=== PATIENT | female | born 1995 | race Caucasian/White ===

== ENCOUNTER 2023-10-07 21:11 | Inpatient (IN) ==
[2023-10-07] MEDS: SODIUM CHLORIDE 0.9% 1,000 ML IV SCH (21:44)
[2023-10-07 22:21] LABS: Appearance Urine Clear (Clear); Bilirubin Urine Negative (Negative); Blood Urine Negative (Negative); Color Urine Yellow; Glucose Urine UA Negative (Negative); Ketones Urine Trace (Negative); Leukocyte Esterase Urine Negative (Negative); Nitrite Urine Negative (Negative); Protein Urine Negative (Negative); Specific Gravity Urine 1.033 (1.000-1.030); Urobilinogen Urine Negative (Negative); pH Urine 6.5 (4.5-7.5)
[2023-10-07] MEDS: SODIUM CHLORIDE 0.9% 1,000 ML IV ONE (22:22)
[2023-10-07] MEDS: MAGNESIUM SULFATE / D5W 1 GM/100 ML BAG IV SCH (22:23)
[2023-10-07 22:27] LABS: Basophils # (auto) 0.03 K/uL (0.00-0.20); Basophils % (auto) 0.4 %; Eosinophils # (auto) 0.13 K/uL (0.00-0.50); Eosinophils % (auto) 1.7 %; Hematocrit (blood only) 41.4 % (37.0-47.0); Hemoglobin 13.7 g/dl (12.0-16.0); Immature Granulocytes # (auto) 0.04 K/uL (0.01-0.20); Immature Granulocytes % (auto) 0.5 %; Lymphocytes # (auto) 1.39 K/uL (1.20-3.40); Lymphocytes % (auto) 17.7 %; Mean Corpuscular Hemoglobin 29.6 pg (25.0-34.0); Mean Corpuscular Hgb Conc 33.1 g/dL (32.0-36.0); Mean Corpuscular Volume 89.4 fL (80.0-100.0); Monocytes # (auto) 0.53 K/uL (0.11-0.59); Monocytes % (auto) 6.7 %; Neutrophils # (auto) 5.74 K/uL (1.40-6.50); Platelet Count 267 K/uL (130-400); RDW Coefficient of Variation 13.1 % (11.5-14.5); RDW Standard Deviation 42.9 fL (36.4-46.3); Red Blood Count 4.63 M/uL (4.20-5.40); White Blood Count 7.86 K/ul (4.8-10.8)
--- NOTE | 2023-10-07 22:41 | CT Scan Report ---
Exam(s): CT HEAD Without Contrast EXAM: CT Head Without Intravenous Contrast CLINICAL HISTORY: Reason for exam: ams. TECHNIQUE: Axial computed tomography images of the head/brain without intravenous contrast. CTDI is 79 mGy and DLP is 3073 mGy-cm. Automated exposure control was utilized for the study. A dose lowering technique was utilized adhering to the principles of ALARA. COMPARISON: No relevant prior studies available. FINDINGS: Limitations: Motion artifact. Brain: Unremarkable. No hemorrhage. No significant white matter disease. No edema. Cifuentes-white matter differentiation maintained. Ventricles: Unremarkable. No hydrocephalus. Bones/joints: Unremarkable. No acute fracture. Soft tissues: Unremarkable. Sinuses: Unremarkable as visualized. No acute sinusitis. Mastoid air cells: Unremarkable as visualized. No mastoid effusion. IMPRESSION: Degraded by motion. No acute intracranial process as visualized. Electronically signed by: Jeanne Davidson M.D. 10/07/23 22:40 PM
[2023-10-07 22:46] LABS: Amphetamines+Metham, Urine Neg (Neg); Barbiturates, Urine Neg (Neg); Benzodiazepine, Urine Neg (Neg); Cocaine, Urine Neg (Neg); MDMA (Ecstacy), Urine Neg (Neg); Marijuana, Urine Pos (Neg); Methadone, Urine Neg (Neg); Opiate, Urine Neg (Neg); Phencyclidine, Urine Neg (Neg)
[2023-10-07 22:54] LABS: Alanine Aminotransferase 83 U/L (7-52); Albumin Globulin Ratio 1.1 (0.9-2); Albumin Level 3.9 gm/dl (3.4-5.0); Alkaline Phosphatase 130 U/L (34-104); BUN Creatinine Ratio 24.3 (10-20); Bilirubin,Total 0.3 mg/dl (0.2-1.0); Blood Urea Nitrogen 17 mg/dl (6-23); Calcium 8.7 mg/dl (8.6-10.3); Carbon Dioxide 23 mmol/L (21-32); Chloride 105 mmol/L (98-107); Creatinine Clr Calc Pharmacy 167.6 ml/min; Est GFR (African American) 138.6 ml/min; Est GFR (Non-African American) 119.6 ml/min; Globulin 3.6 gm/dl (2.5-4.0); Glucose 116 mg/dl (70-99(Fasting)); Total Protein 7.5 gm/dl (6.0-8.3)
[2023-10-07 23:00] LABS: Thyroid Stimulating Hormone 7.977 uIu/ml (0.300-4.500)
--- NOTE | 2023-10-07 23:04 | Emergency Department Note ---
History of Present Illness General Chief complaint: Overdose (Intentional) Stated complaint: OVERDOSE Time Seen by Provider: 10/07/23 21:24 Source: EMS History of Present Illness Provider complaint: Overdose 28-year-old female from [facility] presents to the emergency department via EMS for overdose. Per nursing and EMS the patient took 10 tablets of 50 mg hydroxyzine at an unknown time. Home Medications Medication Instructions Recorded Confirmed Type albuterol sulfate 90 mcg/actuation 2 puff inhalation QID 11/23/22 01/29/23 History aerosol inhaler aripiprazole 5 mg tablet 5 mg PO DAILY 11/23/22 01/29/23 History melatonin 3 mg tablet 6 mg PO HS PRN Sleep 11/23/22 01/29/23 History cariprazine 3 mg capsule (Vraylar) 3 mg PO DAILY 11/26/22 01/29/23 History doxepin 50 mg capsule 50 mg PO DAILY 11/26/22 01/29/23 History prazosin 2 mg capsule 4 mg PO QPM 11/26/22 01/29/23 History sennosides 8.6 mg-docusate sodium 1 tab-cap PO BID 11/26/22 01/29/23 History 50 mg tablet (Senna with Docusate Sodium) levothyroxine 25 mcg tablet 25 mcg PO DAILY #30 tabs 12/11/22 01/29/23 Rx drospirenone 3 mg-ethinyl 1 tab PO DAILY #84 tabs 12/23/22 01/29/23 Rx estradiol 0.02 mg tablet (ALFA (28)) famotidine 20 mg tablet 20 mg PO HS #90 tabs 12/23/22 01/29/23 Rx cetirizine 10 mg tablet 10 mg PO DAILY #30 tabs 01/21/23 01/29/23 Rx fluticasone propionate 50 2 spray intranasal DAILY #16 grams 01/21/23 01/29/23 Rx mcg/actuation nasal spray,suspension (Allergy Relief (fluticasone)) amoxicillin 500 mg capsule 500 mg PO TID 01/29/23 01/29/23 History doxycycline monohydrate 100 mg 100 mg PO BID #20 tabs 01/29/23 01/29/23 Rx tablet fexofenadine 180 mg tablet 180 mg PO DAILY #30 tabs 06/09/23 06/09/23 Rx (Guerda Allergy) fluticasone propionate 50 See Rx Instructions .Route 01/29/23 01/29/23 Rx mcg/actuation nasal .COMPLEX #9.9 grams spray,suspension (Allergy Relief (fluticasone)) prednisone 20 mg tablet 40 mg (2 x 20 mg) PO DAILY 5 days 01/29/23 01/29/23 Rx #10 tabs Allergies Allergy/AdvReac Type Severity Reaction Status Date / Time aspirin Allergy Intermediate hives Verified 01/29/23 13:58 Past Med/Surg History Medical History Hemorrhoids Chronic constipation Asthma Mood disorder Bipolar 1 disorder Learning disability PTSD (post-traumatic stress disorder) Bipolar disorder Anxiety Depression Surgical History No significant past surgical history Family History Father Myocardial infarction Other No significant family history Social History Smoking Status: Unknown if ever smoked Tobacco Type: Cigarettes and E-cigarettes / Vaping Do You Dip or Chew Tobacco: No; Hx Alcohol Use: No Hx Substance Use: No Preferred Language: Maltese marital status: Single Current Living Situation: Significant Other current occupational status: disabled How many Children do You have: 0 Feels Safe at Home: Declines to Answer Gender Identity: Female Physical Exam Vital Signs Vital Signs - 24 hr 10/07/23 21:04 10/07/23 21:19 10/07/23 21:19 Temperature Temperature Source Pulse Rate 149 H 146 H Pulse Rate from SpO2 Sensor 148 H Respiratory Rate 27 H Blood Pressure Blood Pressure Mean Pulse Oximetry 91 Oxygen Delivery Method Oxymask Oxygen Flow Rate 5 Sepsis Recent Fever Within 48 Hours Sepsis New/Unexplained Change in Mental Status Sepsis Action Taken by Nursing 10/07/23 21:20 10/07/23 21:20 10/07/23 21:25 Temperature 36.9 C Temperature Source Axillary Pulse Rate 136 H 136 H 121 H Pulse Rate from SpO2 Sensor 138 H Respiratory Rate 19 19 26 H Blood Pressure 143/114 H 102/75 Blood Pressure Mean 122 84 Pulse Oximetry 95 95 96 Oxygen Delivery Method Oxymask Oxymask Oxygen Flow Rate 5 5 Sepsis Recent Fever Within 48 Hours No Sepsis New/Unexplained Change in Mental Status No Sepsis Action Taken by Nursing No Action Required 10/07/23 21:30 10/07/23 21:40 10/07/23 21:43 Temperature Temperature Source Pulse Rate 140 H 126 H 125 H Pulse Rate from SpO2 Sensor 140 H 125 H 128 H Respiratory Rate 18 23 21 Blood Pressure Blood Pressure Mean Pulse Oximetry 94 97 95 Oxygen Delivery Method Oxygen Flow Rate Sepsis Recent Fever Within 48 Hours Sepsis New/Unexplained Change in Mental Status Sepsis Action Taken by Nursing 10/07/23 21:43 10/07/23 21:45 10/07/23 21:45 Temperature Temperature Source Pulse Rate 126 H Pulse Rate from SpO2 Sensor 127 H Respiratory Rate 24 Blood Pressure 104/88 107/82 Blood Pressure Mean 99 101 Pulse Oximetry 96 Oxygen Delivery Method Oxygen Flow Rate Sepsis Recent Fever Within 48 Hours Sepsis New/Unexplained Change in Mental Status Sepsis Action Taken by Nursing 10/07/23 21:50 10/07/23 22:00 10/07/23 22:00 Temperature Temperature Source Pulse Rate 122 H 119 H 119 H Pulse Rate from SpO2 Sensor 122 H 120 H Respiratory Rate 25 H 27 H 27 H Blood Pressure 102/75 Blood Pressure Mean 86 Pulse Oximetry 96 96 96 Oxygen Delivery Method Oxygen Flow Rate Sepsis Recent Fever Within 48 Hours Sepsis New/Unexplained Change in Mental Status Sepsis Action Taken by Nursing 10/07/23 22:02 10/07/23 22:02 Temperature Temperature Source Pulse Rate 118 H 118 H Pulse Rate from SpO2 Sensor 118 H Respiratory Rate 22 22 Blood Pressure 100/82 Blood Pressure Mean 93 Pulse Oximetry 96 96 Oxygen Delivery Method Oxygen Flow Rate Sepsis Recent Fever Within 48 Hours Sepsis New/Unexplained Change in Mental Status Sepsis Action Taken by Nursing Physical Exam GENERAL: Somnolent and ill-appearing. HENT: Exam performed. - Head: Normocephalic and atraumatic. EYES: Pupils 3 mm and reactive. CV: Tachycardic rate, regular rhythm, normal heart sounds and intact distal pulses. There is no peripheral edema. Palpable radial pulses bue. PULM/CHEST: Rhonchi bilaterally. ABD: The abdomen is soft. Obese. There is no tenderness. NEURO: GCS: 9 (E:2, V:2, M:5) Procedures Intubation sedative: Etomidate Mg Given: 20 paralytic: Succinylcholine Mg Given: 200 Laryngoscope: Yang (4) ET Tube Size: 7 ET Tube Uncuffed: Yes Tube Placement Confirmation: visualized tube passing through cords, no breath sounds over epigastrium and confirmation by capnometry Patient Tolerated Procedure: well Additional Comments: Right mainstem bronchus was intubated and then ET tube was repositioned after x- ray was reviewed. After repositioning chest x-ray then showed a satisfactory position. Course Course 2123: The patient was evaluated in room A7. A complete history and physical exam was performed Cardiac monitoring: An order was placed for continuous cardiac monitoring. The monitor shows a rate of 120 with sinus tachycardia rhythm interpreted by me 2149: EKGs show prolonged QTc. Discussed the case with poison control. They state that this is most likely anticholinergic toxicity from the hydroxyzine. They state that this is most likely reason for patient's tachycardia somnolence agitation. They stated could lead to seizures. They recommend giving 2 g of magnesium sulfate given the prolonged QTc. They stated that an EKG she repeated 3 hours after the magnesium infused. They recommend IV fluids for the patient. Poison control recommends keeping magnesium above 2 and potassium above 4. 2337: Patient becoming increasingly somnolent. GCS 7 (E: 2, V:1, M: 4). Patient was brought to resuscitation bay and intubated. See procedure note. Labs are hemolyzed. [facility] the patient. 0004: Salicylate and Tylenol negative. Potassium 3.8. 20 mill equivalents will be administered IV after the magnesium is done infusing to make the potassium greater than 4 as recommended by poison control. Administered Medications Discontinued Medications Sodium Chloride (Nss) 1,000 mls @ 999 mls/hr IV .Q1H1M ANGELICA Stop: 10/07/23 22:30 Last Infusion: 10/07/23 23:54 Dose: Infused Documented By: Admin: 10/07/23 21:44 Dose: 999 mls/hr Documented By: PETER Sodium Chloride (Nss) 1,000 mls @ 999 mls/hr IV .Q1H1M ONE Stop: 10/07/23 22:42 Last Admin: 10/07/23 22:22 Dose: Not Given Documented By: PETER Magnesium Sulfate/Dextrose (Magnesium Sulfate / D5w) 1 gm in 100 mls @ 100 mls/hr IV Q1H ANGELICA Stop: 10/07/23 23:44 Last Infusion: 02/15/24 23:54 Dose: Infused Documented By: Admin: 10/07/23 22:23 Dose: 100 mls/hr Documented By: PETER Critical Care Time Critical Care Time: Yes Total Critical Care Time: 62 I have personally spent greater than 62 minutes of critical care time in the direct management of this patient. This includes bedside care, interpretation of diagnostic studies, and testing, discussion with consultants, patient, and family members, and other required patient management activities. This 62 minutes is in excess of all separately billable procedures. Medical Decision Making Laboratory Data Attestation: I reviewed the patient's lab results. 10/07/23 21:41 10/07/23 23:04 Lab Results 10/07/23 10/07/23 10/07/23 Range/Units 21:41 22:00 22:34 WBC 7.86 (4.8-10.8) K/ul RBC 4.63 (4.20-5.40) M/uL Hgb 13.7 (12.0-16.0) g/dl POC Hgb (12.0-16.0) g/dl Hct 41.4 (37.0-47.0) % POC Hct (37-47) % MCV 89.4 (80.0-100.0) fL MCH 29.6 (25.0-34.0) pg MCHC 33.1 (32.0-36.0) g/dL RDW Std Deviation 42.9 (36.4-46.3) fL RDW Coeff of Tita 13.1 (11.5-14.5) % Plt Count 267 (130-400) K/uL MPV 10.0 (9.4-12.4) fL Immature Gran % (Auto) 0.5 % Neut % (Auto) 73.0 % Lymph % (Auto) 17.7 % [place] % (Auto) 6.7 % Eos % (Auto) 1.7 % Baso % (Auto) 0.4 % Neut # (Auto) 5.74 (1.40-6.50) K/uL Lymph # (Auto) 1.39 (1.20-3.40) K/uL [place] # (Auto) 0.53 (0.11-0.59) K/uL Eos # (Auto) 0.13 (0.00-0.50) K/uL Baso # (Auto) 0.03 (0.00-0.20) K/uL Immature Gran # (Auto) 0.04 (0.01-0.20) K/uL POC Sodium (135-144) mmol/L Sodium TNP POC Potassium (3.3-5.0) mmol/L Potassium TNP POC Chloride (101-112) mmol/L Chloride 105 (98-107) mmol/L Carbon Dioxide 23 (21-32) mmol/L POC Total CO2 (24-31) mmol/L Anion Gap TNP POC Anion Gap (16-25) mmol/L POC BUN (7-18) mg/dl BUN 17 (6-23) mg/dl Creatinine 0.70 (0.6-1.2) mg/dl POC Creatinine (0.6-1.3) mg/dl Est Cr Clr Drug Dosing 167.6 ml/min Est GFR ( Amer) 138.6 ml/min Est GFR (Non-Af Amer) 119.6 ml/min BUN/Creatinine Ratio 24.3 H (10-20) Glucose 116 H (70-99(Fasting)) mg/dl POC Glucose 105 H (70-99) mg/dl POC Glucose (other) (70-99) mg/dl Calcium 8.7 (8.6-10.3) mg/dl POC Ioniz Calcium Jyothi (1.12-1.32) mmol/l Magnesium TNP Total Bilirubin 0.3 (0.2-1.0) mg/dl AST TNP ALT 83 H (7-52) U/L Alkaline Phosphatase 130 H (34-104) U/L Total Protein 7.5 (6.0-8.3) gm/dl Albumin 3.9 (3.4-5.0) gm/dl Globulin 3.6 (2.5-4.0) gm/dl Albumin/Globulin Ratio 1.1 (0.9-2) TSH 7.977 H (0.300-4.500) uIu/ml Free T4 0.87 (0.61-1.60) ng/dl HCG, Quant < 1 mIU/ml Urine Color Yellow Urine Appearance Clear (Clear) Urine pH 6.5 (4.5-7.5) Ur Specific [place] 1.033 H (1.000-1.030) Urine Protein Negative (Negative) Urine Glucose (UA) Negative (Negative) Urine Ketones Trace H (Negative) Urine Blood Negative (Negative) Urine Nitrite Negative (Negative) Urine Bilirubin Negative (Negative) Urine Urobilinogen Negative (Negative) Ur Leukocyte Esterase Negative (Negative) POC Ur Test (NEG) Salicylates < 3.0 L (3.0-30) mg/dl Urine Opiates Screen Neg (Neg) Ur Methadone, Qual Neg (Neg) Acetaminophen 3 L (10-30) ug/ml Urine Barbiturates Neg (Neg) Ur Phencyclidine (PCP) Neg (Neg) U Amphetamin/Meth Scrn Neg (Neg) MDMA (Ecstasy) Screen Neg (Neg) U Benzodiazepines Scrn Neg (Neg) Ur Cocaine Metabolite Neg (Neg) U Marijuana (THC) Screen Pos H (Neg) Ethyl Alcohol mg/dL < 10.0 (<10.0) mg/dl SARS-CoV-2, RNA, NAAT NEGATIVE (NEGATIVE) 10/07/23 10/07/23 10/07/23 Range/Units 23:04 23:09 Unknown WBC (4.8-10.8) K/ul RBC (4.20-5.40) M/uL Hgb (12.0-16.0) g/dl POC Hgb 13.9 (12.0-16.0) g/dl Hct (37.0-47.0) % POC Hct 41 (37-47) % MCV (80.0-100.0) fL MCH (25.0-34.0) pg MCHC (32.0-36.0) g/dL RDW Std Deviation (36.4-46.3) fL RDW Coeff of Tita (11.5-14.5) % Plt Count (130-400) K/uL MPV (9.4-12.4) fL Immature Gran % (Auto) % Neut % (Auto) % Lymph % (Auto) % [place] % (Auto) % Eos % (Auto) % Baso % (Auto) % Neut # (Auto) (1.40-6.50) K/uL Lymph # (Auto) (1.20-3.40) K/uL [place] # (Auto) (0.11-0.59) K/uL Eos # (Auto) (0.00-0.50) K/uL Baso # (Auto) (0.00-0.20) K/uL Immature Gran # (Auto) (0.01-0.20) K/uL POC Sodium 139 (135-144) mmol/L Sodium 137 POC Potassium 3.8 (3.3-5.0) mmol/L Potassium 3.8 POC Chloride 104 (101-112) mmol/L Chloride (98-107) mmol/L Carbon Dioxide (21-32) mmol/L POC Total CO2 26 (24-31) mmol/L Anion Gap POC Anion Gap 15.0 L (16-25) mmol/L POC BUN 16 (7-18) mg/dl BUN (6-23) mg/dl Creatinine (0.6-1.2) mg/dl POC Creatinine 0.7 (0.6-1.3) mg/dl Est Cr Clr Drug Dosing ml/min Est GFR ( Amer) ml/min Est GFR (Non-Af Amer) ml/min BUN/Creatinine Ratio (10-20) Glucose (70-99(Fasting)) mg/dl POC Glucose (70-99) mg/dl POC Glucose (other) 132 H (70-99) mg/dl Calcium (8.6-10.3) mg/dl POC Ioniz Calcium Jyothi 1.16 (1.12-1.32) mmol/l Magnesium 2.1 Total Bilirubin (0.2-1.0) mg/dl AST 48 H ALT (7-52) U/L Alkaline Phosphatase (34-104) U/L Total Protein (6.0-8.3) gm/dl Albumin (3.4-5.0) gm/dl Globulin (2.5-4.0) gm/dl Albumin/Globulin Ratio (0.9-2) TSH (0.300-4.500) uIu/ml Free T4 (0.61-1.60) ng/dl HCG, Quant mIU/ml Urine Color Urine Appearance (Clear) Urine pH (4.5-7.5) Ur Specific [place] (1.000-1.030) Urine Protein (Negative) Urine Glucose (UA) (Negative) Urine Ketones (Negative) Urine Blood (Negative) Urine Nitrite (Negative) Urine Bilirubin (Negative) Urine Urobilinogen (Negative) Ur Leukocyte Esterase (Negative) POC Ur Test NEG (NEG) Salicylates (3.0-30) mg/dl Urine Opiates Screen (Neg) Ur Methadone, Qual (Neg) Acetaminophen (10-30) ug/ml Urine Barbiturates (Neg) Ur Phencyclidine (PCP) (Neg) U Amphetamin/Meth Scrn (Neg) MDMA (Ecstasy) Screen (Neg) U Benzodiazepines Scrn (Neg) Ur Cocaine Metabolite (Neg) U Marijuana (THC) Screen (Neg) Ethyl Alcohol mg/dL (<10.0) mg/dl SARS-CoV-2, RNA, NAAT (NEGATIVE) Imaging Data Attestation: I personally reviewed and interpreted this imaging study as follows: My Impression: Chest x-ray #1 at 2327: ETT in the right mainstem bronchus. Chest x-ray #2 at 2330 status post ETT repositioning: ETT in place. No free air under the diaphragm. No pneumothorax. No skeletal fractures. OG tube appears in place. Radiologist's Impression: Head CT 10/07/23 21:33 Exam(s): CT HEAD Without Contrast EXAM: CT Head Without Intravenous Contrast CLINICAL HISTORY: Reason for exam: ams. TECHNIQUE: Axial computed tomography images of the head/brain without intravenous contrast. CTDI is 79 mGy and DLP is 3073 mGy-cm. Automated exposure control was utilized for the study. A dose lowering technique was utilized adhering to the principles of ALARA. COMPARISON: No relevant prior studies available. FINDINGS: Limitations: Motion artifact. Brain: Unremarkable. No hemorrhage. No significant white matter disease. No edema. Cifuentes-white matter differentiation maintained. Ventricles: Unremarkable. No hydrocephalus. Bones/joints: Unremarkable. No acute fracture. Soft tissues: Unremarkable. Sinuses: Unremarkable as visualized. No acute sinusitis. Mastoid air cells: Unremarkable as visualized. No mastoid effusion. IMPRESSION: Degraded by motion. No acute intracranial process as visualized. Electronically signed by: Jeanne Davidson M.D. 10/07/23 22:40 PM ECG Data Attestation: I personally reviewed and interpreted this ECG as follows: Additional Comments: EKG #1 at 2120: Sinus tachycardia with a rate of 144. OR 104 QRS [address] elevation or ST depression. EKG #2 at 2135: Sinus tachycardia with a rate of 129. OR 180 QRS [address] elevation or ST depression [facility] Narrative 2124: The patient was evaluated in room A7. A complete history and physical exam was performed Cardiac monitoring: An order was placed for continuous cardiac monitoring. The monitor shows a rate of 120 with sinus tachycardia rhythm interpreted by me 2149: EKGs show prolonged QTc. Discussed the case with poison control. They state that this is most likely anticholinergic toxicity from the hydroxyzine. They state that this is most likely reason for patient's tachycardia somnolence agitation. They stated could lead to seizures. They recommend giving 2 g of magnesium sulfate given the prolonged QTc. They stated that an EKG she repeated 3 hours after the magnesium infused. They recommend IV fluids for the patient. Poison control recommends keeping magnesium above 2 and potassium above 4. 2337: Patient becoming increasingly somnolent. GCS 7 (E: 2, V:1, M: 4). Patient was brought to resuscitation bay and intubated. See procedure note. Labs are hemolyzed. [facility] to [facility] the patient. 0004: Salicylate and Tylenol negative. Potassium 3.8. 20 mill equivalents will be administered IV after the magnesium is done infusing to make the potassium greater than 4 as recommended by poison control. Impression & Plan Intentional overdose of hydralazine Discharge Plan Visit Data Chief Complaint: Overdose (Intentional) Stated Complaint: OVERDOSE ED Provider: Amadou Phillips Discharge Problem: Intentional overdose of hydralazine Patient Disposition: Admitted As Inpatient Forms Stand Alone Forms: [facility], Suicide Prevention Resources Prescriptions Prescriptions: No Action levothyroxine 25 mcg tablet 25 mcg PO DAILY Qty: 30 2RF famotidine 20 mg tablet 20 mg PO HS Qty: 90 3RF drospirenone-ethinyl estradiol [ALFA (28)] 3-0.02 mg tablet 1 tab PO DAILY Qty: 84 1RF cetirizine 10 mg tablet 10 mg PO DAILY Qty: 30 0RF fluticasone propionate [Allergy Relief (fluticasone)] 50 mcg/actuation spray,suspension 2 spray intranasal DAILY Qty: 16 0RF Rx Instructions: administer into each nostril amoxicillin 500 mg capsule 500 mg PO TID fluticasone propionate [Allergy Relief (fluticasone)] 50 mcg/actuation spray,suspension See Rx Instructions .Route .COMPLEX Qty: 9.9 2RF Rx Instructions: administer into each nostril 2 sprays BID x 3 days then 2 sprays each nostril at Bedtime thereafter prednisone 20 mg tablet 40 mg PO DAILY 5 Days Qty: 10 0RF doxycycline monohydrate 100 mg tablet 100 mg PO BID Qty: 20 0RF fexofenadine [Guerda Allergy] 180 mg tablet 180 mg PO DAILY Qty: 30 0RF aripiprazole 5 mg tablet 5 mg PO DAILY melatonin 3 mg tablet 6 mg PO HS PRN (Reason: Sleep) albuterol sulfate 90 mcg/actuation HFA aerosol inhaler 2 puff inhalation QID doxepin 50 mg capsule 50 mg PO DAILY sennosides-docusate sodium [Senna with Docusate Sodium] 8.6-50 mg tablet 1 tab-cap PO BID prazosin 2 mg capsule 4 mg PO QPM Vraylar 3 mg capsule 3 mg PO DAILY Referrals Referrals: PCP,NO [Primary Care Provider] -
[2023-10-07 23:15] LABS: Acetaminophen 3 ug/ml (10-30); Salicylate < 3.0 mg/dl (3.0-30)
[2023-10-07 23:21] LABS: iSTAT Creatinine 0.7 mg/dl (0.6-1.3); iSTAT Hemoglobin 13.9 g/dl (12.0-16.0); iSTAT Ionized Calcium 1.16 mmol/l (1.12-1.32); iSTAT Potassium 3.8 mmol/L (3.3-5.0)
[2023-10-07] MEDS: propofoL 1,000 MG/100 ML VIAL IV SCH (23:29)
[2023-10-07 23:37] LABS: T4 Free Thyroxine 0.87 ng/dl (0.61-1.60)
--- NOTE | 2023-10-07 23:44 | History & Physical Report ---
Date of Service October 07, 2023 Assessment & Plan (1) Intentional overdose: Plan: 28yo female presenting after intentional overdose - presumably took 10-15 tablets of hydroxyzine at 20:30. Patient intubated for airway protection in the ER as she had progressive decline of her mental status -Admit to MICU -Continue sedation with Propofol gtt, Fentanyl PRN pain -Seizure precautions -Monitor EKG now and q 4 hours -Administer Mg for prolonged QTc and HCO3 for prolonged QRS -Avoid further QT prolonging agents -IVF with LR at 115mL/hr -Suicide precautions and Psychiatric consultation after patient is extubated -Currently on 302 (2) Bipolar 1 disorder: Plan: Chronic -Hold home medications for now. Need to clarify what patient is taking when able (3) Asthma: Plan: Chronic. No wheezing appreciated on exam -Albuterol PRN History of Present Illness Chief Complaint: intentional overdose Primary Care Provider: NO PCP Alicia Jones is a 28yo female with history of Asthma, PTSD, Anxiety/Depression and Bipolar I presenting from [facility] after an intentional overdose of presumably Hydroxyzine. Patient intubated at time of encounter - history obtained through discussion with ER staff and chart review. At 20:30 patient notified staff member that she took 10-15 tablets of hydroxyzine because "it was too much". Upon arrival to the ER patient with GSC of 9. She was being managed conservatively but her mental state declined and she became less arousable. She was ultimately intubated for airway protection. Poison Control contacted by ER staff - recommend Magnesium for the QTc prolongation with repeat EKG testing and Ativan as needed for seizure activity. ER Course: NSS x 2L Mg x 2gm Propofol KCL 10mEq Allergies Allergy/AdvReac Type Severity Reaction Status Date / Time aspirin Allergy Intermediate hives Verified 01/29/23 13:58 Home Medications Medication Instructions Recorded Confirmed Type albuterol sulfate 90 mcg/actuation 2 puff inhalation QID 11/23/22 01/29/23 History aerosol inhaler aripiprazole 5 mg tablet 5 mg PO DAILY 11/23/22 01/29/23 History melatonin 3 mg tablet 6 mg PO HS PRN Sleep 11/23/22 01/29/23 History cariprazine 3 mg capsule (Vraylar) 3 mg PO DAILY 11/26/22 01/29/23 History doxepin 50 mg capsule 50 mg PO DAILY 11/26/22 01/29/23 History prazosin 2 mg capsule 4 mg PO QPM 11/26/22 01/29/23 History sennosides 8.6 mg-docusate sodium 1 tab-cap PO BID 11/26/22 01/29/23 History 50 mg tablet (Senna with Docusate Sodium) levothyroxine 25 mcg tablet 25 mcg PO DAILY #30 tabs 12/11/22 01/29/23 Rx drospirenone 3 mg-ethinyl 1 tab PO DAILY #84 tabs 12/23/22 01/29/23 Rx estradiol 0.02 mg tablet (ALFA (28)) famotidine 20 mg tablet 20 mg PO HS #90 tabs 12/23/22 01/29/23 Rx cetirizine 10 mg tablet 10 mg PO DAILY #30 tabs 01/21/23 01/29/23 Rx fluticasone propionate 50 2 spray intranasal DAILY #16 grams 01/21/23 01/29/23 Rx mcg/actuation nasal spray,suspension (Allergy Relief (fluticasone)) amoxicillin 500 mg capsule 500 mg PO TID 01/29/23 01/29/23 History doxycycline monohydrate 100 mg 100 mg PO BID #20 tabs 01/29/23 01/29/23 Rx tablet fexofenadine 180 mg tablet 180 mg PO DAILY #30 tabs 01/29/23 01/29/23 Rx (Guerda Allergy) fluticasone propionate 50 See Rx Instructions .Route 01/29/23 01/29/23 Rx mcg/actuation nasal .COMPLEX #9.9 grams spray,suspension (Allergy Relief (fluticasone)) prednisone 20 mg tablet 40 mg (2 x 20 mg) PO DAILY 5 days 01/29/23 01/29/23 Rx #10 tabs Past Med/Surg History Medical History Suicidal ideation Hemorrhoids Chronic constipation Asthma Mood disorder Bipolar 1 disorder Learning disability PTSD (post-traumatic stress disorder) Bipolar disorder Anxiety Depression Surgical History No significant past surgical history Family History Father Myocardial infarction Other No significant family history Social History Smoking Status: Unknown if ever smoked Tobacco Type: Cigarettes and E-cigarettes / Vaping Do You Dip or Chew Tobacco: No; Hx Alcohol Use: No Hx Substance Use: No Preferred Language: Cambodian marital status: Single Current Living Situation: Significant Other current occupational status: disabled How many Children do You have: 0 Feels Safe at Home: Declines to Answer Gender Identity: Female Review of Systems Review of Systems: Unobtainable due to endotracheal tube Physical Exam Physical Exam: General: patient intubated and sedated Skin: warm, dry, intact, no rashes or lesions HEENT: NC/AT, PERRL, anicteric sclera, conjunctiva without injection, external ear normal to inspection and nontender, nares patent, moist mucus membranes, ETT in place, neck supple, trachea midline, no LAD, no thyromegaly, no JVD Heart: +S1/S2, regular, no m/r/g Lungs: equal air entry bilaterally, coarse breath sounds left lung Abd: +BS, soft, ND, no masses/organomegaly/ascites Ext: warm, 2+ pulses in UE/LE bilaterally, no clubbing/cyanosis or edema Neuro: moving all extremities prior to intubation. withdraws from noxious stimuli Results & Data Results & Data Vital Signs (Past 12 Hours) Vital Signs Temp Pulse Resp BP Pulse Ox O2 Del Method O2 Flow Rate 10/07/23 22:02 118 H 22 96 10/07/23 22:02 118 H 22 100/82 96 10/07/23 22:00 119 H 27 H 102/75 96 10/07/23 22:00 119 H 27 H 96 10/07/23 21:50 122 H 25 H 96 10/07/23 21:45 107/82 10/07/23 21:45 126 H 24 96 10/07/23 21:43 104/88 10/07/23 21:43 125 H 21 95 10/07/23 21:40 126 H 23 97 10/07/23 21:30 140 H 18 94 10/07/23 21:25 36.9 C 121 H 26 H 102/75 96 Oxymask 5 10/07/23 21:20 136 H 19 143/114 H 95 Oxymask 5 10/07/23 21:20 136 H 19 95 10/07/23 21:19 146 H 27 H 91 10/07/23 21:19 149 H 10/07/23 21:04 Oxymask 5 Laboratory Results Laboratory Results WBC 7.86 K/ul (4.8-10.8) 10/07/23 21:41 RBC 4.63 M/uL (4.20-5.40) 10/07/23 21:41 Hgb 13.7 g/dl (12.0-16.0) 10/07/23 21:41 POC Hgb 13.6 g/dl (12.0-16.0) 10/08/23 01:35 Hct 41.4 % (37.0-47.0) 10/07/23 21:41 POC Hct 40 % (37-47) 10/08/23 01:35 MCV 89.4 fL (80.0-100.0) 10/07/23 21:41 MCH 29.6 pg (25.0-34.0) 10/07/23 21:41 MCHC 33.1 g/dL (32.0-36.0) 10/07/23 21:41 RDW Std Deviation 42.9 fL (36.4-46.3) 10/07/23 21:41 RDW Coeff of Tita 13.1 % (11.5-14.5) 10/07/23 21:41 Plt Count 267 K/uL (130-400) 10/07/23 21:41 MPV 10.0 fL (9.4-12.4) 10/07/23 21:41 Immature Gran % (Auto) 0.5 % 10/07/23 21:41 Neut % (Auto) 73.0 % 10/07/23 21:41 Lymph % (Auto) 17.7 % 10/07/23 21:41 Person % (Auto) 6.7 % 10/07/23 21:41 Eos % (Auto) 1.7 % 10/07/23 21:41 Baso % (Auto) 0.4 % 10/07/23 21:41 Neut # (Auto) 5.74 K/uL (1.40-6.50) 10/07/23 21:41 Lymph # (Auto) 1.39 K/uL (1.20-3.40) 10/07/23 21:41 Person # (Auto) 0.53 K/uL (0.11-0.59) 10/07/23 21:41 Eos # (Auto) 0.13 K/uL (0.00-0.50) 10/07/23 21:41 Baso # (Auto) 0.03 K/uL (0.00-0.20) 10/07/23 21:41 Immature Gran # (Auto) 0.04 K/uL (0.01-0.20) 10/07/23 21:41 Sample Site R Radial 10/08/23 01:35 POC pH 7.33 (7.35-7.45) L 10/08/23 01:35 POC pCO2 45 mmHg (35-46) 10/08/23 01:35 POC pO2 127 mmHg (80-95) H 10/08/23 01:35 POC HCO3 24 manuela/L (19-24) 10/08/23 01:35 POC Total CO2 25 mmol/L (24-31) 10/08/23 01:35 POC Base Excess -3.0 manuela/L (-9-1.8) 10/08/23 01:35 ABG pH (Temp Correct) 7.335 (7.35-7.45) L 10/08/23 01:35 ABG pCO2 (Temp Corrct 44 mmHg (35-46) 10/08/23 01:35 POC ABG pO2 at Pt Temp 122 10/08/23 01:35 POC ABG O2 Sat 99.0 % (90-95) H 10/08/23 01:35 Richie Test Pass 10/08/23 01:35 O2 Delivery Device Ventilator 10/08/23 01:35 POC O2 Rate 20 10/08/23 01:35 POC FiO2 50 % 10/08/23 01:35 Tidal Volume 420 10/08/23 01:35 PEEP 8 10/08/23 01:35 POC Sodium 138 mmol/L (135-144) 10/08/23 01:35 Sodium 137 mmol/L (136-145) 10/07/23 23:04 POC Potassium 4.1 mmol/L (3.3-5.0) 10/08/23 01:35 Potassium 3.8 mmol/L (3.5-5.1) 10/07/23 23:04 POC Chloride 104 mmol/L (101-112) 10/07/23 23:09 Chloride 105 mmol/L (98-107) 10/07/23 21:41 Carbon Dioxide 23 mmol/L (21-32) 10/07/23 21:41 POC Total CO2 26 mmol/L (24-31) 10/07/23 23:09 Anion Gap TNP 10/07/23 21:41 POC Anion Gap 15.0 mmol/L (16-25) L 10/07/23 23:09 POC BUN 16 mg/dl (7-18) 10/07/23 23:09 BUN 17 mg/dl (6-23) 10/07/23 21:41 Creatinine 0.70 mg/dl (0.6-1.2) 10/07/23 21:41 POC Creatinine 0.7 mg/dl (0.6-1.3) 10/07/23 23:09 Est Cr Clr Drug Dosing 167.6 ml/min 10/07/23 21:41 Est GFR ( Amer) 138.6 ml/min 10/07/23 21:41 Est GFR (Non-Af Amer) 119.6 ml/min 10/07/23 21:41 BUN/Creatinine Ratio 24.3 (10-20) H 10/07/23 21:41 Glucose 116 mg/dl (70-99(Fasting)) H 10/07/23 21:41 POC Glucose 110 mg/dl (70-99) H 10/08/23 01:54 POC Glucose (other) 132 mg/dl (70-99) H 10/07/23 23:09 Lactate 1.0 mmol/L (0.4-2.0) 10/08/23 01:24 Calcium 8.7 mg/dl (8.6-10.3) 10/07/23 21:41 POC Ioniz Calcium Jyothi 1.16 mmol/l (1.12-1.32) 10/07/23 23:09 Magnesium 2.1 mg/dl (1.7-2.4) 10/07/23 23:04 Total Bilirubin 0.3 mg/dl (0.2-1.0) 10/07/23 21:41 AST 48 U/L (13-39) H 10/07/23 23:04 ALT 83 U/L (7-52) H 10/07/23 21:41 Alkaline Phosphatase 130 U/L (34-104) H 10/07/23 21:41 Total Protein 7.5 gm/dl (6.0-8.3) 10/07/23 21:41 Albumin 3.9 gm/dl (3.4-5.0) 10/07/23 21:41 Globulin 3.6 gm/dl (2.5-4.0) 10/07/23 21:41 Albumin/Globulin Ratio 1.1 (0.9-2) 10/07/23 21:41 TSH 7.977 uIu/ml (0.300-4.500) H 10/07/23 21:41 Free T4 0.87 ng/dl (0.61-1.60) 10/07/23 21:41 HCG, Quant < 1 mIU/ml 10/07/23 21:41 Urine Color Yellow 10/07/23 22:00 Urine Appearance Clear (Clear) 10/07/23 22:00 Urine pH 6.5 (4.5-7.5) 10/07/23 22:00 Ur Specific Mcdonald 1.033 (1.000-1.030) H 10/07/23 22:00 Urine Protein Negative (Negative) 10/07/23 22:00 Urine Glucose (UA) Negative (Negative) 10/07/23 22:00 Urine Ketones Trace (Negative) H 10/07/23 22:00 Urine Blood Negative (Negative) 10/07/23 22:00 Urine Nitrite Negative (Negative) 10/07/23 22:00 Urine Bilirubin Negative (Negative) 10/07/23 22:00 Urine Urobilinogen Negative (Negative) 10/07/23 22:00 Ur Leukocyte Esterase Negative (Negative) 10/07/23 22:00 POC Ur Test NEG (NEG) 10/07/23 Unknown Nasal Screen MRSA (PCR) Negative (Negative) 10/08/23 01:15 Salicylates < 3.0 mg/dl (3.0-30) L 10/07/23 21:41 Urine Opiates Screen Neg (Neg) 10/07/23 22:00 Ur Methadone, Qual Neg (Neg) 10/07/23 22:00 Acetaminophen 3 ug/ml (10-30) L 02/15/24 21:41 Urine Barbiturates Neg (Neg) 10/07/23 22:00 Ur Phencyclidine (PCP) Neg (Neg) 10/07/23 22:00 U Amphetamin/Meth Scrn Neg (Neg) 10/07/23 22:00 MDMA (Ecstasy) Screen Neg (Neg) 10/07/23 22:00 U Benzodiazepines Scrn Neg (Neg) 10/07/23 22:00 Ur Cocaine Metabolite Neg (Neg) 10/07/23 22:00 U Marijuana (THC) Screen Pos (Neg) H 10/07/23 22:00 Ethyl Alcohol mg/dL < 10.0 mg/dl (<10.0) 10/07/23 21:41 SARS-CoV-2, RNA, NAAT NEGATIVE (NEGATIVE) 10/07/23 21:[address] 10/07/23 21:33 Exam(s): CT HEAD Without Contrast EXAM: CT Head Without Intravenous Contrast CLINICAL HISTORY: Reason for exam: ams. TECHNIQUE: Axial computed tomography images of the head/brain without intravenous contrast. CTDI is 79 mGy and DLP is 3073 mGy-cm. Automated exposure control was utilized for the study. A dose lowering technique was utilized adhering to the principles of ALARA. COMPARISON: No relevant prior studies available. FINDINGS: Limitations: Motion artifact. Brain: Unremarkable. No hemorrhage. No significant white matter disease. No edema. Cifuentes-white matter differentiation maintained. Ventricles: Unremarkable. No hydrocephalus. Bones/joints: Unremarkable. No acute fracture. Soft tissues: Unremarkable. Sinuses: Unremarkable as visualized. No acute sinusitis. Mastoid air cells: Unremarkable as visualized. No mastoid effusion. IMPRESSION: Degraded by motion. No acute intracranial process as visualized. Electronically signed by: Jeanne Davidson M.D. 10/07/23 22:40 PM ECG Additional Comments: EKG with NSR at 97bpm, XN=406, QRS=82, QTc prolonged at 497 PG Care Time/CCT Total # of Minutes Spent Total Time Spent with Patient: Total time spent is greater than 50% in coordination of care (as documented) at patient's floor/unit and/or counseling patient: Coding Level of Care Code 83733 INT INP/OBS CARE 3/75MIN Diagnoses Intentional overdose T50.902A Bipolar 1 disorder F31.9 Asthma J45.909
[2023-10-07 23:59] LABS: Magnesium 2.1 mg/dl (1.7-2.4); Potassium 3.8 mmol/L (3.5-5.1)
[2023-10-08] MEDS: SODIUM CHLORIDE 0.9% 1,000 ML IV ONE (00:13)
[2023-10-08] MEDS ORDERED: PROPOFOL BOLUS FROM BAG IV PRN ×2 (00:14→01:18)
[2023-10-08] MEDS: POTASSIUM CHLORIDE / WTR 10 MEQ/100 ML PLCT IV SCH ×2 (00:29→08:37)
--- NOTE | 2023-10-08 00:31 | Critical Care Consultation ---
Date of Consultation October 08, 2023 Assessment & Plan (1) Intentional overdose: (2) Bipolar 1 disorder: (3) Mood disorder: (4) Learning disability: (5) PTSD (post-traumatic stress disorder): (6) Suicidal ideation: Plan Reason Critically Ill: 28 YOF with reported ingestion of Hydroxyzine- unable to confirm actual ingestion agent, amount, or time. Intubated in the EMD for increasing sedation and obtundation. Neuro - Intentional ingestion, Sedation for mechanical ventilation, hx of suicidal ideations, bipolar I, PTSD hx CAM ICU: MADELINE - Continue with Propofol for sedation while intubated - Goal SCARLET -1 - Awake in am and trial of SBT if appropriate- should be able to extubate - Continue with seizure precautions as well as frequent neurological evaluations - LR at 115 ml per hour to dilute effects - OGT to suction - no pill fragments noted - Follow up with poison control as needed - Pych consultation appropriate after extubation - further recs regarding suicidal ideations/attempt - restart home psych medications once extubated - Currently on 302 Cardiac - Tachycardia, Prolonged QT - Likely secondary to ingestion - Continue with magnesium replacement - EKG q4 hours follow Qtc - No evidnece of shock noted- will check lactate on arrival Respiratory - Mechanically ventilated and intubated - Secondary to toxic encephalopathy resulting in obtundation - as above wean sedation in morning - if appropriate SBT and extubation likely - Possibly aspirated follow WBC and fever curve GI - HX GERD, Elevated LFTS - Continue PPI - OGT to LIWS - LFTS appear chronically elevated since 2012 - both however are downtrending since 09/14/23- follow in morning - unsure of chronic etiology at this time with limited notes for review - NPO- if unable to extubate initiate enteral feedings RENAL/LYTES - No acute needs - Obtain ABG following intubation - eval acid base status - Goal Mg ~2.0 and K ~4.o - No acute needs - Continue Bishop catheter while intubated and sedated- remove once extubated ENDO - Hyperglycemia without diagnosis of DM, Hypothyroidism - Continue Synthroid - ICU hyperglycemia protocol HEME - No acute needs ID - No concerns at this time for infective process- however follow pulmonary exam, fever curve and WBC for possible aspiration event prior to hospitalization/intubation - CXR with congestion of left and right lungs- Left improved following withdrawal of ETT LINES/IV ACCESS - PIV, Bishop, ETT, OGT Continue use of these lines DVT PROPHYLAXIS - SCDS, Lovenox 40 DISPO: ICU while intubated, mechanically ventilated, and sedated- on 302 can not leave AMA I have personally spent 45 minutes of critical care time in the direct management of this patient. This is a life/limb threatening event. This includes time spent evaluating patient, direct bedside care, chart review, placing orders, interpretation of diagnostic studies, discussion with consultants, patient, and family members, as well as other required patient management activities. This time is exclusive of all separately billable procedures, and teaching time and separate from and in addition to any other critical care service time. Thank you for allowing us to participate in the care of this patient. Please refer to my attending physician's documentation for any further recommendations. History of Present Illness Reason for Consultation: intubated and mechanically ventilated secondary to intentional overdose Requesting Physician: Rachel Leigh D.O Attending Physician: Rachel Leigh D.O. History of Present Illness All information in this note is limited to medical record review and discussion with admitting provider as patient is intubated and sedated without family pre sent. 28 YOF with significant psychiatric history of: Bipolar I, PTSD, Mood disorder, and medical history of: Obesity, GERD, Allergic Rhinitis, and reported learning disability. [facility] where she self reported overdose of hydroxyzine at unknown time. EMS was summoned and patient was transferred to the [facility]. She had progressive sedating effects and was intubated for reported GCS of 3. Poison control was contacted by [facility]. Current information is Hydroxyzine as the agent used, toxicology screen reveals marijuana positive- Tylenol and Salicylates negative and ETOH <10. Patient will be brought to the ICU to maintain sedation, and mechanical ventilation with likely ability to extubate in morning. Will continue with monitoring for other ingestions and monitor for seizure activity. Other current medications are Prazosin, Abilify, Doxepin, Lexapro, Hydroxyzine She has had multiple trips to another hospital [facility] through August with multiple complaints as well as depression with ingestion of possibly prazosin vs. Lexapro a that time. She had a inpatient psychiatric admission at [facility] 08/10/23 on a 201 secondary to suicidal ideations. Also through review appears that patient has also attempted cutting in the past as well. CODE: FULL Allergies Allergy/AdvReac Type Severity Reaction Status Date / Time aspirin Allergy Intermediate hives Verified 01/29/23 13:58 Home Medications Medication Instructions Recorded Confirmed Type albuterol sulfate 90 mcg/actuation 2 puff inhalation QID 11/23/22 01/29/23 History aerosol inhaler aripiprazole 5 mg tablet 5 mg PO DAILY 11/23/22 01/29/23 History melatonin 3 mg tablet 6 mg PO HS PRN Sleep 11/23/22 01/29/23 History cariprazine 3 mg capsule (Vraylar) 3 mg PO DAILY 11/26/22 01/29/23 History doxepin 50 mg capsule 50 mg PO DAILY 11/26/22 01/29/23 History prazosin 2 mg capsule 4 mg PO QPM 11/26/22 01/29/23 History sennosides 8.6 mg-docusate sodium 1 tab-cap PO BID 11/26/22 01/29/23 History 50 mg tablet (Senna with Docusate Sodium) levothyroxine 25 mcg tablet 25 mcg PO DAILY #30 tabs 12/11/22 01/29/23 Rx drospirenone 3 mg-ethinyl 1 tab PO DAILY #84 tabs 12/23/22 01/29/23 Rx estradiol 0.02 mg tablet (ALFA (28)) famotidine 20 mg tablet 20 mg PO HS #90 tabs 12/23/22 01/29/23 Rx cetirizine 10 mg tablet 10 mg PO DAILY #30 tabs 01/21/23 01/29/23 Rx fluticasone propionate 50 2 spray intranasal DAILY #16 grams 01/21/23 01/29/23 Rx mcg/actuation nasal spray,suspension (Allergy Relief (fluticasone)) amoxicillin 500 mg capsule 500 mg PO TID 01/29/23 01/29/23 History doxycycline monohydrate 100 mg 100 mg PO BID #20 tabs 01/29/23 01/29/23 Rx tablet fexofenadine 180 mg tablet 180 mg PO DAILY #30 tabs 01/29/23 01/29/23 Rx (Guerda Allergy) fluticasone propionate 50 See Rx Instructions .Route 01/29/23 01/29/23 Rx mcg/actuation nasal .COMPLEX #9.9 grams spray,suspension (Allergy Relief (fluticasone)) prednisone 20 mg tablet 40 mg (2 x 20 mg) PO DAILY 5 days 01/29/23 01/29/23 Rx #10 tabs Patient History Medical History Suicidal ideation Hemorrhoids Chronic constipation Asthma Mood disorder Bipolar 1 disorder Learning disability PTSD (post-traumatic stress disorder) Bipolar disorder Anxiety Depression Surgical History No significant past surgical history Family History Father Myocardial infarction Other No significant family history Social History Smoking Status: Unknown if ever smoked Tobacco Type: Cigarettes and E-cigarettes / Vaping Do You Dip or Chew Tobacco: No; Hx Alcohol Use: No Hx Substance Use: No Preferred Language: Chinese marital status: Single Current Living Situation: Significant Other current occupational status: disabled How many Children do You have: 0 Feels Safe at Home: Declines to Answer Gender Identity: Female Review of Systems Review of Systems: unable to obtain secondary to sedation and intubation with mechanical ventilation Physical Exam Physical Exam: PHYSICAL EXAM: General: sedated Head: Normocephalic, atraumatic ENT: PERRLA- 2 sluggish, mucous membranes moist Neuro: GCS 6T- withdraws to pain, coughs against ETT, overbreathing ventilatory Chest: equal rise and fall of the chest, no accessory muscle use, scattered rhonchi throughout LT>RT Cardiac: Regular rate and rhythm, telemetry reviewed- sinus tachycardia, skin warm dry, cap refill <3 seconds, peripheral pusles +2 no JVD, no murmur, no edema GI: NABS x 4 quadrants, soft, nontender to palpation, : bishop draining light yellow urine Skin: no rash or erythema Results & Data Results & Data Vital Signs (Past 12 Hours) Vital Signs Temp Pulse Resp BP Pulse Ox O2 Del Method O2 Flow Rate 10/07/23 23:50 109 H 20 129/95 97 Mechanical Vent 10/07/23 23:47 113 H 20 124/94 97 Mechanical Vent 10/07/23 23:40 115 H 20 125/75 96 Mechanical Vent 10/07/23 23:35 121 H 20 120/71 98 Mechanical Vent 10/07/23 23:31 130 H 20 146/113 H 96 Mechanical Vent 10/07/23 23:28 85 21 171/118 H 91 Mechanical Vent 10/07/23 23:16 116 H 18 95 Oxymask 6 10/07/23 22:02 118 H 22 96 10/07/23 22:02 118 H 22 100/82 96 10/07/23 22:00 119 H 27 H 102/75 96 10/07/23 22:00 119 H 27 H 96 10/07/23 21:50 122 H 25 H 96 10/07/23 21:45 107/82 10/07/23 21:45 126 H 24 96 10/07/23 21:43 104/88 10/07/23 21:43 125 H 21 95 10/07/23 21:40 126 H 23 97 10/07/23 21:30 140 H 18 94 10/07/23 21:25 36.9 C 121 H 26 H 102/75 96 Oxymask 5 10/07/23 21:20 136 H 19 143/114 H 95 Oxymask 5 10/07/23 21:20 136 H 19 95 10/07/23 21:19 146 H 27 H 91 10/07/23 21:19 149 H 10/07/23 21:04 Oxymask 5 FiO2 10/07/23 23:50 80 10/07/23 23:47 80 10/07/23 23:40 80 10/07/23 23:35 80 10/07/23 23:31 80 10/07/23 23:28 80 10/07/23 23:16 10/07/23 22:02 10/07/23 22:02 10/07/23 22:00 10/07/23 22:00 10/07/23 21:50 10/07/23 21:45 10/07/23 21:45 10/07/23 21:43 10/07/23 21:43 10/07/23 21:40 10/07/23 21:30 10/07/23 21:25 10/07/23 21:20 10/07/23 21:20 10/07/23 21:19 10/07/23 21:19 10/07/23 21:04 Laboratory Results Abnormal Labs 10/07/23 10/07/23 10/07/23 21:41 22:00 22:34 POC Anion Gap BUN/Creatinine Ratio 24.3 H Glucose 116 H POC Glucose 105 H POC Glucose (other) AST ALT 83 H Alkaline Phosphatase 130 H TSH 7.977 H Ur Specific [place] 1.033 H Urine Ketones Trace H Salicylates < 3.0 L Acetaminophen 3 L U Marijuana (THC) Screen Pos H 10/07/23 10/07/23 23:04 23:09 POC Anion Gap 15.0 L BUN/Creatinine Ratio Glucose POC Glucose POC Glucose (other) 132 H AST 48 H ALT Alkaline Phosphatase TSH Ur Specific [place] Urine Ketones Salicylates Acetaminophen U Marijuana (THC) Screen Diagnostic Findings Head CT 10/07/23 21:33 Exam(s): CT HEAD Without Contrast EXAM: CT Head Without Intravenous Contrast CLINICAL HISTORY: Reason for exam: ams. TECHNIQUE: Axial computed tomography images of the head/brain without intravenous contrast. CTDI is 79 mGy and DLP is 3073 mGy-cm. Automated exposure control was utilized for the study. A dose lowering technique was utilized adhering to the principles of ALARA. COMPARISON: No relevant prior studies available. FINDINGS: Limitations: Motion artifact. Brain: Unremarkable. No hemorrhage. No significant white matter disease. No edema. Cifuentes-white matter differentiation maintained. Ventricles: Unremarkable. No hydrocephalus. Bones/joints: Unremarkable. No acute fracture. Soft tissues: Unremarkable. Sinuses: Unremarkable as visualized. No acute sinusitis. Mastoid air cells: Unremarkable as visualized. No mastoid effusion. IMPRESSION: Degraded by motion. No acute intracranial process as visualized. Electronically signed by: Jeanne Davidson M.D. 10/07/23 22:40 PM Medications Administered Potassium Chloride (K Jamison / Wtr) 10 meq in 100 mls @ 100 mls/hr IV Q1H ANGELICA Stop: 10/08/23 02:14 Last Admin: 10/08/23 00:29 Dose: 100 mls/hr Documented By: Discontinued Medications Sodium Chloride (Nss) 1,000 mls @ 999 mls/hr IV .Q1H1M ANGELICA Stop: 10/07/23 22:30 Last Infusion: 10/07/23 23:54 Dose: Infused Documented By: Admin: 10/07/23 21:44 Dose: 999 mls/hr Documented By: PETER Sodium Chloride (Nss) 1,000 mls @ 999 mls/hr IV .Q1H1M ONE Stop: 10/07/23 22:32 Last Admin: 10/08/23 00:13 Dose: 999 mls/hr Documented By: Sodium Chloride (Nss) 1,000 mls @ 999 mls/hr IV .Q1H1M ONE Stop: 10/07/23 22:42 Last Admin: 10/07/23 22:22 Dose: Not Given Documented By: PETER Magnesium Sulfate/Dextrose (Magnesium Sulfate / D5w) 1 gm in 100 mls @ 100 mls/hr IV Q1H ANGELICA Stop: 10/07/23 23:44 Last Admin: 10/08/23 00:26 Dose: 100 mls/hr Documented By: Infusion: 10/07/23 23:54 Dose: Infused Documented By: Admin: 10/07/23 22:23 Dose: 100 mls/hr Documented By: PETER ECG Additional Comments: 07-OCT-2023 21:36:27- Accelerated Junctional rhythm Abnormal ECG When compared with ECG of 07-OCT-2023 21:21, (unconfirmed) Junctional rhythm has replaced Sinus rhythm- QT/QTc 410/600 ms 07-OCT-2023 21:21:01 [facility]-EDSTAT ROUTINE RETRIEVAL Sinus tachycardia with short CT Nonspecific ST and T wave abnormality Abnormal ECG No previous ECGs available- QT/QTc 356/551 m Coding Level of Care Code 44659 CRITICAL CARE 1ST 30-74M Diagnoses Intentional overdose T50.902A Bipolar 1 disorder F31.9 Mood disorder F39 Learning disability F81.9 PTSD (post-traumatic stress disorder) F43.10 Suicidal ideation R45.851
[2023-10-08] MEDS: PROPOFOL IV EMULSION 10 MG/ML 100 ML VIAL IV ONE (00:38)
[2023-10-08] MEDS ORDERED: STAT IV Infusion **Titration per Protocol STA (01:18)
[2023-10-08] MEDS ORDERED: LORazepam 2 MG in SYRINGE 1 ML IV PRN (01:18)
[2023-10-08] MEDS ORDERED: propofoL 1,000 MG/100 ML VIAL IV SCH (01:18)
[2023-10-08] MEDS: STAT IV Infusion **Titration per Protocol STA (01:25)
[2023-10-08 01:46] LABS: iSTAT Allen Test Pass; iSTAT Art Bld Gas pCO2 Correct 44 mmHg (35-46); iSTAT Art Bld Gas pH Corrected 7.335 (7.35-7.45); iSTAT Arterial Blood Gas HCO3 24 meg/L (19-24); iSTAT Arterial Blood Gas pCO2 45 mmHg (35-46); iSTAT Arterial Blood Gas pH 7.33 (7.35-7.45); iSTAT Arterial Blood Gas pO2 127 mmHg (80-95); iSTAT Arterial Blood Gas pO2 C 122; iSTAT Carbon Dioxide 25 mmol/L (24-31); iSTAT FiO2 50 %; iSTAT Hematocrit 40 % (37-47); iSTAT Hemoglobin 13.6 g/dl (12.0-16.0); iSTAT Potassium 4.1 mmol/L (3.3-5.0); iSTAT Site R Radial; iSTAT Sodium 138 mmol/L (135-144)
[2023-10-08] MEDS: LACTATED RINGER'S 1,000 ML IV SCH (01:48)
[2023-10-08] MEDS ORDERED: ALBUTEROL 0.5% NEB SOLN 2.5 MG/0.5 ML VIAL NEB PRN (03:44)
[2023-10-08 04:48] LABS: Basophils # (auto) 0.05 K/uL (0.00-0.20); Basophils % (auto) 0.5 %; Eosinophils # (auto) 0.11 K/uL (0.00-0.50); Eosinophils % (auto) 1.1 %; Hematocrit (blood only) 43.1 % (37.0-47.0); Hemoglobin 13.8 g/dl (12.0-16.0); Immature Granulocytes # (auto) 0.08 K/uL (0.01-0.20); Immature Granulocytes % (auto) 0.8 %; Lymphocytes # (auto) 1.18 K/uL (1.20-3.40); Lymphocytes % (auto) 12.2 %; Mean Corpuscular Hemoglobin 29.4 pg (25.0-34.0); Mean Corpuscular Volume 91.7 fL (80.0-100.0); Monocytes % (auto) 7.3 %; Neutrophils # (auto) 7.53 K/uL (1.40-6.50); Neutrophils % (auto) 78.1 %; Platelet Count 246 K/uL (130-400); RDW Coefficient of Variation 13.2 % (11.5-14.5); RDW Standard Deviation 44.7 fL (36.4-46.3); White Blood Count 9.65 K/ul (4.8-10.8)
[2023-10-08 05:02] LABS: Albumin Level 3.7 gm/dl (3.4-5.0); BUN Creatinine Ratio 15.9 (10-20); Bilirubin Direct 0.1 mg/dl (0-0.2); Bilirubin,Total 0.4 mg/dl (0.2-1.0); Calcium 8.2 mg/dl (8.6-10.3); Est GFR (African American) 114.5 ml/min; Est GFR (Non-African American) 98.8 ml/min; Magnesium 2.2 mg/dl (1.7-2.4); Phosphorus 2.5 mg/dl (2.5-4.9); Potassium 3.8 mmol/L (3.5-5.1)
[2023-10-08 05:10] LABS: Prothrombin Time 10.7 Seconds (9.0-12.0)
[2023-10-08] MEDS: LEVOTHYROXINE SODIUM 25 MCG TABLET NG SCH (06:13)
[2023-10-08] MEDS: PIPERACILLIN/TAZOBACTAM 4.5 GM in DEXTROSE 5% MINI-B 100 ML IV STA (06:13)
[2023-10-08] MEDS: ENOXAPARIN INJ 30 MG/0.3 ML SYR SQ SCH (06:13)
[2023-10-08] MEDS ORDERED: LEVOTHYROXINE SODIUM 25 MCG TABLET PO SCH (06:30)
--- NOTE | 2023-10-08 07:03 | XRay Report ---
SUPINE PORTABLE AP CHEST RADIOGRAPH CLINICAL HISTORY: ett placement COMPARISON STUDY: Chest radiograph October 07, 2023 at 11:25 PM FINDINGS: The endotracheal tube has been partially withdrawn. The tip is 1.5 cm above the jose. Tip of nasogastric tube is at least within the distal body of the stomach. Left lung aeration has signif icantly improved. There are persistent bilateral airspace opacities, greater within the left lung. En largement of the cardiac silhouette and mediastinal widening are probably technical. No pneumothorax or pleural effusion is identified on supine exam. IMPRESSION: 1. Tip of endotracheal tube 1.5 cm above the jose. 2. Interval improvement in left lung aeration. Persistent bilateral airspace opacities, greater withi n the left lung. ACT 112: Negative or not required by law. Electronically signed by: Jomar Corona M.D. 10/08/2023 7:01 AM
[2023-10-08] MEDS ORDERED: Nursing to Pharmacy Communication SCH (07:15)
[2023-10-08] MEDS ORDERED: ICU Protocol for HYPERglycemia SCH (07:30)
--- NOTE | 2023-10-08 07:44 | XRay Report ---
XR chest 1V portable CLINICAL HISTORY: eval ETT, OGT, and lung marie COMPARISON STUDY: Chest radiograph October 07, 2023 at 11:29 PM. FINDINGS: Tip of endotracheal tube is 2.6 cm above the jose. Tip of nasogastric tube is difficult t o visualize on this exam but at least within the stomach. No pneumothorax or pleural effusion is iden tified. Cardiac size is at upper limits of normal. Bibasilar opacities are present. IMPRESSION: 1. Tip of endotracheal tube 3.6 cm above the jose. 2. Bibasilar consolidation. This could reflect pneumonia, aspiration pneumonitis or atelectasis. ACT 112: Negative or not required by law. Electronically signed by: Jomar Corona M.D. 10/08/2023 7:43 AM
--- NOTE | 2023-10-08 07:52 | XRay Report ---
SINGLE VIEW CHEST CLINICAL HISTORY: Respiratory failure. Intubation. FINDINGS: An AP, portable, supine chest radiograph is obtained. No prior studies are available for co mparison at the time of dictation. An enteric tube has been placed. The tip projects below the diaphr agm over the stomach. An endotracheal tube has been placed. The tip projects over the right mainstem bronchus. The cardiomediastinal silhouette is obscured. There is consolidation throughout the left bird ng, as well as airspace opacities in the right upper lung, likely represent atelectasis secondary to endotracheal tube positioning. No large pleural effusion or pneumothorax is seen. The bony thorax is grossly intact. IMPRESSION: 1. Endotracheal and enteric tubes have been placed as above. 2. The endotracheal tube projects over the right mainstem bronchus. This has been repositioned on sub sequent films. 3. Consolidation throughout the left lung as well as developing airspace consolidation in the right u pper lobe likely represents atelectasis secondary to endotracheal tube positioning. Attention at foll ow-up is recommended. ACT 112: Negative or not required by law. Electronically signed by: Raghu Sanchez M.D. 10/08/2023 7:51 AM
--- NOTE | 2023-10-08 08:01 | Ultrasound Report ---
ULTRASOUND RIGHT UPPER QUADRANT ABDOMEN CLINICAL HISTORY: Elevated hepatic transaminases. Fever.. COMPARISON STUDY: Abdominal CT dated 12/09/2022. TECHNIQUE: Real-time, grayscale, and color flow sonography of the right upper quadrant of the abdomen was performed. Images are reviewed in the transverse and longitudinal planes. FINDINGS: Liver: The liver is enlarged and demonstrates heterogeneously increased echotexture indicating steato sis. There is no intrahepatic biliary ductal dilatation. The main portal vein is patent. Gallbladder: The gallbladder is normal in appearance. No gallstones are identified. There is no gallb ladder wall thickening or pericholecystic fluid. A sonographic Tineo's sign could not be assessed du e to patient condition. The common bile duct measures up to 0.3 cm in diameter. Pancreas: Visualized portions of the pancreatic head and body are normal in appearance. The splenic v ein is patent. Right kidney: Survey images of the right kidney demonstrate normal size and echotexture. There is no hydronephrosis. Ascites: None. IMPRESSION: 1. No acute sonographic abnormality is identified in the right upper quadrant. No gallstones are seen . 2. Hepatomegaly and hepatic steatosis. ACT 112: Negative or not required by law. Electronically signed by: Raghu Sanchez M.D. 10/08/2023 8:00 AM
--- NOTE | 2023-10-08 08:13 | Critical Care Progress Note ---
Date of Service October 08, 2023 Assessment & Plan (1) Intentional overdose: (2) Bipolar 1 disorder: (3) Mood disorder: (4) Learning disability: (5) PTSD (post-traumatic stress disorder): (6) Suicidal ideation: Plan Reason Critically Ill: 28 YOF with reported ingestion of Hydroxyzine- unable to confirm actual ingestion agent, amount, or time. Intubated in the EMD for increasing sedation and obtundation. Neuro - Intentional ingestion, Sedation for mechanical ventilation, hx of suicidal ideations, bipolar I, PTSD hx CAM ICU: [facility] - Continue with Propofol for sedation while intubated - Goal RASS -1 - Continue with seizure precautions as well as frequent neurological evaluations - Follow up with poison control as needed - Pych consultation appropriate after extubation - further recs regarding suicidal ideations/attempt Cardiac - Tachycardia, Prolonged QT - Likely secondary to ingestion - Continue with magnesium replacement Keep potassium greater than 4, magnesium greater than 2 and phosphorus greater than 3 - EKG q4 hours follow Qtc Respiratory - Mechanically ventilated and intubated - Secondary to toxic encephalopathy resulting in obtundation -- Aspiration pneumonia Continue with antibiotic GI - HX GERD, Elevated LFTS - Continue PPI --Transaminitis Mildly elevated AST ALT and alk phos Right upper quadrant ultrasound did not show any acute findings on 10/08/2023 RENAL/LYTES - Monitor BUNs/creatinine Avoid nephrotoxic medication - No acute needs - Continue Abrams catheter while intubated and sedated- remove once extubated ENDO - Hyperglycemia without diagnosis of DM, Hypothyroidism - Continue Synthroid - ICU hyperglycemia protocol HEME - No acute needs ID - -- Aspiration pneumonia Continue with antibiotic Nasal MRSA negative SARS-CoV-2 negative --Prophylaxis VTE: Lovenox GI: Pepcid Lines: Peripheral Diet: N.p.o. Plan: In/out: +1.9 L, urine output 700 mL Will get ABG later today. Potassium being replaced. Change Zosyn to Unasyn. QTc went down to 460 on the repeat EKG today. Follow-up poison control recommendation. Given the QTc less than 500 and QRS less than 120 no indication for bicarb drip. Given that the patient is still significantly obtunded continue with vent support Try to go down on the sedation as much as possible I have personally spent 35 minutes of critical care time in the direct management of this patient. This is a life/limb threatening event. This includes time spent evaluating patient, direct bedside care, chart review, placing orders, interpretation of diagnostic studies, discussion with consultants, patient, and family members, as well as other required patient management activities. This time is exclusive of all separately billable procedures, and teaching time and separate from and in addition to any other critical care service time. Thank you for allowing us to participate in the care of this patient. Please refer to my attending physician's documentation for any further recommendations. Admission and Anticipated Discharge Date Admission Date: October 07, 2023 Subjective Patient seen and examined at bedside. No acute distress, no adverse events overnight Patient was breathing with the vent. She was RASS -2. On propofol Making good amount of urine Review of Systems 2 Review of Systems: All systems reviewed & are unremarkable except as noted in Subjective and Unobtainable due to endotracheal tube Physical Exam 2 Physical Exam: Constitutional: No acute distress HEENT: PERRLA Respiratory system: Good air entry bilaterally, no wheeze, rhonchi, mild crackles bilateral lower lobes CVS: S1-S2 positive, no murmurs or gallops Abdomen: Soft, nontender, nondistended, positive bowel sounds x4, obese Extremities: +2 pulses bilaterally radialis/ dorsalis pedis, no cyanosis, no edema Neuro: Breathing with the vent, RASS -2 Psych: Will to assess G/U: Positive Abrams Skin: no rashes, warm and dry Lymphatic: no cervical or axillary lymphadenopathy Results & Data Results & Data Vital Signs (Past 12 Hours) Vital Signs Temp Pulse Pulse Resp BP BP Pulse Ox 10/08/23 06:00 38.1 C H 98 H 24 96 10/08/23 06:00 107/72 10/08/23 05:00 108/74 10/08/23 05:00 38.3 C H 100 H 21 98 10/08/23 04:36 94 H 25 H 99 10/08/23 04:01 124/91 10/08/23 04:01 37.5 C 91 H 24 99 10/08/23 04:00 10/08/23 03:01 36.7 C 89 24 98 10/08/23 03:01 111/74 10/08/23 02:05 94 H 10/08/23 02:01 125/95 10/08/23 02:01 36.3 C L 93 H 24 98 10/08/23 01:41 02/16/24 01:38 94 H 24 95 10/08/23 01:18 10/08/23 01:18 10/08/23 01:18 36.3 C L 98 H 20 124/86 99 10/08/23 01:18 10/08/23 01:18 124/86 10/08/23 01:18 98 H 20 99 10/08/23 00:40 104 H 32 H 130/92 98 10/08/23 00:30 106 H 42 H 128/93 98 10/08/23 00:20 108 H 24 133/90 97 10/08/23 00:10 106 H 22 131/97 97 10/08/23 00:00 109 H 26 H 127/97 97 10/07/23 23:50 109 H 20 129/95 97 10/07/23 23:47 113 H 20 124/94 97 10/07/23 23:40 115 H 20 125/75 96 10/07/23 23:35 121 H 20 120/71 98 10/07/23 23:31 130 H 20 146/113 H 96 10/07/23 23:30 110 H 20 95 10/07/23 23:28 85 21 171/118 H 91 10/07/23 23:16 116 H 18 95 10/07/23 22:02 118 H 22 96 10/07/23 22:02 118 H 22 100/82 96 10/07/23 22:00 119 H 27 H 102/75 96 10/07/23 22:00 119 H 27 H 96 10/07/23 21:50 122 H 25 H 96 10/07/23 21:45 107/82 10/07/23 21:45 126 H 24 96 10/07/23 21:43 104/88 10/07/23 21:43 125 H 21 95 10/07/23 21:40 126 H 23 97 10/07/23 21:30 140 H 18 94 10/07/23 21:25 36.9 C 121 H 26 H 102/75 96 10/07/23 21:20 136 H 19 143/114 H 95 10/07/23 21:20 136 H 19 95 10/07/23 21:19 146 H 27 H 91 10/07/23 21:19 149 H 10/07/23 21:04 Pulse Ox O2 Del Method O2 Del Method O2 Flow Rate FiO2 10/08/23 06:00 10/08/23 06:00 10/08/23 05:00 10/08/23 05:00 10/08/23 04:36 40 10/08/23 04:01 10/08/23 04:01 10/08/23 04:00 40 10/08/23 03:01 10/08/23 03:01 10/08/23 02:05 10/08/23 02:01 10/08/23 02:01 10/08/23 01:41 Mechanical Vent 10/08/23 01:38 40 10/08/23 01:18 40 10/08/23 01:18 Mechanical Vent 40 10/08/23 01:18 Mechanical Vent 40 10/08/23 01:18 97 Mechanical Vent 10/08/23 01:18 10/08/23 01:18 10/08/23 00:40 Mechanical Vent 80 10/08/23 00:30 Mechanical Vent 80 10/08/23 00:20 Mechanical Vent 80 10/08/23 00:10 Mechanical Vent 80 10/08/23 00:00 Mechanical Vent 80 10/07/23 23:50 Mechanical Vent 80 10/07/23 23:47 Mechanical Vent 80 10/07/23 23:40 Mechanical Vent 80 10/07/23 23:35 Mechanical Vent 80 10/07/23 23:31 Mechanical Vent 80 10/07/23 23:30 80 10/07/23 23:28 Mechanical Vent 80 10/07/23 23:16 Oxymask 6 10/07/23 22:02 10/07/23 22:02 10/07/23 22:00 10/07/23 22:00 10/07/23 21:50 10/07/23 21:45 10/07/23 21:45 10/07/23 21:43 10/07/23 21:43 10/07/23 21:40 10/07/23 21:30 10/07/23 21:25 Oxymask 5 10/07/23 21:20 Oxymask 5 10/07/23 21:20 10/07/23 21:19 10/07/23 21:19 10/07/23 21:04 Oxymask 5 Laboratory Results 10/08/23 04:31 10/08/23 04:31 Coding Level of Care Code 25030 CRITICAL CARE 1ST 30-74M Diagnoses Intentional overdose T50.902A Bipolar 1 disorder F31.9 Mood disorder F39 Learning disability F81.9 PTSD (post-traumatic stress disorder) F43.10 Suicidal ideation R45.851
[2023-10-08] MEDS: PANTOprazole 40 MG TAB PO SCH (08:35)
--- NOTE | 2023-10-08 11:06 | Hospitalist Progress Note ---
Date of Service October 08, 2023 Assessment & Plan (1) Intentional overdose: Plan: 28yo female presenting after intentional overdose - presumably took 10-15 tablets of hydroxyzine at 20:30. Patient intubated for airway protection in the ER as she had progressive decline of her mental status -Currently intubated, sedated and ventilated -Vent management per furniture decals inspector, pressure recommendations -Seizure precautions -Suicide precautions and Psychiatric consultation after patient is extubated -Currently on 302 (2) Bipolar 1 disorder: Plan: Chronic with severe depression -Hold home medications for now. Pharmacy to reconcile medication Psychiatry on consult (3) Asthma: Plan: Chronic. No wheezing appreciated on exam -Albuterol PRN Plan Continue to monitor, patient currently intubated ventilated and sedated Admission and Anticipated Discharge Date Admission Date: October 07, 2023 Subjective Patient seen and examined at bedside, sedated intubated and ventilated Review of Systems Review of Systems: Unable to obtain patient intubated and ventilated and sedated Physical Exam Physical Exam: The patient is intubated sedated and ventilated HEENT--PERRL, EOMI, mucous membranes and oropharynx mildly dry Neck-- No JVD. No bruits. Thyroid normal, trachea midline, no adenopathy. Heart--normal S1 and S2. No murmurs, rubs or gallops. Lungs--clear bilaterally, no respiratory distress, no accessory muscle use. Abdomen--normal bowel sounds and soft. Extremities--no cyanosis or clubbing. No edema. Dermatologic--normal skin turgor, normal color, no abnormal lymph nodes, no rash. Neurologic--unable to fully assess Rheumatologic--normal range of motion. Psychiatric--unable to assess Results & Data Results & Data Vital Signs (Past 12 Hours) Vital Signs Temp Pulse Pulse Resp BP BP Pulse Ox 10/08/23 09:00 99.7 F H 97 H 24 95 10/08/23 09:00 129/93 10/08/23 08:30 99.5 F 87 24 96 10/08/23 08:30 114/76 10/08/23 08:15 99.5 F 84 24 96 10/08/23 08:15 116/79 10/08/23 08:00 10/08/23 08:00 10/08/23 08:00 99.5 F 106 H 25 H 98 10/08/23 08:00 109/83 10/08/23 07:58 86 24 96 10/08/23 07:45 96/71 L 10/08/23 07:45 99.5 F 92 H 24 95 10/08/23 07:30 82/67 L 10/08/23 07:30 99.7 F H 93 H 24 95 10/08/23 07:01 100.2 F H 109 H 24 97 10/08/23 07:01 97/53 L 10/08/23 07:00 100.2 F H 116 H 24 96 10/08/23 06:00 100.6 F H 98 H 24 96 10/08/23 06:00 107/72 10/08/23 05:00 108/74 10/08/23 05:00 100.9 F H 100 H 21 98 10/08/23 04:36 94 H 25 H 99 10/08/23 04:01 124/91 10/08/23 04:01 99.5 F 91 H 24 99 10/08/23 04:00 10/08/23 03:01 98.1 F 89 24 98 10/08/23 03:01 111/74 10/08/23 02:05 94 H 10/08/23 02:01 125/95 10/08/23 02:01 97.3 F L 93 H 24 98 10/08/23 01:41 10/08/23 01:38 94 H 24 95 10/08/23 01:18 10/08/23 01:18 10/08/23 01:18 97.3 F L 98 H 20 124/86 99 10/08/23 01:18 10/08/23 01:18 124/86 10/08/23 01:18 98 H 20 99 10/08/23 00:40 104 H 32 H 130/92 98 10/08/23 00:30 106 H 42 H 128/93 98 10/08/23 00:20 108 H 24 133/90 97 10/08/23 00:10 106 H 22 131/97 97 10/08/23 00:00 109 H 26 H 127/97 97 10/07/23 23:50 109 H 20 129/95 97 10/07/23 23:47 113 H 20 124/94 97 10/07/23 23:40 115 H 20 125/75 96 10/07/23 23:35 121 H 20 120/71 98 10/07/23 23:31 130 H 20 146/113 H 96 10/07/23 23:30 110 H 20 95 10/07/23 23:28 85 21 171/118 H 91 10/07/23 23:16 116 H 18 95 Pulse Ox O2 Del Method O2 Del Method O2 Flow Rate FiO2 10/08/23 09:00 10/08/23 09:00 10/08/23 08:30 10/08/23 08:30 10/08/23 08:15 10/08/23 08:15 10/08/23 08:00 Mechanical Vent 40 10/08/23 08:00 40 10/08/23 08:00 10/08/23 08:00 10/08/23 07:58 40 10/08/23 07:45 10/08/23 07:45 10/08/23 07:30 10/08/23 07:30 10/08/23 07:01 10/08/23 07:01 10/08/23 07:00 10/08/23 06:00 10/08/23 06:00 10/08/23 05:00 10/08/23 05:00 10/08/23 04:36 40 10/08/23 04:01 10/08/23 04:01 10/08/23 04:00 40 10/08/23 03:01 10/08/23 03:01 10/08/23 02:05 10/08/23 02:01 10/08/23 02:01 10/08/23 01:41 Mechanical Vent 10/08/23 01:38 40 10/08/23 01:18 40 10/08/23 01:18 Mechanical Vent 40 10/08/23 01:18 Mechanical Vent 40 10/08/23 01:18 97 Mechanical Vent 10/08/23 01:18 10/08/23 01:18 10/08/23 00:40 Mechanical Vent 80 10/08/23 00:30 Mechanical Vent 80 10/08/23 00:20 Mechanical Vent 80 10/08/23 00:10 Mechanical Vent 80 10/08/23 00:00 Mechanical Vent 80 10/07/23 23:50 Mechanical Vent 80 10/07/23 23:47 Mechanical Vent 80 10/07/23 23:40 Mechanical Vent 80 10/07/23 23:35 Mechanical Vent 80 10/07/23 23:31 Mechanical Vent 80 10/07/23 23:30 80 10/07/23 23:28 Mechanical Vent 80 10/07/23 23:16 Oxymask 6 PG Care Time/CCT Total # of Minutes Spent Total Time Spent with Patient: Total time spent is greater than 50% in coordination of care (as documented) at patient's floor/unit and/or counseling patient: Coding Level of Care Code 33760 SUB INP/OBS CARE 2/35MIN Diagnoses Intentional overdose T50.902A Bipolar 1 disorder F31.9 Asthma J45.909 Time Spent (min) 35
--- NOTE | 2023-10-08 11:46 | Electrocardiogram Report ---
Test Reason : Blood Pressure : / mmHG Vent. Rate : 129 BPM Atrial Rate : 000 BPM P-R Int : 000 ms QRS Dur : 088 ms QT Int : 410 ms P-R-T Axes : 000 030 063 degrees QTc Int : 600 ms Sinus tachycardia Nonspecific ST and T wave abnormality Abnormal ECG When compared with ECG of 07-OCT-2023 21:21, (unconfirmed) No significant change Confirmed by Cj Martines ([id number]) on 10/08/2023 11:46:08 AM Referred By: REFERRED SELF Confirmed By:Cj Martines
--- NOTE | 2023-10-08 11:46 | Electrocardiogram Report ---
Test Reason : Blood Pressure : / mmHG Vent. Rate : 144 BPM Atrial Rate : 144 BPM P-R Int : 104 ms QRS Dur : 086 ms QT Int : 356 ms P-R-T Axes : 000 021 056 degrees QTc Int : 551 ms Sinus tachycardia with short MO Nonspecific ST and T wave abnormality Abnormal ECG No previous ECGs available Confirmed by Cj Martines ([id number]) on 10/08/2023 11:45:26 AM Referred By: REFERRED SELF Confirmed By:Cj Martines
--- NOTE | 2023-10-08 11:48 | Electrocardiogram Report ---
Test Reason : Blood Pressure : / mmHG Vent. Rate : 097 BPM Atrial Rate : 097 BPM P-R Int : 156 ms QRS Dur : 082 ms QT Int : 392 ms P-R-T Axes : 049 026 063 degrees QTc Int : 497 ms Normal sinus rhythm Prolonged QT Abnormal ECG When compared with ECG of 07-OCT-2023 21:36, (unconfirmed) Sinus rhythm has replaced Junctional rhythm Confirmed by Cj Martines ([id number]) on 10/08/2023 11:48:09 AM Referred By: REFERRED SELF Confirmed By:Cj Martines
--- NOTE | 2023-10-08 11:48 | Electrocardiogram Report ---
Test Reason : Blood Pressure : / mmHG Vent. Rate : 097 BPM Atrial Rate : 097 BPM P-R Int : 146 ms QRS Dur : 072 ms QT Int : 378 ms P-R-T Axes : 041 025 053 degrees QTc Int : 480 ms Normal sinus rhythm Prolonged QT Abnormal ECG When compared with ECG of 08-OCT-2023 01:17, (unconfirmed) No significant change was found Confirmed by Cj Martines ([id number]) on 10/08/2023 11:48:32 AM Referred By: REFERRED SELF Confirmed By:Cj Martines
--- OUTSIDE RECORDS SUMMARY | 2023-10-08 11:53 | External Medical Summary ---
Author Name Unknown Address Unknown Organization [email or web address]:[facility] - [address] [id number] Laboratory Report Ordering Provider Test Date Status DORON GAO 09/14/2023 22:38:00 Final Observation Date Value Abnormality Reference (Units ) Status Ethanol 09/14/2023 22:38:00 Negative Negative Final Performing Location [facility] - [address] [place] [id number]
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
--- OUTSIDE RECORDS SUMMARY | 2023-10-08 11:53 | External Medical Summary ---
Author Name Unknown Address Unknown Organization K1F:LABORATORY [facility] - [address] [place] [address] Laboratory Report Ordering Provider Test Date Status CRISTA HALL 10/01/2023 23:12:33 Final Observation Date Value Abnormality Reference (Units ) Status Salicylates 10/01/2023 23:12:33 <0.3 Below low normal 5 .0-30.0 (mg/dL) Final Performing Location LABORATORY [facility] - [address] [place] [address]
--- OUTSIDE RECORDS SUMMARY | 2023-10-08 11:53 | External Medical Summary | Summary of Care ---
Author Name Unknown Organization [facility] Address [address] [place] [address] Phone [phone] Care Team Providers Care Client Solutions Specialist Name Role Phone Olinda Wang DO Primary Care Provider + Reason for Visit * Reason Comments Psychological Evaluation * Auth/Cert Specialty Diagnoses / Procedures Referred By Jordyn t Referred To Contact Referral ID Status Reason Start Date Expiration Date Visits Re quested Visits Authorized [id number] Encounter Details Date Type Department Care Team ([facility] st Contact Info) Description 09/14/2023 10:15 PM EST - 09/15/2023 1:11 PM EST Emergency [facility] Emergency Department ([facility]) [address] [place] [address] Denis Pablo MD [address] [place] [address] Jorgito Flores MD [address] [place] [address] Depressed mood (Primary Dx); Suicidal ideations; Auditory hallucinations [facility] Allergies Active Allergy Reactions Criticality Noted Date Comments Aspirin Hives 11/18/2018 Apparently her mother told her she is allergic to it documented as of this encounter (statuses as of 09/16/2023) Medications Medication Sig Dispensed Refills Start Date [...] the morning. 30 Tablet 0 08/13/2023 Active documented as of this encounter (statuses as of 09/16/2023) Active Problems Problem Noted Date Diagnosed Date [...] as of this encounter (statuses as of 09/16/2023) Resolved Problems Problem Noted Date Diagnosed Date Resolved Date Bipolar affective disorder, currently depressed, moderate 08/11/2023 08/13/2023 Food insecurity 03/31/2021 12/04/2021 Overview: Per [facility] Protocol Adenotonsillitis, acute 10/28/202010/23 Tonsillar abscess 10/28/2020 11/19/2021 Nonintractable epilepsy with out status epilepticus 12/20/2018 11/19/2021 Body mass index (BMI) of 40. 0 to 44.9 in adult 12/19/2018 06/05/2021 Overview: Per Obesity protocol - ICD-10 update of inactive term Obesity, BMI not known 11/24/201801/04 documented as of this encounter (statuses as of 09/16/2023) Immunizations Name Administration Dates Next Due HPV [...] Used Date Smoking Tobacco: Every Day Cigarettes 0.5 Started: 2009 Smokeless Tobacco: Never Comments:rare cigarettes [...] Sign Reading Time Taken Comments Blood Pressure 137/92 09/15/2023 10:44 AM EST Pulse 89 09/15/2023 10:44 AM EST Temperature 36 C (96.8 F) 09/14/2023 10:16 PM EST Respiratory Rate 20 09/15/2023 10:44 AM EST Oxygen Saturation 95% 09/14/2023 10:16 PM EST Inhaled Oxygen Concentration - - Weight 127 kg (280 lb) 09/14/2023 10:16 PM EST Height 160 cm (5' 3") 09/14/2023 10:16 PM EST Body Mass Index 49.6 09/14/2023 10:16 PM EST documented in this encounter Functional [...] No 10/28/2020 documented as of this encounter Procedure Notes * Esteban Gallego DO - 09/14/2023 10:50 PM ESTAssociated Order(s): EKG REASON FOR STUDY: PSYCH CONCLUSIONS: Normal sinus rhythm Normal ECG When compared with ECG of 14-SEP-2023 15:45, No significant change was found Ventricular Rate: 78 Atrial Rate: 78 OH Interval: 154 QRS Duration: 84 QT/QTc: 406/462 ms P-R-T [place]: 53 : 34 : 34 degrees documented in this encounter ED Notes * Jorgito Flores MD - 09/15/2023 1:11 PM EST Transfer of care: Patient here for suicidal ideation, recent suicide attempt by overdose. Two hundred one signed. Patient awaiting transport to psychiatric facility. Jorgito Flores MD Emergency Medicine, [facility] Patient remained stable while in the ER, and was transferred out in stable condition by [facility]. Jorgito Flores MD Emergency Medicine, [facility] * Gael Benedict RN - 09/14/2023 10:20 PM EST Pt presents to ED with SI and no HI. Pt has hx of this and was seen this morning for SI. Pt states she has a plan and it is to swallow pills which she states she attempted last night with lexapro. VSS documented in this encounter Miscellaneous Notes * ED Quality Analyst/Technical Writer Note - Linda Frank RN - 09/15/2023 7:22 AM EST 0720 Assumed care of pt. 0730 pt resting in bed with no apparent distress. Resp unlabored. Eyes closed. Pt quiet. Will monitor. Call mendez at bedside. Direct observation being performed. 0800 Pt resting in bed with no apparent distress. resp unlabored. Call mendez in reach. Will monitor.Eyes closed. Direct observation being performed. 0833 pt sitting on side of bed eating breakfast. No apparent distress. Resp unlabored. Call mendez atbedside. Will monitor. Aware of plan of care. Direct observation being performed. 0900 Pt resting in bed with no apparent distress. resp unlabored. Call mendez in reach. Will monitor.Pt quiet and calm. Direct observation being performed. 1000 Pt resting in bed with no apparent distress. resp unlabored. Call mendez in reach. Will monitor.Pt quiet and calm. Direct observation being performed. 1045 Pt resting in bed with no apparent distress. resp unlabored. Call mendez in reach. Will monitor.Direct observation being performed. 1130 Pt resting in bed with no apparent distress. resp unlabored. Call mendez in reach. Will monitor.Medicated per oct. Direct observation being performed. 1230 Pt resting in bed with no apparent distress. resp unlabored. Call mendez in reach. Will monitor.Direct observation being performed. 1308 transport to ED for pt. Pt given belongings and left ED with transport. Attempted to call report to [facility]. Message left with [employer]. * ED Quality Analyst/Technical Writer Note - Gael Benedict RN - 09/15/2023 5:34 AM EST Pt sleeping comfortably in bed with sitter at bedside. * ED Quality Analyst/Technical Writer Note - Des Ny, RN - 09/15/2023 5:13 AM EST Paperwork faxed to Anatoliy Dent, and Jose Angel Thrasher. documented in this encounter Plan of Treatment [...] Procedure Name Priority Date/Time Associated Diagnosis Comments HC ECG TRACING ONLY STAT 09/14/2023 1 0:50 PM EST DIFFERENTIAL, AUTOMATED STAT 09/14/2023 10:38 PM EST BETA-HCG, QUANTITATIVE STAT 4 10:38 PM EST COMPREHENSIVE METABOLIC PANEL STAT 09/14/2023 10:38 PM EST CBC STAT 09/14/2023 10:38 PM EST ETHANOL, MEDICAL STAT 09/14/2023 10:3 8 PM EST CBC STAT 09/14/2023 10:38 PM EST ACETAMINOPHEN LEVEL STAT 09/14/2023 1 0:38 PM EST SALICYLATES LEVEL STAT 09/14/2023 10: 38 PM EST TOXICOLOGY, URINESCREEN W/O CONFIRMATION STAT 09/14/2023 10:26 PM EST documented in this encounter Results * EKG (09/14/2023 10:50 PM EST) 09/14/2023 10:5 0 PM EST Narrative Procedure Note Esteban Gallego DO - 09/14/2023 10:50 PM EST REASON FOR STUDY: PSYCH CONCLUSIONS: Normal sinus rhythm Normal ECG When compared with ECG of 14-SEP-2023 15:45, No significant change was found Ventricular Rate: 78 Atrial Rate: 78 OH Interval: 154 QRS Duration: 84 QT/QTc: 406/462 ms P-R-T [place]: 53 : 34 : 34 degrees Jame Mckeon DO EKG [facility] CARDIOLOGY * DIFFERENTIAL, AUTOMATED (09/14/2023 10:38 PM EST) WBC 8.70 4.00 - 10.80 K/uL 09/14/2023 10:43 PM EST LAB[facility]ATORY [facility] Neutrophils % 57.2 40.0 - 75.0 % 09/14/2023 10:43 PM EST LAB[facility]ORY [facility] Lymphocytes % 33.4 18.0 - 42.0 % 09/14/2023 10:43 PM EST LAB[facility] Monocytes % 6.8 1.0 - 11.0 % 09/14/2023 10:43 PM EST LAB[facility] Eosinophils % 1.8 0.0 - 6.0 % 09/14/2023 10:43 PM EST LAB[facility] Basophils % 0.5 0.0 - 2.0 % 09/14/2023 10:43 PM EST LAB[facility] Immature Granulocytes % 0.3 0.0 - 2.0 % 09/14/2023 10:43 PM EST LABORATORY [facility] Absolute Neutrophils 4.97 1.80 - 7.70 K/uL 09/14/2023 10:43 PM EST LAB[facility] Absolute Lymphocytes 2.91 1.00 - 4.80 K/ul 09/14/2023 10:43 PM EST LABORATORY GL Absolute Monocytes 0.59 0.00 - 1.10 K/uL 09/14/2023 10:43 PM EST LABORATORY GL Absolute Eosinophils 0.16 0.00 - 0.70 K/uL 09/14/2023 10:43 PM EST LABORATORY GL Absolute Basophils 0.04 0.00 - 0.20 K/uL 09/14/2023 10:43 PM EST LABORATORY GL Absolute Immature Granulocytes 0.03 0.00 - 0.20 K/uL 09/14/2023 10:43 PM EST LAB[facility] Blood Venous blood specimen / Unknown Venipuncture / Unknown 09/14/2023 10:38 PM EST 09/14/2023 10:41 PM EST Jame Mckeon DO LAB BLOOD [place] [facility] Organization Address City/State/[facility] Co de Phone Number LABORATORY [address] [address] * CBC (09/14/2023 10:38 PM EST) [facility] WBC 8.70 4.00 - 10.80 K/uL 09/14/2023 10:43 PM EST LABORATORY [facility] RBC 4.68 3.85 - 5.15 M/uL 09/14/2023 10:43 PM EST LABORATORY GL HGB 14.1 12.0 - 15.3 g/dL 09/14/2023 10:43 PM EST LABORATORY GL HCT 43.0 36.0 - 45.2 % 09/14/2023 10:43 PM EST LABORATORY [facility] MCV 91.9 81.5 - 97.5 fL 09/14/2023 10:43 PM EST LABORATORY [facility] MCH 30.1 27.0 - 34.0 pg 09/14/2023 10:43 PM EST LABORATORY [facility] MCHC 32.8 32.0 - 36.0 g/dL 09/14/2023 10:43 PM EST LABORATORY [facility] RDW 13.1 11.5 - 15.5 % 09/14/2023 10:43 PM EST LABORATORY [facility] PLT 287 140 - 400 K/uL 09/14/2023 10:43 PM EST LABORATORY [facility] MPV 8.9 6.6 - 11.1 fL 09/14/2023 10:43 PM EST LABORATORY [facility] nRBCs 0 <=0 /100 WBCs 09/14/2023 10:43 PM EST LABORATORY [facility] Blood Venous blood specimen / Unknown Venipuncture / Unknown 09/14/2023 10:38 PM EST 09/14/2023 10:41 PM EST Jame Mckeon [facility] BLOOD [place] LABORATORY [facility] [address] [place] [address] * BETA-HCG, QUANTITATIVE (09/14/2023 10:38 PM EST) Pathologist [facility] Beta-HCG, Quantitative 0.2 <=1.0 mIU/mL 09/14/2023 11:12 PM EST LABORATORY [facility] Blood Venous blood specimen / Unknown Venipuncture / Unknown 09/14/2023 10:38 PM EST 09/14/2023 10:41 PM EST Narrative LABORATORY [facility] - 09/14/2023 11:12 PM EST hCG can serve as a screening assay for . However, early may not give a positive hCG test result. In addition, some non- women may have a hCG result slightly higher than the reference limit. Careful interpretation of the hCG with clinical history is required to determine whether the patient may be . Jame Mckeon LAB BLOOD [place] Performing Organization Address City/[facility] Co de Phone Number LABORATORY [address] [phone] * (ABNORMAL) SALICYLATES LEVEL (09/14/2023 10:38 PM EST) Salicylates Level <0.3(L) 5.0 - 30.0 mg/dL 09/14/2023 11:13 PM EST LABORATORY [facility] Blood Venous blood specimen / Unknown Venipuncture / Unknown 09/14/2023 10:38 PM EST 09/14/2023 10:41 PM EST Jame Mckeon [facility] BLOOD [place] Performing Organization Address [facility] Co de Phone Number LABORATORY [address] [address] * (ABNORMAL) ACETAMINOPHEN LEVEL (09/14/2023 10:38 PM EST) Acetaminophen Level <5.0(L) 10.0 - 30.0 ug/mL 09/14/2023 11:13 PM EST LABORATORY [facility] Blood Venous blood specimen / Unknown Venipuncture / Unknown 09/14/2023 10:38 PM EST 09/14/2023 10:41 PM EST Jame Mckeon [facility] BLOOD [place] Performing Organization Address [facility]/ZIP Co de Phone Number LABORATORY [address] [address] * (ABNORMAL) COMPREHENSIVE METABOLIC PANEL (09/14/2023 10:38 PM EST) BUN 13 6 - 20 mg/dL 09/15/2023 12:36 AM EST LABORATORY GL Creatinine 0.8 0.5 - 1.0 mg/dL 09/15/2023 12:36 AM EST LABORATORY GL Estimated Glomerular Filtration Rate >90 >=60 mL/min 09/15/2023 12:36 AM EST LABORATORY GL Comment:eGFR is calculated b ased on the CKD-EPI 2020 equation Sodium 142 135 - 146 mmol/L 09/15/2023 12:36 AM EST LAB[facility]ORY [facility] Potassium 4.1 3.5 - 5.1 mmol/L 09/15/2023 12:36 AM EST LAB[facility] Chloride 106 98 - 107 mmol/L 09/15/2023 12:36 AM EST LAB[facility] CO2 26 22 - 32 mmol/L 09/15/2023 12:36 AM EST LAB[facility]ORY [facility] Anion Gap 10 7 - 15 mmol/L 09/15/2023 12:36 AM EST LAB[facility]ORY [facility] Glucose 102 70 - 120 mg/dL 09/15/2023 12:36 AM EST LAB[facility] Albumin 3.7(L) 3.8 - 5.0 g/dL 09/15/2023 12:36 AM EST LAB[facility]ORY [facility] AST 48(H) 10 - 35 U/L 09/15/2023 12:36 AM EST LAB[facility]ORY [facility] Alkaline Phosphatase 157(H) 35 - 130 U/L 09/15/2023 12:36 AM EST LAB[facility]ORY [facility] Comment:This is an appended report. These results have been appended to a previously preliminary verified report. Bilirubin, Total 0.2 <=1.2 mg/dL 09/15/2023 12:36 AM EST LAB[facility]ATORY [facility] Calcium 8.9 8.4 - 10.2 mg/dL 09/15/2023 12:36 AM EST LAB[facility] Protein 7.1 6.0 - 8.3 g/dL 09/15/2023 12:36 AM EST LAB[facility]ORY [facility] ALT 95(H) 10 - 35 U/L 09/15/2023 12:36 AM EST [facility] Blood Venous blood specimen / Unknown Venipuncture / Unknown 09/14/2023 10:38 PM EST 09/14/2023 10:41 PM EST Jame Mckeon DO LAB BLOOD [place] LABORATORY [address] [address] * ETHANOL, MEDICAL (09/14/2023 10:38 PM EST) ETHANOL, MEDICAL Negative Negative 09/14/2023 11:13 PM EST LABORATORY GL Blood Venous blood specimen / Unknown Venipuncture / Unknown 09/14/2023 10:38 PM EST 09/14/2023 10:41 PM EST Jame Mckeon LAB BLOOD [place] LABORATORY [address] [address] * TOXICOLOGY, URINESCREEN W/O CONFIRMATION (09/14/2023 10:26 PM EST) [facility] Amphetamines Screen, U Negative Negative 09/14/2023 10:52 PM EST LABORATORY [facility] Benzodiazepines Screen, U Negative Negative 09/14/2023 10:52 PM EST LABORATORY [facility] Cannabinoids Screen, U Negative Negative 09/14/2023 10:52 PM EST LABORATORY [facility] Cocaine Metabolite Screen, U Negative Negative 09/14/2023 10:52 PM EST LABORATORY [facility] Fentanyl Screen, U Negative Negative 2023 10:52 PM EST LABORATORY [facility] Hydrocodone Screen, U Negative Negative 09/14/2023 10:52 PM EST LABORATORY [facility] Methadone Metabolite Screen, U Negative Negative 09/14/2023 10:52 PM EST LABORATORY [facility] Morphine/Codeine Screen, U Negative Negative 09/14/2023 10:52 PM EST LABORATORY [facility] Oxycodone Screen, U Negative Negative 09/14 10:52 PM EST LABORATORY [facility] Urine Urine specimen obtained by clean catch procedure / Unknown Non-blood Collection / Unknown 09/14/2023 10:26 PM EST 09/14/2023 10:29 PM EST Narrative LABORATORY [facility] - 09/14/2023 10:52 PM EST Cutoff Concentrations: Drug Level Amphetamines 500 ng/mL Benzodiazepines 100 ng/mL Cannabinoids 50 ng/mL Cocaine Metabolite 150 ng/mL Fentanyl 1 ng/mL Hydrocodone / Hydromorphone 300 ng/mL Methadone Metabolite 100 ng/mL Morphine / Codeine 300 ng/mL Oxycodone / Oxymorphone 100 ng/mL Screening results are presumptive and can only be used for medical purposes. Confirmatory testing is available upon request. Jame Mckeon LAB URINE [place] [facility] Organization Address City/State/ZIP Co de Phone Number LABORATORY [facility] [address] [place] [address] documented in this encounter Visit Diagnoses Diagnosis Depressed mood- Primary Suicidal ideations Suicidal ideation Auditory hallucinations Hallucinations documented in this encounter Administered Medications Inactive Administered Medications - up to 3 most recent administrations Medication Order MAR Action Action Date Dose Rate Site Escitalopram Oxalate (Lexapro) 5 mg tab 5 mg, Oral, ONCE, On Wed09/15/23 at 0930, For 1 dose Given 09/15/2023 11:35 AM EST 5 mg documented in this encounter Active and Recently Administered Medications Times are shown in EST. Scheduled Medication Order 09/13/2023 09/14/2023 09/15/2023 Escitalopram Oxalate (Lexapro) 5 mg tab (COMPLETED) 5 mg, Oral, ONCE, On Wed09/15/23 at 0930, For 1 dose 1135 (Given - Provid er: Linda Frank RN) documented in this encounter Advance Directives [...] the patient have Health Care Power of Sex Crimes Detective? No Code Status History Code Status Date Activated Date Inactivated Comments Full Code 06/04/2022 12:26 AM 06/17/2022 2:39 PM Th is order reflects the patients wishes and were consensually agreed upon. Question Answer Comments Discussion of Advance Directives occurred with: Patient Does the patient have a Living Will? No Does the patient have Health Care Power of Sex Crimes Detective? No Full Code 05/02/2022 11:32 PM 05/09/2022 1:15 PM This order reflects the patients wishes and were consensually agreed upon. Question Answer Comments Discussion of Advance Directives occurred with: Patient Does the patient have a Living Will? No Does the patient have Health Care Power of Sex Crimes Detective? No Full Code 03/05/2022 5:38 AM 03/09/2022 4:16 PM This order reflects the patients wishes and were consensually agreed upon. Question Answer Comments Discussion of Advance Directives occurred with: Patient Does the patient have a Living Will? No Does the patient have Health Care Power of Sex Crimes Detective? No Full Code 01/23/2022 1:50 AM 02/03/2022 5:03 PM This o rder reflects the patients wishes and were consensually agreed upon. Question Answer Comments Discussion of Advance Directives occurred with: Patient Does the patient have a Living Will? No Does the patient have Health Care Power of Sex Crimes Detective? No Care Teams Client Solutions Specialist Relationship Specialty Start Date End Date Olinda Wang DO [address], [place] [phone] PCP - General Family Medicine 08/09/23 documented as of this encounter
--- OUTSIDE RECORDS SUMMARY | 2023-10-08 11:53 | External Medical Summary ---
Author Name Unknown Address Unknown Organization K1F:LABORATORY [facility] - [address] [facility]. [facility] [address] Laboratory Report Ordering Provider Test Date Status JAJA GAOTRISTON 09/14/2023 22:38:00 Final Observation Date Value Abnormality Reference (Units ) Status SYNC LEUKOCYTES IN BLOOD BY AUTOMATED COUNT 09/14/2023 22:38:00 8.70 4.00-10.80 (K/uL) Final Segs 09/14/2023 22:38:00 57.2 40.0-75.0 (%) Final Lymphs % 09/14/2023 22:38:00 33.4 18.0-42.0 (%) Final Monos 09/14/2023 22:38:00 6.8 1.0-11.0 (%) Final Eosinophils 09/14/2023 22:38:00 1.8 0.0-6.0 (%) Final Basos 09/14/2023 22:38:00 0.5 0.0-2.0 (%) Final Immature Granulocyte, Percent 09/14/2023 22:38:00 0.3 0.0-2.0 (%) Final Absolute Segs 09/14/2023 22:38:00 4.97 1.80-7.70 (K/uL) Final Lymphs, absolute 09/14/2023 22:38:00 2.91 1.00-4.80 (K/ul) Final Monos, Abs 09/14/2023 22:38:00 0.59 0.00-1.10 (K/uL) Final Eos, Abs 09/14/2023 22:38:00 0.16 0.00-0.70 (K/uL) Final Basos, Abs 09/14/2023 22:38:00 0.04 0.00-0.20 (K/uL) Final Immature Granulocytes, Number 09/14/2023 22:38:00 0.03 0.00-0.20 (K/uL) Final Performing Location LABORATORY [facility] - [address] [place] [address]
--- OUTSIDE RECORDS SUMMARY | 2023-10-08 11:53 | External Medical Summary ---
Author Name Unknown Address Unknown Organization K1F:LABORATORY [facility] - [address] [place] [address] Laboratory Report Ordering Provider Test Date Status IZABELAKEHINDE 10/06/2023 16:08:24 Final Observation Date Value Abnormality Reference (Units ) Status RBC, Urine 10/06/2023 16:08:24 6-9 Abnormal 0-2 (/HPF) Final WBC, Urine 10/06/2023 16:08:24 0-2 0-2 (/HPF) Final Bacteria [#/area] in Urine sediment by Microscopy high power field 10/06/2023 16:08:24 0-25 0-25 (/HPF) Final Performing Location LABORATORY [facility] - [address] [place] [address]
--- OUTSIDE RECORDS SUMMARY | 2023-10-08 11:53 | External Medical Summary ---
Author Name Unknown Address Unknown Organization K1F:LABORATORY [facility] - [address] [place] [address] Laboratory Report Ordering Provider Test Date Status CRISTA HALL 10/01/2023 23:12:33 Final Observation Date Value Abnormality Reference (Units ) Status Ethanol 10/01/2023 23:12:33 Negative Negative Final Performing Location [facility] [address] [place] [address]
--- OUTSIDE RECORDS SUMMARY | 2023-10-08 11:53 | External Medical Summary | Summary of Care ---
Author Name Unknown Organization [facility] Address [address] [place] [address] Phone [phone] Care Team Providers Care Network Systems Administrator Name Role Phone Olinda Wang DO Primary Care Provider + Encounter Details Date Type Department Care Team (Late st Contact Info) Description 09/29/2023 Orders Only Access Center, [place] [address] *DO NOT REMOVE THIS DEPARTMENT* [place] [address] Requisition, External Cardiology [address] [place] [address] Encounter for long-term (current) use of medications* Allergies Active Allergy Reactions Criticality Noted Date Comments Aspirin Hives 11/18/2018 Apparently her mother told her she is allergic to it documented as of this encounter (statuses as of 09/29/2023) Medications Medication Sig Dispensed Refills Start Date [...] as of this encounter (statuses as of 09/29/2023) Active Problems Problem Noted Date Diagnosed Date [...] as of this encounter (statuses as of 09/29/2023) Resolved Problems Problem Noted Date Diagnosed Date [...] as of this encounter (statuses as of 09/29/2023) Immunizations Name Administration Dates Next Due HPV [...] on file documented as of this encounter Functional Status Functional Status Response [...] No 10/28/2020 documented as of this encounter Plan of Treatment Scheduled Orders Name Type Priority Associated Diagnoses Orde r Schedule EKG EKG Routine Encounter for long-term (current) use of medications Expected: 09/29/2023 (Approximate), Expires: 09/29/2024 Scheduled Procedures Name Priority Associated Diagnoses Date/Ti [...] Not on filedocumented as of this encounter Visit Diagnoses Diagnosis Encounter for long-term (current) use of medications- Primary Encounter for long-term (current) use of other medications documented in this encounter Advance Directives Latest [...] the patient have Health Care Power of Pie Bakery Laborer? No Code Status History Code Status Date Activated Date Inactivated Comments Full Code 06/04/2022 12:26 AM 06/17/2022 2:39 PM Th is order reflects the patients wishes and were consensually agreed upon. Question Answer Comments Discussion of Advance Directives occurred with: Patient Does the patient have a Living Will? No Does the patient have Health Care Power of Pie Bak[employer] Laborer? No Full Code 05/02/2022 11:32 PM 05/09/2022 1:15 PM This order reflects the patients wishes and were consensually agreed upon. Question Answer Comments Discussion of Advance Directives occurred with: Patient Does the patient have a Living Will? No Does the patient have Health Care Power of Pie Bakery Laborer? No Full Code 03/05/2022 5:38 AM 03/09/2022 4:16 PM This order reflects the patients wishes and were consensually agreed upon. Question Answer Comments Discussion of Advance Directives occurred with: Patient Does the patient have a Living Will? No Does the patient have Health Care Power of Pie Bak[employer] Laborer? No Full Code 01/23/2022 1:50 AM 02/03/2022 5:03 PM This o rder reflects the patients wishes and were consensually agreed upon. Question Answer Comments Discussion of Advance Directives occurred with: Patient Does the patient have a Living Will? No Does the patient have Health Care Power of Pie Bak[employer] Laborer? No Care Teams Network Systems Administrator Relationship Specialty Start Date End Date Olinda Wang DO [address] [place] [address] PCP - General Family Medicine 08/09/23 documented as of this encounter
--- OUTSIDE RECORDS SUMMARY | 2023-10-08 11:53 | External Medical Summary ---
Author Name Unknown Address Unknown Organization K1F:LABORATORY [facility] - [address] [place] [address] Laboratory Report Ordering Provider Test Date Status CRISTA HALL 10/01/2023 23:12:33 Final Observation Date Value Abnormality Reference (Units ) Status WBC, Total 10/01/2023 23:12:33 10.97 Above high normal 4.00-10.80 (K/uL) Final RBC 10/01/2023 23:12:33 4.69 3.85-5.15 (M/uL) Final Hemoglobin 10/01/2023 23:12:33 14.2 12.0-15.3 (g/dL) Final HCT 10/01/2023 23:12:33 43.4 36.0-45.2 (%) Final MCV 10/01/2023 23:12:33 92.5 81.5-97.5 (fL) Final MCH 10/01/2023 23:12:33 30.3 27.0-34.0 (pg) Final MCHC 10/01/2023 23:12:33 32.7 32.0-36.0 (g/dL) Final RDW 10/01/2023 23:12:33 13.2 11.5-15.5 (%) Final Platelets 10/01/2023 23:12:33 298 140-400 (K/uL) Final MPV 10/01/2023 23:12:33 8.9 6.6-11.1 (fL) Final Nucleated erythrocytes/100 leukocytes [Ratio] in Blood by Automated count 10/01/2023 23:12:33 0 <=0 (/100 WBCs) Final Performing Location LABORATORY [facility] - [address] [place] [address]
--- OUTSIDE RECORDS SUMMARY | 2023-10-08 11:53 | External Medical Summary | Summary of Care ---
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 presumptive and can only be used for medical purposes. Confirmatory testing is available upon request. Deanne Contreras PA-C LAB URINE ORDERABLE S [facility] [address] [place] [address] * ETHANOL, MEDICAL (09/14/2023 1:47 PM EST) ETHANOL, MEDICAL Negative Negative 09/14/2023 2:39 PM EST [facility] Blood Venous blood specimen / Unknown Venipuncture / Unknown 09/14/2023 1:47 PM EST 09/14/2023 1:57 PM EST Deanne Contreras PA-C LAB BLOOD ORDERABLE S [facility] [address] [facility] [place] [address] * (ABNORMAL) COMPREHENSIVE METABOLIC PANEL (09/14/2023 1:47 PM EST) BUN 10 6 - 20 mg/dL 09/14/2023 2:39 PM EST [facility] Creatinine 0.6 0.5 - 1.0 mg/dL 09/14/2023 2:39 PM EST [facility] Estimated Glomerular Filtration Rate >90 >=60 mL/min 09/14/2023 2:39 PM EST [facility] Comment:eGFR is calculated b ased on the CKD-EPI 2020 equation Sodium 136 135 - 146 mmol/L 09/14/2023 2:39 PM EST [facility] Potassium 3.7 3.5 - 5.1 mmol/L 09/14/2023 2:39 PM EST [facility] Chloride 101 98 - 107 mmol/L 09/14/2023 2:39 PM EST [facility] CO2 23 22 - 32 mmol/L 09/14/2023 2:39 PM EST [facility] Anion Gap 12 7 - 15 mmol/L 09/14/2023 2:39 PM EST [facility] Glucose 86 70 - 120 mg/dL 09/14/2023 2:39 PM EST [facility] Albumin 4.0 3.8 - 5.0 g/dL 09/14/2023 2:39 PM EST [facility] AST 68(H) 10 - 35 U/L 09/14/2023 2:39 PM EST [facility] Alkaline Phosphatase 174(H) 35 - 130 U/L 09/14/2023 2:39 PM EST [facility] Bilirubin, Total 0.3 <=1.2 mg/dL 09/14/2023 2:39 PM EST [facility] Calcium 8.8 8.4 - 10.2 mg/dL 09/14/2023 2:39 PM EST [facility] Protein 7.5 6.0 - 8.3 g/dL 09/14/2023 2:39 PM EST [facility] ALT 113(H) 10 - 35 U/L 09/14/2023 2:39 PM EST [facility] Blood Venous blood specimen / Unknown Venipuncture / Unknown 09/14/2023 1:47 PM EST 09/14/2023 1:57 PM EST Deanne Contreras PA-C LAB BLOOD ORDERABLE S LABOR[facility] [address] [address] * INFLUENZA A/B RSV SARS-COV2,PCR (09/14/2023 1:32 PM EST) SARS-CoV-2 (COVID-19) Result Negative Negative 09/14/2023 3:08 PM EST [facility] Comment: No SARS-CoV2 Coronavirus RNA detected by PCR (amplified probe). This express test was developed and its performance characteristics determined by [employer] [facility]. It has not been cleared or approved by the U.S. Food and Drug Administration (FDA). FDA does not require this test to go thru premarket FDA review. This test is used for clinical purposes. It should not be regarded as investigational or for research. This laboratory is certified under the Clinical Laboratory Improvement Amendments (CLIA) as qualified to perform high complexity clinical laboratory testing. This test is a nucleic acid amplification test (NAAT), a reverse transcriptase polymerase chain reaction (RT-PCR) test, or a Centers for Disease Control- acceptable equivalent. The test is performed in a high complexity Clinical Laboratory Improvement Amendments-(CLIA) certified laboratory. The test is acceptable for SARS-CoV-2 diagnosis, surveillance, and travel within the [place] and to most countries. Please check with local testing authorities about requirements before travel. The validation of bronchial specimens, tracheal aspirates, and sputum for this assay was developed and performance characteristics determined by [employer] [facility]. The validation of alternate specimen types has not been cleared or approved by the U.S. Food and Drug Administration (FDA). It has been determined that such clearance is not necessary. Influenza A PCR Result Negative Negative 09/14/2023 3:08 PM EST [facility] Comment:No Influenza A RNA d etected by PCR (amplified probe) Influenza B PCR Result Negative Negative 09/14/2023 3:08 PM EST [facility] Comment:No Influenza B RNA d etected by PCR (amplified probe) RSV PCR Result Negative Negative 09/14/2023 3:08 PM EST [facility] Comment:No Respiratory Syncy tial Virus RNA detected by PCR (amplified probe) Upper Respiratory Mid-turbinate nasal swab / Unknown Non-blood Collection / Unknown 09/14/2023 1:32 PM EST 09/14/2023 1:49 PM EST Deanne Contreras PA-C LAB MICRO - GENERAL ORDERABLES [facility] [address] [place] [address] documented in this encounter Visit Diagnoses Diagnosis Depression with anxiety- Primary Dysthymic disorder Suicide attempt by drug overdose (HCC) PTSD (post-traumatic stress disorder) Posttraumatic stress disorder Intellectual disability Unspecified intellectual disabilities Suicide attempt (HCC) Suicide and self-inflicted injury by unspecified means Intentional overdose (HCC) Depression Depressive disorder, not elsewhere classified documented in this encounter Advance Directives Latest [...] the patient have Health Care Power of Nuclear Auxiliary Operator? No Code Status History Code Status Date Activated Date Inactivated Comments Full Code 06/04/2022 12:26 AM 06/17/2022 2:39 PM Th is order reflects the patients wishes and were consensually agreed upon. Question Answer Comments Discussion of Advance Directives occurred with: Patient Does the patient have a Living Will? No Does the patient have Health Care Power of Nuclear Auxiliary Operator? No Full Code 05/02/2022 11:32 PM 05/09/2022 1:15 PM This order reflects the patients wishes and were consensually agreed upon. Question Answer Comments Discussion of Advance Directives occurred with: Patient Does the patient have a Living Will? No Does the patient have Health Care Power of Nuclear Auxiliary Operator? No Full Code 03/05/2022 5:38 AM 03/09/2022 4:16 PM This order reflects the patients wishes and were consensually agreed upon. Question Answer Comments Discussion of Advance Directives occurred with: Patient Does the patient have a Living Will? No Does the patient have Health Care Power of Nuclear Auxiliary Operator? No Full Code 01/23/2022 1:50 AM 02/03/2022 5:03 PM This o rder reflects the patients wishes and were consensually agreed upon. Question Answer Comments Discussion of Advance Directives occurred with: Patient Does the patient have a Living Will? No Does the patient have Health Care Power of Nuclear Auxiliary Operator? No Care Teams Bend Sorter Relationship Specialty Start Date End Date Olinda Wang DO [address] [place] [address] PCP - General Family Medicine 08/09/23 documented as of this encounter
--- OUTSIDE RECORDS SUMMARY | 2023-10-08 11:53 | External Medical Summary ---
Author Name Unknown Address Unknown Organization [id number]:[facility] - [address] [place] [address] Laboratory Report Ordering Provider Test Date Status DORON GAO 09/14/2023 22:38:00 Final Observation Date Value Abnormality Reference (Units ) Status Salicylates 09/14/2023 22:38:00 <0.3 Below low normal 5 .0-30.0 (mg/dL) Final Performing Location [facility] - [address] [place] [id number]
--- OUTSIDE RECORDS SUMMARY | 2023-10-08 11:53 | External Medical Summary ---
Author Name Unknown Address Unknown Organization K1F:[facility] - [address] [place] [address] Laboratory Report Ordering Provider Test Date Status DORON GAO 09/14/2023 22:38:00 Final Observation Date Value Abnormality Reference (Units ) Status Acetaminophen 09/14/2023 22:38:00 <5.0 Below low normal 10.0-30.0 (ug/mL) Final Performing Location [facility] - [address] [place] [id number]
--- OUTSIDE RECORDS SUMMARY | 2023-10-08 11:53 | External Medical Summary | Summary of Care ---
Author Name Unknown Organization [facility] Address [address] [place] [address] Phone [phone] Care Team Providers Care Billet Recorder Name Role Phone Olinda Wang DO Primary Care Provider + Reason for Visit * Reason Comments Psychological Evaluation * Auth/Cert Specialty Diagnoses / Procedures Referred By Jordyn t Referred To Contact Referral ID Status Reason Start Date Expiration Date Visits Re quested Visits Authorized [id number] Encounter Details Date Type Department Care Team ([facility] Contact Info) Description 10/01/2023 10:46 PM EST - 10/01/2023 11:55 PM EST Emergency [facility] Emergency Department ([facility]) [address] [place] [address] Denis Pablo MD [address] [place] [address] Suicidal ideations (Primary Dx); Screening for cardiovascular condition; Anxiety; Depression, unspecified depression type Discharge Disposition: Home - Self Care Allergies Active Allergy Reactions Criticality Noted Date Comments Aspirin Hives 11/18/2018 Apparently her mother told her she is allergic to it documented as of this encounter (statuses as of 10/02/2023) Medications Medication Sig Dispensed Refills Start Date [...] as of this encounter (statuses as of 10/02/2023) Active Problems Problem Noted Date Diagnosed Date [...] as of this encounter (statuses as of 10/02/2023) Resolved Problems Problem Noted Date Diagnosed Date [...] as of this encounter (statuses as of 10/02/2023) Immunizations Name Administration Dates Next Due HPV [...] Sign Reading Time Taken Comments Blood Pressure 137/95 10/01/2023 11:44 PM EST Pulse 102 10/01/2023 11:44 PM EST Temperature 36 C (96.8 F) 10/01/2023 10:50 PM EST Respiratory Rate 20 10/01/2023 11:44 PM EST Oxygen Saturation 93% 10/01/2023 10:50 PM EST Inhaled Oxygen Concentration - - Weight 127 kg (280 lb) 10/01/2023 10:50 PM EST Height - - Body Mass Index 49.6 09/14/2023 10:16 PM [...] this encounter Discharge Instructions * Discharge Instructions* Felipe Telles PA-C - 10/01/2023 11:51 PM EST You were seen today in the ED for a psych evaluation. We were able to contact the police and they will meet you at the [facility] to take you to get your medications. You have been provided with the phone number, please give them a call when you get back to the [facility]. You feel safe going home and donot feel suicidal since you are able to get her medications back please return to the ED if you areexperiencing worsening condition, more suicidal thoughts. Please continue to take your medications as prescribed. documented in this encounter ED Notes * Kymberly Philip DO - 10/01/2023 11:18 PM EST HISTORY OF PRESENT ILLNESS Alicia Jones is a 28 year old female who presents to the ED for evaluation of Psychological Evaluation. The patient was seen at 10/01/23 2301. Patient is a 28-year-old female with a past medical history of bipolar 1, suicide attempt, PTSD, major depressive disorder, who is presentingto the ED today for a psych evaluation. Patient states that she was kicked out of her house recently and the people that she was living of will not give her her meds. She states that she is tried contacting them but was unable to get in contact with them to get them. She states that they keep telling her they are not home. Patient states that she is having suicidal thoughts currently which are due to not being able to get her meds. Patient states that these started about 2 hours ago. She statesshe is thinking of ways she could do it. Patient denies any homicidal intent. Patient states that if she were able to get her meds she would go back to the [facility]. Psychological Evaluation Presenting symptoms: suicidal thoughts Associated symptoms: no abdominal pain, no chest pain and no headaches Review of Systems Constitutional: Negative for chills and fever. HENT: Negative for trouble swallowing. Respiratory: Negative for chest tightness and shortness of breath. Cardiovascular: Negative for chest pain and palpitations. Gastrointestinal: Negative for abdominal pain, constipation, diarrhea, nausea and vomiting. Genitourinary: Negative for difficulty urinating and dysuria. Neurological: Negative for dizziness, syncope, light-headedness and headaches. Psychiatric/Behavioral: Positive for suicidal ideas. The patient's allergies, past history, and medications were reviewed. PHYSICAL EXAM Initial Vitals (see all): BP 137/97 | Pulse 107 | Resp 20 | Temp 96.8 | O2 93 %Weight 127.01 kg | Height 160 cm | BMI 49.6 kg/m2 Initial Pain Assessment (see all): 0 (no pain)/10 ([facility] Adult Scale 0-10) Physical Exam Vitals and nursing note reviewed. Constitutional: General: She is not in acute distress. Appearance: Normal appearance. She is normal weight. She is not ill-appearing. HENT: Head: Normocephalic and atraumatic. Eyes: Conjunctiva/sclera: Conjunctivae normal. Cardiovascular: Rate and Rhythm: Normal rate and regular rhythm. Pulses: Normal pulses. Heart sounds: Normal heart sounds. No murmur heard. No friction rub. No gallop. Pulmonary: Effort: Pulmonary effort is normal. No respiratory distress. Breath sounds: Normal breath sounds. No stridor. No wheezing. Abdominal: General: Bowel sounds are normal. There is no distension. Palpations: Abdomen is soft. There is no mass. Tenderness: There is no abdominal tenderness. Musculoskeletal: General: Normal range of motion. Cervical back: Normal range of motion and neck supple. Neurological: General: No focal deficit present. Mental Status: She is alert and oriented to person, place, and time. Mental status is at baseline. PROCEDURES AND TREATMENTS ED Orders | ED Results MEDICAL DECISION MAKING Nursing notes and vital signs were reviewed. ED Course as of 10/02/23138Oct 01, 20232300 BP: 137/97 [CY] 2300 Pulse: 107 [CY] 2300 Resp: 20 [CY] 2300 SpO2: 93 % [CY] 2300 Temp: 36 C (96.8 F) [CY] 2353 EKG - per protocol My interpretation of EKG, sinus tachycardia with ventricular rate of 103 beats per minute. CO interval 140 millisecond. QRS duration 74 millisecond. No evidence of STEMI. [CY] ED Course User Index [CY] Felipe Telles, TATUM Differential Diagnoses Based on my history, physical exam, and evaluation, the differential includes, but is not limited, to the following diagnoses: anxiety, bipolar disorder, major depression, mood disorder, suicidal andsuicidal ideation. 28-year-old female with a past medical history of bipolar 1 disorder, suicide attempt, PTSD, major depressive disorder, who presented for psych evaluation. Was kicked out of her house, unable to get her meds, tried contacting, no success. Suicidal thoughts, started 2 hours ago, thinking of ways to do it. No homicidal intent. Is on Lexapro, doxepin, Minipress, unable to take these currently. I have discussed with the patient that we have the ability to contact the police to get her meds back, she would like to go through with this route, and she states that she will go back to the [facility] after getting her meds. Patient states that she was only feeling suicidal because she did not haveher meds, and she will feel better when she has them back. Patient states that she does feel safe to go home to the [facility]. We have contacted the police, who are in agreement to meet the patient back of the shoulder, and take her to get her meds. We will coordinate a way for the patient to get back to the [facility]. The patient's friend is going to come to the ED and walk with her back to the [facility], the patient is agreeable to do this. Patient is stable and was discharged home with strict return precautions. She will contact the police when she returns and they will take her to get her medications. Amount and/or Complexity of Data Reviewed Labs: ordered. ECG/medicine tests: ordered. Decision-making details documented in ED Course. Clinical Impressions Suicidal ideations Anxiety Depression, unspecified depression type Disposition Discharged. The patient's condition at disposition was: stable. Kymberly Philip was the attending physician who supervised the care of this patient. Felipe Telles PA-C I did not personally evaluate the patient in the ED. The MLP did evaluate and treat the patient. The case was discussed with me and I am in agreement with the treatment and plan. Kymberly Philip DO * Rosemarie Valderrama RN - 10/01/2023 10:47 PM EST BLS Report: Pt was recently kicked out of the place that she was living at, reports that the individuals ban will not give her the medications that she takes. Pt states that the last time that she took her medications was yesterday morning. Pt states that she is having SI, when asked if she has a plan pt states "multiple different ways." Denies HI. Pt changed into paper scrubs, belongings secured in c-locker. documented in this encounter Miscellaneous Notes * ED Water Superintendent Note - Gael Benedict RN - 10/01/2023 11:54 PM EST Pt verbalized understanding of discharge instructions, given number for police to collect her medications * ED Water Superintendent Note - Gael Benedict RN - 10/01/2023 11:15 PM EST Pt presents to ED with SI after being kicked out of where she was living. Pt states the people she was living with were being controlling and then kicked her out of the house and will not give her medications to her. Pt states SI with a plan, when asked about her plan she states "multiple differentways". Pt denies HI. documented in this encounter Plan of Treatment Scheduled Orders Name Type Priority Associated Diagnoses Orde r Schedule TOXICOLOGY, URINESCREEN W/O CONFIRMATION Lab STAT One Time for 1 Occurrences starting 10/01/2023 until 10/01/2023 Scheduled Procedures Name Priority Associated Diagnoses Date/Ti [...] Date/Time Associated Diagnosis Comments DIFFERENTIAL, AUTOMATED STAT 10/01/2023 11:12 PM EST INFLUENZA A/B RSV SARS-COV2,PCR STAT 10/01/2023 11:12 PM EST BETA-HCG, QUANTITATIVE STAT 11:12 PM EST COMPREHENSIVE METABOLIC PANEL STAT 10/01/2023 11:12 PM EST CBC STAT 10/01/2023 11:12 PM EST ETHANOL, MEDICAL STAT 10/01/2023 11:1 2 PM EST CBC STAT 10/01/2023 11:12 PM EST ACETAMINOPHEN LEVEL STAT 10/01/2023 1 1:12 PM EST SALICYLATES LEVEL STAT 10/01/2023 11: 12 PM EST documented in this encounter Results * (ABNORMAL) DIFFERENTIAL, AUTOMATED (10/01/2023 11:12 PM EST) Pathologist [facility] WBC 10.97(H) 4.00 - 10.80 K/uL 10/01/2023 11:20 PM EST [facility] Neutrophils % 62.7 40.0 - 75.0 % 10/01/2023 11:20 PM EST [facility] Lymphocytes % 28.4 18.0 - 42.0 % 10/01/2023 11:20 PM EST [facility] Monocytes % 6.5 1.0 - 11.0 % 10/01/2023 11:20 PM EST [facility] Eosinophils % 1.7 0.0 - 6.0 % 10/01/2023 11:20 PM EST [facility] Basophils % 0.4 0.0 - 2.0 % 10/01/2023 11:20 PM EST [facility] Immature Granulocytes % 0.3 0.0 - 2.0 % 10/01/2023 11:20 PM EST [facility] Absolute Neutrophils 6.88 1.80 - 7.70 K/uL 10/01/2023 11:20 PM EST [facility] Absolute Lymphocytes 3.12 1.00 - 4.80 K/ul 10/01/2023 11:20 PM EST [facility] Absolute Monocytes 0.71 0.00 - 1.10 K/uL 10/01/2023 11:20 PM EST [facility] Absolute Eosinophils 0.19 0.00 - 0.70 K/uL 10/01/2023 11:20 PM EST [facility] Absolute Basophils 0.04 0.00 - 0.20 K/uL 10/01/2023 11:20 PM EST [facility] Absolute Immature Granulocytes 0.03 0.00 - 0.20 K/uL 10/01/2023 11:20 PM EST [facility] Blood Venous blood specimen / Unknown Venipuncture / Unknown 10/01/2023 11:12 PM EST 10/01/2023 11:17 PM EST Kymberly Philip DO LAB BLOOD [facility] [address] [place] [address] * (ABNORMAL) CBC (10/01/2023 11:12 PM EST) WBC 10.97(H) 4.00 - 10.80 K/uL 10/01/2023 11:20 PM EST LABORATORY GL RBC 4.69 3.85 - 5.15 M/uL 10/01/2023 11:20 PM EST LABORATORY GL HGB 14.2 12.0 - 15.3 g/dL 10/01/2023 11:20 PM EST LABORATORY GL HCT 43.4 36.0 - 45.2 % 10/01/2023 11:20 PM EST [facility] MCV 92.5 81.5 - 97.5 fL 10/01/2023 11:20 PM EST LABORATORY GL MCH 30.3 27.0 - 34.0 pg 10/01/2023 11:20 PM EST LABORATORY GL MCHC 32.7 32.0 - 36.0 g/dL 10/01/2023 11:20 PM EST LABORATORY GL RDW 13.2 11.5 - 15.5 % 10/01/2023 11:20 PM EST LABORATORY GL PLT 298 140 - 400 K/uL 10/01/2023 11:20 PM EST [facility] MPV 8.9 6.6 - 11.1 fL 10/01/2023 11:20 PM EST LABORATORY GL nRBCs 0 <=0 /100 WBCs 10/01/2023 11:20 PM EST LABORATORY GL Blood Venous blood specimen / Unknown Venipuncture / Unknown 10/01/2023 11:12 PM EST 10/01/2023 11:17 PM EST Kymberly Philip DO LAB BLOOD [facility] Performing Organization Address [facility] de Phone Number LABORATORY [address] [address] * BETA-HCG, QUANTITATIVE (10/01/2023 11:12 PM EST) [facility] Beta-HCG, Quantitative <0.1 <=1.0 mIU/mL 10/01/2023 11:50 PM EST LABORATORY [facility] Blood Venous blood specimen / Unknown Venipuncture / Unknown 10/01/2023 11:12 PM EST 10/01/2023 11:17 PM EST Narrative LABORATORY [facility] - 10/01/2023 11:50 PM EST hCG can serve as a screening assay for . However, early may not give a positive hCG test result. In addition, some non- women may have a hCG result slightly higher than the reference limit. Careful interpretation of the hCG with clinical history is required to determine whether the patient may be . Kymberly Philip DO [facility] BLOOD [facility] Performing Organization Address [facility] Co de Phone Number LABORATORY [address] [address] * INFLUENZA A/B RSV SARS-COV2,PCR (10/01/2023 11:12 PM EST) [facility] SARS-CoV-2 (COVID-19) Result Negative Negative 10/01/2023 11:59 PM EST LABORATORY [facility] Comment: No SARS-CoV2 Coronavirus RNA detected by PCR (amplified probe). This express test was developed and its performance characteristics determined by [employer]. It has not been cleared or approved [...] was developed and performance characteristics determined by [facility]. The validation of alternate specimen types has not been cleared or approved by the U.S. Food and Drug Administration (FDA). It has been determined that such clearance is not necessary. Influenza A PCR Result Negative Negative 10/01/2023 11:59 PM EST LABORATORY [facility] Comment:No Influenza A RNA d etected by PCR (amplified probe) Influenza B PCR Result Negative Negative 10/01/2023 11:59 PM EST LABORATORY [facility] Comment:No Influenza B RNA d etected by PCR (amplified probe) RSV PCR Result Negative Negative 10/01/2023 11:59 PM EST LABORATORY [facility] Comment:No Respiratory Syncy tial Virus RNA detected by PCR (amplified probe) Upper Respiratory Mid-turbinate nasal swab / Unknown Non-blood Collection / Unknown 10/01/2023 11:12 PM EST 10/01/2023 11:17 PM EST Kymberly Philip DO LAB MICRO - GE NERAL ORDERABLES Performing Organization Address City/[facility]/ZIP Co de Phone Number LABORATORY [address] [address] * (ABNORMAL) SALICYLATES LEVEL (10/01/2023 11:12 PM EST) Salicylates Level <0.3(L) 5.0 - 30.0 mg/dL 10/01/2023 11:39 PM EST LABORATORY [facility] Blood Venous blood specimen / Unknown Venipuncture / Unknown 10/01/2023 11:12 PM EST 10/01/2023 11:17 PM EST Kymberly Philip DO LAB BLOOD [facility] Performing Organization Address City/[facility]/ZIP Co de Phone Number LABORATORY [address] [address] * (ABNORMAL) ACETAMINOPHEN LEVEL (10/01/2023 11:12 PM EST) Acetaminophen Level <5.0(L) 10.0 - 30.0 ug/mL 10/01/2023 11:39 PM EST [facility] Blood Venous blood specimen / Unknown Venipuncture / Unknown 10/01/2023 11:12 PM EST 10/01/2023 11:17 PM EST Kymberly Philip DO LAB BLOOD [facility] [address] [place] [address] * (ABNORMAL) COMPREHENSIVE METABOLIC PANEL (10/01/2023 11:12 PM EST) BUN 12 6 - 20 mg/dL 10/01/2023 11:39 PM EST [facility] Creatinine 0.7 0.5 - 1.0 mg/dL 10/01/2023 11:39 PM EST [facility] Estimated Glomerular Filtration Rate >90 >=60 mL/min 10/01/2023 11:39 PM EST [facility] Comment:eGFR is calculated b ased on the CKD-EPI 2020 equation Sodium 140 135 - 146 mmol/L 10/01/2023 11:39 PM EST [facility] Potassium 3.7 3.5 - 5.1 mmol/L 10/01/2023 11:39 PM EST [facility] Chloride 103 98 - 107 mmol/L 10/01/2023 11:39 PM EST [facility] CO2 27 22 - 32 mmol/L 10/01/2023 11:39 PM EST [facility] Anion Gap 10 7 - 15 mmol/L 10/01/2023 11:39 PM EST [facility] Glucose 104 70 - 120 mg/dL 10/01/2023 11:39 PM EST [facility] Albumin 3.9 3.8 - 5.0 g/dL 10/01/2023 11:39 PM EST [facility] AST 53(H) 10 - 35 U/L 10/01/2023 11:39 PM EST [facility] Comment:Result may be falsel y elevated due to hemolysis. Alkaline Phosphatase 180(H) 35 - 130 U/L 10/01/2023 11:39 PM EST [facility] Bilirubin, Total 0.2 <=1.2 mg/dL 10/01/2023 11:39 PM EST [facility] Calcium 8.8 8.4 - 10.2 mg/dL 10/01/2023 11:39 PM EST [facility] Protein 7.5 6.0 - 8.3 g/dL 10/01/2023 11:39 PM EST [facility] ALT 104(H) 10 - 35 U/L 10/01/2023 11:39 PM EST [facility] Blood Venous blood specimen / Unknown Venipuncture / Unknown 10/01/2023 11:12 PM EST 10/01/2023 11:17 PM EST Kymberly Philip DO LAB BLOOD [facility] Performing Organization Address City/[facility]/ZIP Co de Phone Number LABORATORY [address] [address] * ETHANOL, MEDICAL (10/01/2023 11:12 PM EST) ETHANOL, MEDICAL Negative Negative 10/01/2023 11:39 PM EST LABORATORY GL Blood Venous blood specimen / Unknown Venipuncture / Unknown 10/01/2023 11:12 PM EST 10/01/2023 11:17 PM EST Kymberly Philip [facility] BLOOD [facility] [address] [address] documented in this encounter Visit Diagnoses Diagnosis Suicidal ideations- Primary Suicidal ideation Screening for cardiovascular condition Screening for other and unspecified cardiovascular conditions Anxiety Anxiety state, unspecified Depression, unspecified depression type documented in this encounter Advance Directives Latest [...] the patient have Health Care Power of Grape Pruner? No Code Status History Code Status Date Activated Date Inactivated Comments Full Code 06/04/2022 12:26 AM 06/17/2022 2:39 PM Th is order reflects the patients wishes and were consensually agreed upon. Question Answer Comments Discussion of Advance Directives occurred with: Patient Does the patient have a Living Will? No Does the patient have Health Care Power of Grape Pruner? No Full Code 05/02/2022 11:32 PM 05/09/2022 1:15 PM This order reflects the patients wishes and were consensually agreed upon. Question Answer Comments Discussion of Advance Directives occurred with: Patient Does the patient have a Living Will? No Does the patient have Health Care Power of Grape Pruner? No Full Code 03/05/2022 5:38 AM 03/09/2022 4:16 PM This order reflects the patients wishes and were consensually agreed upon. Question Answer Comments Discussion of Advance Directives occurred with: Patient Does the patient have a Living Will? No Does the patient have Health Care Power of Grape Pruner? No Full Code 01/23/2022 1:50 AM 02/03/2022 5:03 PM This o rder reflects the patients wishes and were consensually agreed upon. Question Answer Comments Discussion of Advance Directives occurred with: Patient Does the patient have a Living Will? No Does the patient have Health Care Power of Grape Pruner? No Care Teams Billet Recorder Relationship Specialty Start Date End Date Olinda Wang DO [address] [place] [address] PCP - General Family Medicine 08/09/23 documented as of this encounter
--- OUTSIDE RECORDS SUMMARY | 2023-10-08 11:53 | External Medical Summary ---
Author Name Unknown Address Unknown Organization [facility] [address] [facility] [address] Laboratory Report Ordering Provider Test Date Status CRISTA HALL 10/01/2023 23:12:33 Final Observation Date Value Abnormality Reference (Units ) Status SYNC LEUKOCYTES IN BLOOD BY AUTOMATED COUNT 10/01/2023 23:12:33 10.97 Above high normal 4.00-10.80 (K/uL) Final Segs 10/01/2023 23:12:33 62.7 40.0-75.0 (%) Final Lymphs % 10/01/2023 23:12:33 28.4 18.0-42.0 (%) Final Monos 10/01/2023 23:12:33 6.5 1.0-11.0 (%) Final Eosinophils 10/01/2023 23:12:33 1.7 0.0-6.0 (%) Final Basos 10/01/2023 23:12:33 0.4 0.0-2.0 (%) Final Immature Granulocyte, Percent 10/01/2023 23:12:33 0.3 0.0-2.0 (%) Final Absolute Segs 10/01/2023 23:12:33 6.88 1.80-7.70 (K/uL) Final Lymphs, absolute 10/01/2023 23:12:33 3.12 1.00-4.80 (K/ul) Final Monos, Abs 10/01/2023 23:12:33 0.71 0.00-1.10 (K/uL) Final Eos, Abs 10/01/2023 23:12:33 0.19 0.00-0.70 (K/uL) Final Basos, Abs 10/01/2023 23:12:33 0.04 0.00-0.20 (K/uL) Final Immature Granulocytes, Number 10/01/2023 23:12:33 0.03 0.00-0.20 (K/uL) Final Performing Location LABORATORY [facility] - [address] [place] [address]
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
--- OUTSIDE RECORDS SUMMARY | 2023-10-08 11:53 | External Medical Summary ---
Author Name Unknown Address Unknown Organization [facility] [address] [facility] [place] [address] Laboratory Report Ordering Provider Test Date Status CRISTA HALL 10/01/2023 23:12:33 Final Observation Date Value Abnormality Reference (Units ) Status BUN 10/01/2023 23:12:33 12 6-20 (mg/dL) Final Creatinine 10/01/2023 23:12:33 0.7 0.5-1.0 (mg/dL) Final Glomerular filtration rate/1.73 sq M.predicted [Volume Rate/Area] in Serum, Plasma or Blood by Creatinine-based formula (CKD-EPI) 10/01/2023 23:12:33 >90 >=60 (mL/min) Final eGFR is calculated based on the CKD-EPI 2020 equation SODIUM 10/01/2023 23:12:33 140 135-146 (m mol/L) Final Potassium 10/01/2023 23:12:33 3.7 3.5-5.1 (m mol/L) Final Cl 10/01/2023 23:12:33 103 98-107 (mm ol/L) Final CO2 10/01/2023 23:12:33 27 22-32 (mmo l/L) Final Anion gap 10/01/2023 23:12:33 10 7-15 (mmol /L) Final Glucose 10/01/2023 23:12:33 104 70-120 (mg /dL) Final Albumin 10/01/2023 23:12:33 3.9 3.8-5.0 (g /dL) Final AST (Aspartate aminotransferase) 10/01/2023 23:12:33 53 Above high normal 10-35 (U/L) Final Result may be falsely elevat ed due to hemolysis. Alk Phos 10/01/2023 23:12:33 180 Above high normal 35 -130 (U/L) Final Bilirubin, Total 10/01/2023 23:12:33 0.2 <=1 .2 (mg/dL) Final Calcium 10/01/2023 23:12:33 8.8 8.4-10.2 ( mg/dL) Final Protein 10/01/2023 23:12:33 7.5 6.0-8.3 (g /dL) Final ALT (Alanine aminotransferase) 10/01/2023 23:12:33 104 Above high normal 10-35 (U/L) Final Performing Location LAB[facility]ATORY [facility] - [facility] [address] [place] [address]
--- OUTSIDE RECORDS SUMMARY | 2023-10-08 11:53 | External Medical Summary ---
Author Name Unknown Address Unknown Organization K1[facility] - [address] [place] [address] Laboratory Report Ordering Provider Test Date Status CRISTA HALL 10/01/2023 23:12:33 Final Observation Date Value Abnormality Reference (Units ) Status Acetaminophen 10/01/2023 23:12:33 <5.0 Below low normal 10.0-30.0 (ug/mL) Final Performing Location [facility] - [address] [place] [address]
--- OUTSIDE RECORDS SUMMARY | 2023-10-08 11:53 | External Medical Summary ---
Author Name Unknown Address Unknown Organization K1[facility]ORY [facility] - [address] [facility] [address] Laboratory Report Ordering Provider Test Date Status KEHINDE GURROLA 10/06/2023 16:08:24 Final Observation Date Value Abnormality Reference (Units ) Status Color of Urine by Auto 10/06/2023 16:08:24 Yellow Light Yellow, Yellow, Dark Yellow Final Clarity, Urine 10/06/2023 16:08:24 Clear Clear Final Glucose [Mass/volume] in Urine by Automated test strip 10/06/2023 16:08:24 Negative Negative (mg/dL) Final Bilirubin.total [Presence] in Urine by Automated test strip 10/06/2023 16:08:24 Negative Negative Final Ketones [Mass/volume] in Urine by Automated test strip 10/06/2023 16:08:24 Negative Negative (mg/dL) Final Specific gravity, Urine 10/06/2023 16:08:24 1.018 1.003-1.030 Final Hemoglobin [Presence] in Urine by Automated test strip 10/06/2023 16:08:24 Large Abnormal Negative Final pH, Urine 10/06/2023 16:08:24 7.0 5.0-7.5 (Units) Final Protein [Mass/volume] in Urine by Automated test strip 10/06/2023 16:08:24 Negative Negative (mg/dL) Final Urobilinogen [Mass/volume] in Urine by Automated test strip 10/06/2023 16:08:24 0.2 0.2, 1.0 (mg/dL) Final Nitrite [Presence] in Urine by Automated test strip 10/06/2023 16:08:24 Negative Negative Final Leukocyte esterase [Presence] in Urine by Automated test strip 10/06/2023 16:08:24 Negative Negative Final Performing Location [facility] [address] [facility] [address]
--- OUTSIDE RECORDS SUMMARY | 2023-10-08 11:54 | External Medical Summary | Summary of Care ---
Author Name Unknown Organization [facility] Address [address] [place] [address] Phone [phone] Care Team Providers Care Health Club Attendant Name Role Phone Olinda Wang DO Primary Care Provider + Reason for Visit * Reason Comments Joint Pain * Auth/Cert Specialty Diagnoses / Procedures Referred By Jordyn t Referred To Contact Referral ID Status Reason Start Date Expiration Date Visits Re quested Visits Authorized [id number] Encounter Details Date Type Department Care Team ([facility] st Contact Info) Description 09/13/2023 5:06 PM EST - 09/13/2023 5:22 PM EST Emergency [facility] ([facility]) [address], [place] [id number] Leg swelling (Primary Dx) Discharge Disposition: Home - Self Care Allergies Active Allergy Reactions Criticality Noted Date Comments Aspirin Hives 11/18/2018 Apparently her mother told her she is allergic to it documented as of this encounter (statuses as of 09/14/2023) Medications Medication Sig Dispensed Refills Start Date [...] as of this encounter (statuses as of 09/14/2023) Active Problems Problem Noted Date Diagnosed Date Bipolar affective disorder, currently depressed, mild 08/12/2023 [...] Hepatic steatosis 03/06/2019 Tobacco use disorder 01/04/2019 Mild intellectual disability 12/16/2018 Major depression, recurrent 11/24/2018 PTSD (post-traumatic stress disorder) 11/24/2018 Learning disorder 11/24/2018 documented as of this encounter (statuses as of 09/14/2023) Resolved Problems Problem Noted Date Diagnosed Date [...] as of this encounter (statuses as of 09/14/2023) Immunizations Name Administration Dates Next Due HPV [...] Sign Reading Time Taken Comments Blood Pressure 141/78 09/13/2023 5:08 PM EST Pulse 99 09/13/2023 5:08 PM EST Temperature 36.2 C (97.2 F) 09/13/2023 5:08 PM ES T Respiratory Rate 20 09/13/2023 5:08 PM EST Oxygen Saturation 97% 09/13/2023 5:08 PM EST Inhaled Oxygen Concentration - - Weight 127 kg (280 lb) 09/13/2023 5:08 PM EST Height 160 cm (5' 3") 09/13/2023 5:08 PM EST Body Mass Index 49.6 09/13/2023 5:08 PM EST documented in this encounter Functional [...] this encounter Discharge Instructions * Discharge Instructions* Jatinder Goddard PA-C - 09/13/2023 5:16 PM EST Please avoid salty foods and snacks, or process foods/can foods as they contain a lot of salt will increase her swelling. Elevate your legs as much as possible, compression socks may be purchased from any local pharmacy or [employer] Follow- up with her primary doctor for re-evaluation further management. documented in this encounter ED Notes * Rafael Tobin DO - 09/13/2023 5:22 PM EST HISTORY OF PRESENT ILLNESS Alicia Jones is a 28 year old female who presents to the ED for evaluation of Joint Pain. The patient was seen at 09/13/23 1709. Patient presents today with concerns for bilateral lower extremity pain and swelling. She reports she has had issues for quite some time, but she felt theywere worse recently. Reports her swelling is about baseline, but she gets a tingling pain in both of her feet, and they feel "numb. Seems to get better overnight and then worse throughout the day, the more she stands the worse it gets. Denies SOB, CP, calf pain, weakness The patient's allergies, past history, and medications were reviewed. PHYSICAL EXAM Initial Vitals (see all): BP 141/78 | Pulse 99 | Resp 20 | Temp 97.2 | O2 97 %Weight 127.01 kg | Height 160 cm | BMI 49.6 kg/m2 Physical Exam Vitals and nursing note reviewed. Constitutional: Appearance: Normal appearance. She is not ill-appearing. HENT: Head: Normocephalic. Cardiovascular: Rate and Rhythm: Normal rate and regular rhythm. Heart sounds: Normal heart sounds. Pulmonary: Effort: Pulmonary effort is normal. Breath sounds: Normal breath sounds. Abdominal: Palpations: Abdomen is soft. Tenderness: There is no abdominal tenderness. Musculoskeletal: General: No tenderness. Right lower leg: Edema (trace) present. Left lower leg: Edema (trace) present. Skin: General: Skin is warm. Capillary Refill: +2 PT and DP pulses Neurological: General: No focal deficit present. Mental Status: She is alert and oriented to person, place, and time. Sensory: No sensory deficit. Motor: No weakness. PROCEDURES AND TREATMENTS ED Orders | ED Results MEDICAL DECISION MAKING Nursing notes and vital signs were reviewed. Differential Diagnoses Based on my history, physical exam, and evaluation, the differential includes, but is not limited, to the following diagnoses: Leg swelling, mild peripheral edema, neuropathy, less likely heart failure, DVT, cauda equina,. 28-year-old female presents today with complaints of some mild edema to both lower legs, as well assome tingling and pain in both her legs that has been ongoing for quite some time. Vital signs reassuring, no other concerning signs or symptoms, symptoms consistent with mild peripheral edema/peripheral neuropathy. Educated her on conservative ways to manage mild peripheral edema, we discussed return precautions,and she was discharged. Clinical Impressions Leg swelling Disposition Discharged. The patient's condition at disposition was: stable. RAFAEL TOBIN was the attending physician who supervised the care of this patient. Jatinder Goddard PA-C I did not personally evaluate the patient in the ED. The [facility] did evaluate and treat the patient in the ED. The case was discussed with me and I am in agreement with the treatment and plan. Rafael Tobin DO * Julian Craft RN - 09/13/2023 5:06 PM EST B/L ankle pain since yesterday morning. States that pain radiates up into the B/L knees. Also states that she has some swelling in both legs c/t baseline. Denies any acute injuries causing the symptoms at hand. documented in this encounter Miscellaneous Notes * Pt Handout (on AVS) - Jatinder Goddard PA-C - 09/13/2023 5:16 PM EST Images from the original note were not included. [id number] Leg Swelling in Both Legs Swelling of the feet, ankles, and legs is called edema. It's caused by extra fluid that has collected in the tissues. Extra fluid in the body settles in the lowest part because of gravity. This is why the legs and feet are most affected. Some of the causes for edema include: Disease of the heart, such as congestive heart failure Standing or sitting for long periods of time Infection of the feet or legs Blood pooling in the veins of your legs (venous insufficiency) when the veins have less elasticity Dilated veins in your lower leg (varicose veins) Poor drainage of the lymphatic system Some medicines, including some hormones such as control pills, some blood pressure medicines such as calcium channel blockers, steroids, and some antidepressants such as MAO inhibitors and tricyclics Menstrual periods that cause you to retain fluids Many types of kidney disease Liver failure or cirrhosis , in which some swelling is normal, but a sudden increase in leg swelling or weight gain can be a sign of a dangerous complication of called eclampsia Poor nutrition Thyroid disease Treatment will depend on what is causing the swelling in your legs. Your healthcare provider may prescribe water pills (diuretics) to get rid of the extra fluid. Home care Follow these guidelines when caring for yourself at home: Keep your legs up while lying or sitting. If infection, injury, or recent surgery is causing the swelling, stay off your legs as much as possible until symptoms get better. If your healthcare provider says that your leg swelling is caused by venous insufficiency or varicose veins, don't sit or housing quality standard inspector one place for long periods of time. Take breaks and walk about every few hours. Brisk walking is a good exercise. It helps circulate the blood that has collected in your leg. Talk with your provider about using support stockings to stop daytime leg swelling. If your provider says that heart disease is causing your leg swelling, follow a low-salt diet tostop extra fluid from staying in your body. You may also need medicine. Follow-up care Follow up with your healthcare provider, or as advised. When to get medical advice Call your healthcare provider right away if any of these occur: Swelling in both legs or ankles that gets worse Belly (abdominal) swelling Redness, warmth, or swelling in 1 leg Fever of 100.4F (38C) or higher, or as advised by your provider Yellow color to your skin or eyes Rapid, unexplained weight gain Having to sleep upright or use more pillows Call 911 Call 911 or get medical care right away if you have: New shortness of breath or chest pain Worsening shortness of breath or chest pain? Last Reviewed Date: 03/23/202219994187-7716 [employer]. All rights reserved. This information is not intended as a substitute for professional medical care. Always follow your healthcare professional's instructions. documented in this encounter Plan of Treatment [...] as of this encounter Visit Diagnoses Diagnosis Leg swelling- Primary Swelling of limb documented in this encounter Advance Directives Latest [...] the patient have Health Care Power of Accounts Payable Manager? No Code Status History Code Status Date Activated Date Inactivated Comments Full Code 06/04/2022 12:26 AM 06/17/2022 2:39 PM Th is order reflects the patients wishes and were consensually agreed upon. Question Answer Comments Discussion of Advance Directives occurred with: Patient Does the patient have a Living Will? No Does the patient have Health Care Power of Accounts Payable Manager? No Full Code 05/02/2022 11:32 PM 05/09/2022 1:15 PM This order reflects the patients wishes and were consensually agreed upon. Question Answer Comments Discussion of Advance Directives occurred with: Patient Does the patient have a Living Will? No Does the patient have Health Care Power of Accounts Payable Manager? No Full Code 03/05/2022 5:38 AM 03/09/2022 4:16 PM This order reflects the patients wishes and were consensually agreed upon. Question Answer Comments Discussion of Advance Directives occurred with: Patient Does the patient have a Living Will? No Does the patient have Health Care Power of Accounts Payable Manager? No Full Code 01/23/2022 1:50 AM 02/03/2022 5:03 PM This o rder reflects the patients wishes and were consensually agreed upon. Question Answer Comments Discussion of Advance Directives occurred with: Patient Does the patient have a Living Will? No Does the patient have Health Care Power of Accounts Payable Manager? No Care Teams Health Club Attendant Relationship Specialty Start Date End Date Olinda Wang DO [address] [place] [id number] PCP - General Family Medicine 08/09/23 documented as of this encounter
--- OUTSIDE RECORDS SUMMARY | 2023-10-08 11:54 | External Medical Summary ---
Author Name Unknown Address Unknown Organization K1F:LABORATORY [facility] - [address] [facility] [address] Laboratory Report Ordering Provider Test Date Status DORON GAO 09/14/2023 22:26:33 Final Cutoff Concentrations:
Drug Level
Amphetamines 500 ng/mL
Benzodiazepines 100 ng/mL
Cannabinoids 50 ng/mL
Cocaine Metabolite 150 ng/mL
Fentanyl 1 ng/mL
Hydrocodone / Hydromorphone 300 ng/mL
Methadone Metabolite 100 ng/mL
Morphine / Codeine 300 ng/mL
Oxycodone / Oxymorphone 100 ng/mL

Screening results are presumptive and can only be used for medical purposes. Confirmatory testing is available upon request. Observation Date Value Abnormality Reference (Units ) Status Amphetamines, Urine screen 09/14/2023 22:26:33 Negative Negative Final Benzodiazepines, Urine screen 09/14/2023 22:26:33 Negative Negative Final Cannabinoids, Urine screen 09/14/2023 22:26:33 Negative Negative Final Cocaine Metabolite, Urine screen 09/14/2023 22:26:33 Negative Negative Final fentaNYL [Presence] in Urine by Screen method 09/14/2023 22:26:33 Negative Negative Final HYDROcodone [Presence] in Urine by Screen method 09/14/2023 22:26:33 Negative Negative Final 5-Fmaerefons-7,5-Dimeth yl-3,3-Diphenylpyrrolid ine (EDDP) [Presence] in Urine 09/14/2023 22:26:33 Negative Negative Final Opiates, Urine screen 09/14/2023 22:26:33 Negative Negative Final oxyCODONE [Presence] in Urine by Screen method 09/14/2023 22:26:33 Negative Negative Final Performing Location [facility]ORY [facility] [address] [facility] [place] [address]
--- OUTSIDE RECORDS SUMMARY | 2023-10-08 11:54 | External Medical Summary ---
Author Name Unknown Address Unknown Organization K1F:LABORATORY [facility] - [address] [place] [address] Laboratory Report Ordering Provider Test Date Status MORENA CHAVIRA 09/14/2023 13:47:00 Final Observation Date Value Abnormality Reference (Units ) Status TSH 09/14/2023 13:47:00 1.48 0.27-4.20 (uIU/mL) Final Performing Location LABORATORY [facility] - [address] [place] [address]
--- OUTSIDE RECORDS SUMMARY | 2023-10-08 11:54 | External Medical Summary ---
Author Name Unknown Address Unknown Organization K1F:LABORATORY [facility] - [address] [facility] [address] Laboratory Report Ordering Provider Test Date Status LISSETTE GAOYOHANNES 09/14/2023 22:38:00 Final hCG can serve as a screening assay for . However, early may not give a positive hCG test result. In addition, some non- women may have a hCG result slightly higher than the reference limit. Careful interpretation of the hCG with clinical history is required to determine whether the patient may be . Observation Date Value Abnormality Reference (Units ) Status Choriogonadotropin.intact +Beta subunit [Units/volume] in Serum or Plasma 09/14/2023 22:38:00 0.2 <=1.0 (mIU/mL) Final Performing Location LABORATORY [facility] - [address] [facility] [address] [facility] [address]
--- OUTSIDE RECORDS SUMMARY | 2023-10-08 11:54 | External Medical Summary ---
Author Name Unknown Address Unknown Organization K1F:LABORATORY [facility] - [address] [facility] [address] Laboratory Report Ordering Provider Test Date Status MORENA CHAVIRA 09/14/2023 13:47:00 Final Observation Date Value Abnormality Reference (Units ) Status SYNC LEUKOCYTES IN BLOOD BY AUTOMATED COUNT 09/14/2023 13:47:00 9.83 4.00-10.80 (K/uL) Final Segs 09/14/2023 13:47:00 66.7 40.0-75.0 (%) Final Lymphs % 09/14/2023 13:47:00 24.2 18.0-42.0 (%) Final Monos 09/14/2023 13:47:00 7.2 1.0-11.0 (%) Final Eosinophils 09/14/2023 13:47:00 1.1 0.0-6.0 (%) Final Basos 09/14/2023 13:47:00 0.2 0.0-2.0 (%) Final Immature Granulocyte, Percent 09/14/2023 13:47:00 0.6 0.0-2.0 (%) Final Absolute Segs 09/14/2023 13:47:00 6.55 1.80-7.70 (K/uL) Final Lymphs, absolute 09/14/2023 13:47:00 2.38 1.00-4.80 (K/ul) Final Monos, Abs 09/14/2023 13:47:00 0.71 0.00-1.10 (K/uL) Final Eos, Abs 09/14/2023 13:47:00 0.11 0.00-0.70 (K/uL) Final Basos, Abs 09/14/2023 13:47:00 0.02 0.00-0.20 (K/uL) Final Immature Granulocytes, Number 09/14/2023 13:47:00 0.06 0.00-0.20 (K/uL) Final Performing Location LABORATORY [facility] - [address] [place] [address]
--- OUTSIDE RECORDS SUMMARY | 2023-10-08 11:54 | External Medical Summary ---
Author Name Unknown Address Unknown Organization K1F:LABORATORY [facility] - [address] [place] [address] Laboratory Report Ordering Provider Test Date Status MORENA CHAVIRA 09/14/2023 13:47:00 Final Observation Date Value Abnormality Reference (Units ) Status BUN 09/14/2023 13:47:00 10 6-20 (mg/dL) Final Creatinine 09/14/2023 13:47:00 0.6 0.5-1.0 (mg/dL) Final Glomerular filtration rate/1.73 sq M.predicted [Volume Rate/Area] in Serum, Plasma or Blood by Creatinine-based formula (CKD-EPI) 09/14/2023 13:47:00 >90 >=60 (mL/min) Final eGFR is calculated based on the CKD-EPI 2020 equation SODIUM 09/14/2023 13:47:00 136 135-146 (m mol/L) Final Potassium 09/14/2023 13:47:00 3.7 3.5-5.1 (m mol/L) Final Cl 09/14/2023 13:47:00 101 98-107 (mm ol/L) Final CO2 09/14/2023 13:47:00 23 22-32 (mmo l/L) Final Anion gap 09/14/2023 13:47:00 12 7-15 (mmol /L) Final Glucose 09/14/2023 13:47:00 86 70-120 (mg /dL) Final Albumin 09/14/2023 13:47:00 4.0 3.8-5.0 (g /dL) Final AST (Aspartate aminotransferase) 09/14/2023 13:47:00 68 Above high normal 10-35 (U/L) Final Alk Phos 09/14/2023 13:47:00 174 Above high normal 35 -130 (U/L) Final Bilirubin, Total 09/14/2023 13:47:00 0.3 <=1 .2 (mg/dL) Final Calcium 09/14/2023 13:47:00 8.8 8.4-10.2 ( mg/dL) Final Protein 09/14/2023 13:47:00 7.5 6.0-8.3 (g /dL) Final ALT (Alanine aminotransferase) 09/14/2023 13:47:00 113 Above high normal 10-35 (U/L) Final Performing Location LABORATORY [facility] - [facility] [address] [place] [address]
--- OUTSIDE RECORDS SUMMARY | 2023-10-08 11:54 | External Medical Summary ---
Author Name Unknown Address Unknown Organization K1F:LABORATORY [facility] - [address] [facility] [address] Laboratory Report Ordering Provider Test Date Status MORENA CHAVIRA 09/14/2023 13:47:00 Final hCG can serve as a screening [...] subunit [Units/volume] in Serum or Plasma 09/14/2023 13:47:00 <0.1 <=1.0 (mIU/mL) Final Performing Location LABORATORY [facility] - [address] [facility] [address]
--- OUTSIDE RECORDS SUMMARY | 2023-10-08 11:54 | External Medical Summary ---
Author Name Unknown Address Unknown Organization K1F:LABORATORY [facility] - [address] [place] [address] Laboratory Report Ordering Provider Test Date Status MORENA CHAVIRA 09/14/2023 13:47:00 Final Observation Date Value Abnormality Reference (Units ) Status WBC, Total 09/14/2023 13:47:00 9.83 4.00-10.80 (K/uL) Final RBC 09/14/2023 13:47:00 4.95 3.85-5.15 (M/uL) Final Hemoglobin 09/14/2023 13:47:00 15.2 12.0-15.3 (g/dL) Final HCT 09/14/2023 13:47:00 46.0 Above high normal 36.0-45.2 (%) Final MCV 09/14/2023 13:47:00 92.9 81.5-97.5 (fL) Final MCH 09/14/2023 13:47:00 30.7 27.0-34.0 (pg) Final MCHC 09/14/2023 13:47:00 33.0 32.0-36.0 (g/dL) Final RDW 09/14/2023 13:47:00 13.0 11.5-15.5 (%) Final Platelets 09/14/2023 13:47:00 313 140-400 (K/uL) Final MPV 09/14/2023 13:47:00 9.0 6.6-11.1 (fL) Final Nucleated erythrocytes/100 leukocytes [Ratio] in Blood by Automated count 09/14/2023 13:47:00 0 <=0 (/100 WBCs) Final Performing Location LABORATORY [facility] - [address] [place] [address]
--- OUTSIDE RECORDS SUMMARY | 2023-10-08 11:54 | External Medical Summary ---
Author Name Unknown Address Unknown Organization K1F:LABORATORY [facility] - [address] [place] [address] Laboratory Report Ordering Provider Test Date Status MORENA CHAVIRA 09/14/2023 13:47:00 Final Observation Date Value Abnormality Reference (Units ) Status Acetaminophen 09/14/2023 13:47:00 <5.0 Below low normal 10.0-30.0 (ug/mL) Final Performing Location LABORATORY [facility] - [address] [place] [address]
--- OUTSIDE RECORDS SUMMARY | 2023-10-08 11:54 | External Medical Summary ---
Author Name Unknown Address Unknown Organization K1F:LABORATORY [facility] - [address] [facility] [address] Laboratory Report Ordering Provider Test Date Status MORENA CHAVIRA 09/14/2023 13:32:50 Final RAPID SURVEILLANCE Observation Date Value Abnormality Reference (Units ) Status SARS Coronavirus 2 09/14/2023 13:32:50 Negative N egative Final No SARS-CoV2 Coronavirus RNA detected by PCR (amplified probe).
This express test was developed and its performance characteristics determined by [employer]. It has not been cleared or approved [...] (RT-PCR) test, or a Centers for Disease Control-acceptable equivalent. The test is performed in a high complexity Clinical Laboratory Improvement Amendments-(CLIA) certified laboratory. The test is acceptable for SARS-CoV-2 diagnosis, surveillance, and travel within the [place] and to most countries. Please check with local testing authorities about requirements before travel.

The validation of bronchial specimens, tracheal aspirates, and sputum for this assay was developed and performance characteristics determined by [employer]. The validation of alternate specimen types has not been cleared or approved by the U.S. Food and Drug Administration (FDA). It has been determined that such clearance is not necessary. Influenza virus A RNA [Prese nce] in Specimen by NIKKO with probe detection 09/14/2023 13:32:50 Negative Negative Final No Influenza A RNA detected by PCR (amplified probe) Influenza virus B RNA [Prese nce] in Specimen by NIKKO with probe detection 09/14/2023 13:32:50 Negative Negative Final No Influenza B RNA detected by PCR (amplified probe) Respiratory syncytial virus RNA [Identifier] in Specimen by NIKKO with probe detection 09/14/2023 13:32:50 Negative Negative Final No Respiratory Syncytial Vir us RNA detected by PCR (amplified probe) Performing Location LAB[address]ATORY [address] [place] [address]
--- OUTSIDE RECORDS SUMMARY | 2023-10-08 11:54 | External Medical Summary ---
Author Name Unknown Address Unknown Organization K1F:LABORATORY [facility] - [address] [place] [address] Laboratory Report Ordering Provider Test Date Status MORENA CHAVIRA 09/14/2023 13:47:00 Final Observation Date Value Abnormality Reference (Units ) Status Ethanol 09/14/2023 13:47:00 Negative Negative Final Performing Location LABORATORY [facility] - [address] [place] [address]
--- OUTSIDE RECORDS SUMMARY | 2023-10-08 11:55 | External Medical Summary ---
Author Name Unknown Address Unknown Organization K1F:LABORATORY [facility] - [address] [place] [address] Laboratory Report Ordering Provider Test Date Status DORON GAO 09/07/2023 18:18:06 Final Observation Date Value Abnormality Reference (Units ) Status RBC, Urine 09/07/2023 18:18:06 10-19 Abnormal 0-2 (/HPF) Final WBC, Urine 09/07/2023 18:18:06 0-2 0-2 (/HPF) Final Bacteria [#/area] in Urine sediment by Microscopy high power field 09/07/2023 18:18:06 51-100 Abnormal 0-25 (/HPF) Final Performing Location LABORATORY [facility] - [address] [place] [address]
--- OUTSIDE RECORDS SUMMARY | 2023-10-08 11:55 | External Medical Summary ---
Author Name Unknown Address Unknown Organization K1F:LABORATORY [facility] - [address] [facility] [place] [address] Laboratory Report Ordering Provider Test Date Status DORON GAO 09/09/2023 22:10:00 Final Observation Date Value Abnormality Reference (Units ) Status BUN 09/09/2023 22:10:00 9 6-20 (mg/dL) Final Creatinine 09/09/2023 22:10:00 0.6 0.5-1.0 (mg/dL) Final Glomerular filtration rate/1.73 sq M.predicted [Volume Rate/Area] in Serum, Plasma or Blood by Creatinine-based formula (CKD-EPI) 09/09/2023 22:10:00 >90 >=60 (mL/min) Final eGFR is calculated based on the CKD-EPI 2020 equation SODIUM 09/09/2023 22:10:00 139 135-146 (m mol/L) Final Potassium 09/09/2023 22:10:00 3.8 3.5-5.1 (m mol/L) Final Cl 09/09/2023 22:10:00 104 98-107 (mm ol/L) Final CO2 09/09/2023 22:10:00 27 22-32 (mmo l/L) Final Anion gap 09/09/2023 22:10:00 8 7-15 (mmol /L) Final Glucose 09/09/2023 22:10:00 107 70-120 (mg /dL) Final Albumin 09/09/2023 22:10:00 3.9 3.8-5.0 (g /dL) Final AST (Aspartate aminotransferase) 09/09/2023 22:10:00 92 Above high normal 10-35 (U/L) Final Result may be falsely elevat ed due to hemolysis. Alk Phos 09/09/2023 22:10:00 167 Above high normal 35 -130 (U/L) Final Bilirubin, Total 09/09/2023 22:10:00 0.2 <=1 .2 (mg/dL) Final Calcium 09/09/2023 22:10:00 8.9 8.4-10.2 ( mg/dL) Final Protein 09/09/2023 22:10:00 7.5 6.0-8.3 (g /dL) Final ALT (Alanine aminotransferase) 09/09/2023 22:10:00 141 Above high normal 10-35 (U/L) Final Performing Location LABORATORY [facility] - [facility] [address] [place] [address]
--- OUTSIDE RECORDS SUMMARY | 2023-10-08 11:55 | External Medical Summary ---
Author Name Unknown Address Unknown Organization K1F:LABORATORY [facility] - [address] [place] [address] Laboratory Report Ordering Provider Test Date Status CECILIA LOZA 08/10/2023 21:57:00 Final Observation Date Value Abnormality Reference (Units ) Status TSH 08/10/2023 21:57:00 4.68 Above high normal 0. 27-4.20 (uIU/mL) Final Performing Location LABORATORY [facility] - [address] [place] [address]
--- OUTSIDE RECORDS SUMMARY | 2023-10-08 11:55 | External Medical Summary ---
Author Name Unknown Address Unknown Organization [id number] - [address] [place] [id number] Laboratory Report Ordering Provider Test Date Status DORON GAO 09/09/2023 22:10:00 Final Observation Date Value Abnormality Reference (Units ) Status Ethanol 09/09/2023 22:10:00 Negative Negative Final Performing Location [facility] - [address] [place] [id number]
--- OUTSIDE RECORDS SUMMARY | 2023-10-08 11:55 | External Medical Summary | Summary of Care ---
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 Number LABORATORY [address] [address] * (ABNORMAL) HEPATIC FUNCTION PANEL (08/10/2023 9:57 PM EST) [facility] Albumin 4.3 3.8 - 5.0 g/dL 08/11/2023 5:00 PM EST LABORATORY [facility] AST 91(H) 10 - 35 U/L 08/11/2023 5:00 PM EST LAB[facility]ORY [facility] Alkaline Phosphatase 158(H) 35 - 130 U/L 08/11/2023 5:00 PM EST LAB[facility]ATORY [facility] ALT 156(H) 10 - 35 U/L 08/11/2023 5:00 PM EST LABORATORY [facility] Bilirubin, Total 0.3 <=1.2 mg/dL 08/11/2023 5:00 PM EST LABORATORY [facility] Bilirubin, Direct <0.2 0.0 - 0.3 mg/dL 08/11/2023 5:00 PM EST LABORATORY [facility] Protein 7.9 6.0 - 8.3 g/dL 08/11/2023 5:00 PM EST LABORATORY [facility] Blood Venous blood specimen / Unknown Venipuncture / Unknown 08/10/2023 9:57 PM EST 08/10/2023 10:10 PM EST Rodriguez Sparks MD LAB BLOOD ORDERABLES LABORATORY [facility] [address] [place] [address] * (ABNORMAL) LIPID PANEL WITH DIRECT LDL IF TG IS HIGH (08/10/2023 9:57 PM EST) Triglycerides 235(H) <=174 mg/dL 08/11/2023 5:00 PM EST LABORATORY [facility] Comment: Triglyceride Reference Ranges (mg/dL): <150 Acceptable 150-174 Borderline high 175-499 High >=500 Very high Cholesterol 206(H) <200 mg/dL 08/11/2023 5:00 PM EST LABORATORY [facility] Comment: Total Cholesterol Reference Ranges (mg/dL): <200 Desirable 200-239 Borderline high >=240 High HDL Cholesterol 36(L) >49 mg/dL 5:00 PM EST LABORATORY [facility] Comment: HDL Cholesterol Reference Ranges (mg/dL): >=60 High (Desirable) <50 Low (Undesirable) For Females <40 Low (Undesirable) For Males Non-HDL Cholesterol 170(H) <=159 mg/dL 08/11/2023 5:00 PM EST LABORATORY [facility] Comment: Non-HDL Cholesterol Reference Range (mg/dL): <100 Target level for high risk ASCVD patient <130 Optimal for general population 130-159 Near optimal for general population 160-189 Borderline High 190-219 High >=220 Very High LDL Cholesterol 123 <=129 mg/dL 08/11/2023 5:00 PM EST LABORATORY [facility] Comment: LDL Cholesterol Reference Ranges (mg/dL): <70 Target level for high risk ASCVD patient <100 Optimal for general population 100-129 Near optimal for general population 130-159 Borderline high 160-189 High >=190 Very high Blood Venous blood specimen / Unknown Venipuncture / Unknown 08/10/2023 9:57 PM EST 08/10/2023 10:10 PM EST Alise Mo MD LAB BLOOD ORDERABLES Performing Organization Address City/[facility] Co de Phone Number LABORATORY [facility] [address] [place] [address] * (ABNORMAL) HEMOGLOBIN A1C (08/10/2023 9:57 PM EST) Hemoglobin A1C 5.7(H) 4.0 - 5.6 % 08/11/2023 3:26 PM EST LABORATORY [facility] Comment:The use of HbA1c to monitor glycemic status is based on normal hemoglobin and HbA composition. This test should not be used in patients with abnormal hemoglobin that affects the half life of the red blood cell or the in vivo glycation rates. Estimated Average Glucose 117 <126 mg/dL 08/11/2023 3:26 PM EST LABORATORY [facility] Blood Venous blood specimen / Unknown Venipuncture / Unknown 08/10/2023 9:57 PM EST 08/10/2023 10:10 PM EST Alise Mo MD LAB BLOOD ORDERABLES Performing Organization Address [facility] Co de Phone Number LABORATORY [facility] [address] [place] [address] * (ABNORMAL) TSH (08/10/2023 9:57 PM EST) TSH 4.68(H) 0.27 - 4.20 uIU/mL 08/11/2023 1:41 AM EST LABORATORY [facility] Blood Venous blood specimen / Unknown Venipuncture / Unknown 08/10/2023 9:57 PM EST 08/10/2023 10:10 PM EST Rodriguez Sparks MD LAB BLOOD ORDERABLES Performing Organization Address City/[facility]/ZIP Co de Phone Number LABORATORY [address] [phone] * (ABNORMAL) DIFFERENTIAL, AUTOMATED (08/10/2023 9:57 PM EST) WBC 11.49(H) 4.00 - 10.80 K/uL 08/10/2023 10:12 PM EST LABORATORY [facility] Neutrophils % 66.0 40.0 - 75.0 % 08/10/2023 10:12 PM EST LAB[facility]ATORY [facility] Lymphocytes % 25.4 18.0 - 42.0 % 08/10/2023 10:12 PM EST LAB[facility]ATORY [facility] Monocytes % 6.5 1.0 - 11.0 % 08/10/2023 10:12 PM EST LAB[facility]ATORY [facility] Eosinophils % 1.1 0.0 - 6.0 % 08/10/2023 10:12 PM EST LAB[facility]ATORY [facility] Basophils % 0.3 0.0 - 2.0 % 08/10/2023 10:12 PM EST LAB[facility]ATORY [facility] Immature Granulocytes % 0.7 0.0 - 2.0 % 08/10/2023 10:12 PM EST LABORATORY GL Absolute Neutrophils 7.58 1.80 - 7.70 K/uL 08/10/2023 10:12 PM EST LAB[facility]ATORY [facility] Absolute Lymphocytes 2.92 1.00 - 4.80 K/ul 08/10/2023 10:12 PM EST LAB[facility]ATORY [facility] Absolute Monocytes 0.75 0.00 - 1.10 K/uL 08/10/2023 10:12 PM EST LABORATORY [facility] Absolute Eosinophils 0.13 0.00 - 0.70 K/uL 08/10/2023 10:12 PM EST LAB[facility]ATORY [facility] Absolute Basophils 0.03 0.00 - 0.20 K/uL 08/10/2023 10:12 PM EST LABORATORY GL Absolute Immature Granulocytes 0.08 0.00 - 0.20 K/uL 08/10/2023 10:12 PM EST LAB[facility]ATORY [facility] Blood Venous blood specimen / Unknown Venipuncture / Unknown 08/10/2023 9:57 PM EST 08/10/2023 10:10 PM EST Jame Mckeon DO LAB BLOOD [place] [facility] Organization Address City/State/ZIP Co de Phone Number LABORATORY [address] [address] * (ABNORMAL) CBC (08/10/2023 9:57 PM EST) WBC 11.49(H) 4.00 - 10.80 K/uL 08/10/2023 10:12 PM EST LABORATORY [facility] RBC 4.79 3.85 - 5.15 M/uL 08/10/2023 10:12 PM EST LABORATORY GL HGB 14.0 12.0 - 15.3 g/dL 08/10/2023 10:12 PM EST LABORATORY GL HCT 43.6 36.0 - 45.2 % 08/10/2023 10:12 PM EST LABORATORY GL MCV 91.0 81.5 - 97.5 fL 08/10/2023 10:12 PM EST LABORATORY GL MCH 29.2 27.0 - 34.0 pg 08/10/2023 10:12 PM EST LABORATORY [facility] MCHC 32.1 32.0 - 36.0 g/dL 08/10/2023 10:12 PM EST LABORATORY [facility] RDW 13.4 11.5 - 15.5 % 08/10/2023 10:12 PM EST LABORATORY [facility] PLT 289 140 - 400 K/uL 08/10/2023 10:12 PM EST LABORATORY [facility] MPV 8.7 6.6 - 11.1 fL 08/10/2023 10:12 PM EST LABORATORY [facility] nRBCs 0 <=0 /100 WBCs 08/10/2023 10:12 PM EST LABORATORY [facility] Blood Venous blood specimen / Unknown Venipuncture / Unknown 08/10/2023 9:57 PM EST 08/10/2023 10:10 PM EST Jame Mckeon DO LAB BLOOD [place] LABORATORY [facility] [address] [place] [address] * BETA-HCG, QUANTITATIVE (08/10/2023 9:57 PM EST) Beta-HCG, Quantitative <0.1 <=1.0 mIU/mL 08/10/2023 10:35 PM EST LABORATORY GL Blood Venous blood specimen / Unknown Venipuncture / Unknown 08/10/2023 9:57 PM EST 08/10/2023 10:10 PM EST [facility] LABORATORY [facility] - 08/10/2023 10:35 PM EST hCG can serve as a screening assay for . However, early may not give a positive hCG test result. In addition, some non- women may have a hCG result slightly higher than the reference limit. Careful interpretation of the hCG with clinical history is required to determine whether the patient may be . Jame Mckeon DO LAB BLOOD ORDE ZHAO LABORATORY [facility] [address] [place], [place] [id number] * INFLUENZA A/B RSV SARS-COV2,PCR (08/10/2023 9:57 PM EST) SARS-CoV-2 (COVID-19) Result Negative Negative 08/10/2023 10:52 PM EST LABORATORY [facility] Comment: No SARS-CoV2 Coronavirus RNA detected by PCR (amplified probe). This express test was developed and its performance characteristics determined by [employer]. It has not been cleared or approved [...] was developed and performance characteristics determined by [employer]. The validation of alternate specimen types has not been cleared or approved by the U.S. Food and Drug Administration (FDA). It has been determined that such clearance is not necessary. Influenza A PCR Result Negative Negative 08/10/2023 10:52 PM EST LABORATORY [facility] Comment:No Influenza A RNA d etected by PCR (amplified probe) Influenza B PCR Result Negative Negative 08/10/2023 10:52 PM EST LABORATORY [facility] Comment:No Influenza B RNA d etected by PCR (amplified probe) RSV PCR Result Negative Negative 08/10/2023 10:52 PM EST LABORATORY [facility] Comment:No Respiratory Syncy tial Virus RNA detected by PCR (amplified probe) Upper Respiratory Mid-turbinate nasal swab / Unknown Non-blood Collection / Unknown 08/10/2023 9:57 PM EST 08/10/2023 10:05 PM EST Jame Mckeon DO LAB MICRO - GE NERAL ORDERABLES Performing Organization Address [facility]/ZIP Co de Phone Number LABORATORY [address] [address] * (ABNORMAL) SALICYLATES LEVEL (08/10/2023 9:57 PM EST) Salicylates Level <0.3(L) 5.0 - 30.0 mg/dL 08/10/2023 10:29 PM EST LABORATORY [facility] Blood Venous blood specimen / Unknown Venipuncture / Unknown 08/10/2023 9:57 PM EST 08/10/2023 10:10 PM EST Jame Mckeon LAB BLOOD ORDE RABLES Performing Organization Address City/[facility]/ZIP Co de Phone Number LABORATORY [address] [phone] * (ABNORMAL) ACETAMINOPHEN LEVEL (08/10/2023 9:57 PM EST) Acetaminophen Level <5.0(L) 10.0 - 30.0 ug/mL 08/10/2023 10:29 PM EST LABORATORY [facility] Blood Venous blood specimen / Unknown Venipuncture / Unknown 08/10/2023 9:57 PM EST 08/10/2023 10:10 PM EST Jame France Linda DO LAB BLOOD VITALIYMorena ZHAO LABORATORY [facility] [address] [place] [address] * (ABNORMAL) COMPREHENSIVE METABOLIC PANEL (08/10/2023 9:57 PM EST) BUN 12 6 - 20 mg/dL 08/10/2023 10:29 PM EST LABORATORY [facility] Creatinine 0.6 0.5 - 1.0 mg/dL 08/10/2023 10:29 PM EST LABORATORY [facility] Estimated Glomerular Filtration Rate >90 >=60 mL/min 08/10/2023 10:29 PM EST LABORATORY [facility] Comment:eGFR is calculated b ased on the CKD-EPI 2020 equation Sodium 136 135 - 146 mmol/L 08/10/2023 10:29 PM EST LABORATORY [facility] Potassium 4.0 3.5 - 5.1 mmol/L 08/10/2023 10:29 PM EST LAB[facility]ATORY [facility] Chloride 100 98 - 107 mmol/L 08/10/2023 10:29 PM EST LAB[facility]ATORY [facility] CO2 27 22 - 32 mmol/L 08/10/2023 10:29 PM EST LAB[facility]ATORY [facility] Anion Gap 9 7 - 15 mmol/L 08/10/2023 10:29 PM EST LAB[facility]ATORY [facility] Glucose 105 70 - 120 mg/dL 08/10/2023 10:29 PM EST LAB[facility]ATORY [facility] Albumin 4.1 3.8 - 5.0 g/dL 08/10/2023 10:29 PM EST LAB[facility]ATORY [facility] AST 85(H) 10 - 35 U/L 08/10/2023 10:29 PM EST LAB[facility]ATORY [facility] Alkaline Phosphatase 169(H) 35 - 130 U/L 08/10/2023 10:29 PM EST LAB[facility]ATORY [facility] Bilirubin, Total 0.3 <=1.2 mg/dL 08/10/2023 10:29 PM EST LABORATORY [facility] Calcium 9.0 8.4 - 10.2 mg/dL 08/10/2023 10:29 PM EST LABORATORY [facility] Protein 7.9 6.0 - 8.3 g/dL 08/10/2023 10:29 PM EST LABORATORY [facility] ALT 144(H) 10 - 35 U/L 08/10/2023 10:29 PM EST LABORATORY GL Blood Venous blood specimen / Unknown Venipuncture / Unknown 08/10/2023 9:57 PM EST 08/10/2023 10:10 PM EST Jame Mckeon DO LAB BLOOD ORDMorena [place]UR[place]ILL Performing Organization Address [facility] Co de Phone Number LABORATORY [address] [address] * ETHANOL, MEDICAL (08/10/2023 9:57 PM EST) ETHANOL, MEDICAL Negative Negative 08/10/2023 10:29 PM EST LABORATORY [facility] Blood Venous blood specimen / Unknown Venipuncture / Unknown 08/10/2023 9:57 PM EST 08/10/2023 10:10 PM EST Jame Mckeon LAB BLOOD ORDMorena CHURCHILL Performing Organization Address [facility] de Phone Number LABORATORY [address] [address] * EKG (08/10/2023 9:53 PM EST) 08/10/2023 9:53 PM EST Narrative Procedure Note Esteban Gallego DO - 08/10/2023 9:53 PM EST REASON FOR STUDY: [facility] EVAL CONCLUSIONS: Sinus tachycardia Otherwise normal ECG When compared with ECG of 30-DEC-2022 02:40, No significant change was found Ventricular Rate: 104 Atrial Rate: 104 WI Interval: 148 QRS Duration: 86 QT/QTc: 350/460 ms P-R-T [place]: 34 : 21 : 40 degrees Jame Mckeon DO EKG Performing Organization Address [facility] de Phone Number [facility] documented in this encounter Visit Diagnoses Diagnosis Suicide attempt, initial encounter (HCC)- Primary Self-mutilation Unspecified nonpsychotic mental disorder Cannabis use disorder Flashbacks (HCC) Other specified drug-induced mental disorder JAMA (nonalcoholic steatohepatitis) Other chronic nonalcoholic liver disease Depression, unspecified Bipolar affective disorder, currently depressed, moderate (HCC) Bipolar I disorder, most recent episode (or current) depressed, moderate Obesity, morbid (more than 100 lbs over ideal weight or BMI > 40) (HCC) Morbid obesity Anxiety disorder Anxiety state, unspecified Bipolar affective disorder, currently depressed, mild (HCC) Bipolar I disorder, most recent episode (or current) depressed, mild documented in this encounter Administered Medications Inactive Administered Medications - up to 3 most recent administrations Medication Order MAR Action Action Date Dose Rate Site Acetaminophen (Tylenol) tab 325 mg 325 mg, Oral, Q4H PRN Pain, Mild, Starting on Wed08/10/23 at 2328, Until Wed08/13/23 at 1709, Maximum of 4 grams (4000 mg) per day. Acetaminophen (Tylenol) tab 650 mg 650 mg, Oral, Q6H PRN Pain, Moderate, Fever >38C(100.5F), Starting on Wed08/10/23 at 2328, Until Wed08/13/23 at 1709, Maximum of 4 grams (4000 mg) per day. Given 08/12/2023 5:17 PM EST 650 mg Acetaminophen (Tylenol) tab 975 mg 975 mg, Oral, Q6H PRN Pain, Severe, Starting on Wed08/10/23 at 2328, Until Wed08/13/23 at 1709, Maximum of 4 grams (4000 mg) per day. Given 08/11/2023 12:29 AM EST 975 mg ARIPiprazole (Abilify) tab 2 mg 2 mg, Oral, HS, First dose on Wed08/11/23 at 2200, Until Discontinued Given 08/12/2023 8:37 PM EST 2 mg Given 08/11/2023 8:32 PM EST 2 mg cholecalciferol (VIT D3) (Vitamin D3) tab 2,000 Units 2,000 Units, Oral, Daily(AM), First dose on Wed08/12/23 at 0900, Until Discontinued, NOTE: 1000 units = 25 mcg Given 08/13/2023 7:[address] 2,000 Units Given 08/12/2023 8:53 AM EST 2,000 Units Docusate Sodium (Colace) cap 100 mg 100 mg, Oral, BID (.AM/PM), First dose on Wed08/11/23 at 2100, Until Discontinued, For oral administration ONLY, if route of administration is other than oral and alternative product must be ordered. Given 08/13/2023 7:45 AM EST 100 mg Given 08/12/2023 8:37 PM EST 100 mg Given 08/12/2023 8:53 AM EST 100 mg Escitalopram Oxalate (Lexapro) 5 mg tab 5 mg, Oral, Daily(AM), First dose on Wed08/11/23 at 1030, Until Discontinued Given 08/13/2023 7:45 AM EST 5 mg Given 08/12/2023 8:53 AM EST 5 mg Given 08/11/2023 12:33 PM EST 5 mg Haloperidol (Haldol) tab 5 mg 5 mg, Oral, Q6H PRN Other, Psychosis, Starting on Wed08/10/23 at 2328, Until Wed08/13/23 at 1709 Haloperidol Lactate (Haldol) 5 MG/ML inj 5 mg 5 mg, Intramuscular, Q6H PRN Other, Psychosis, unable to take PO, Starting on Wed08/10/23 at 2328, Until Wed08/13/23 at 1709 home medication stored in pharmacy Daily(AM), First dose on Wed08/11/23 at 0900, Until Discontinued, Routine, when the patient is ready for discharge contact pharmacy house antacid (Mi-Acid II) oral susp 15 mL 15 mL, Oral, Q4H PRN Indigestion, Nausea, Starting on Wed08/10/23 at 2326, Until Wed08/13/23 at 1709, SHAKE WELL Given 08/12/2023 11:17 AM EST 15 mL hydrOXYzine HCl tab 25 mg 25 mg, Oral, TID PRN Anxiety, Starting on Wed08/11/23 at 0948, Until Wed08/13/23 at 1709 Given 08/11/2023 8:33 PM EST 25 mg Given 08/11/2023 2:33 PM EST 25 mg LORazepam (Ativan) tab 1 mg 1 mg, Oral, Q6H PRN Agitation, Starting on Wed08/10/23 at 2328, Until Wed08/13/23 at 1709 LORAzepam (Ativan) tab 2 mg 2 mg, Oral, Q6H PRN Agitation, Starting on Wed08/10/23 at 2328, Until Wed08/13/23 at 1709 milk of magnesia (Mom) oral susp 30 mL 30 mL, Oral, DAILY PRN Constipation, Starting on Wed08/10/23 at 2326, Until Wed08/13/23 at 1709 prazosin (Minipress) cap 2 mg 2 mg, Oral, QHS, First dose on Wed08/11/23 at 2200, Until Discontinued, Hold for SBP below 100 and notify service if dose is held Given 08/12/2023 8:37 PM EST 2 mg Given 08/11/2023 8:32 PM EST 2 mg traZODone (Desyrel) tab 50 mg 50 mg, Oral, QHS PRN MRX1 Insomnia, Starting on Wed08/10/23 at 2329, Until Wed08/13/23 at 1709, May repeat one dose if not effective within 60 minutes documented in this encounter Active and Recently Administered Medications Times are shown in EST. Scheduled Medication Order 08/11/2023 08/12/2023 08/13/2023 ARIPiprazole (Abilify) tab 2 mg 2 mg, Oral, HS, First dose on Wed08/11/23 at 2200, Until Discontinued 2031 (Given - Provider: Moriah Hernandez RN) 2036 (Given - Provider: Capri Rutherford, LIEN) cholecalciferol (VIT D3) (Vitamin D3) tab 2,000 Units 2,000 Units, Oral, Daily(AM), First dose on Wed08/12/23 at 0900, Until Discontinued, NOTE: 1000 units = 25 mcg 0853 (Given - Provider: Cj Borja RN) 0745 (Given - Provider: Carlos Banuelos, LIEN) Docusate Sodium (Colace) cap 100 mg 100 mg, Oral, BID (.AM/PM), First dose on Wed08/11/23 at 2100, Until Discontinued, For oral administration ONLY, if route of administration is other than oral and alternative product must be ordered. 2031 (Given - Provider: Moriah Hernandez RN) 0853 (Given - Provider: Cj Borja RN)2036 (Given - Provider: Capri Rutherford, LIEN) 0745 (Given - Provider: Carlos Banuelos, LIEN) Escitalopram Oxalate (Lexapro) 5 mg tab 5 mg, Oral, Daily(AM), First dose on Wed08/11/23 at 1030, Until Discontinued 1233 (Given - Provider: Carlos Banuelos RN - Comment: one tab wasted, missing from packing and laying loose in the omni cell drawer.) 0853 (Given - Provider: Cj Borja, RN) 0745 (Given - Provider: Carlos Banuelos, RN) home medication stored in pharmacy Daily(AM), First dose on Wed08/11/23 at 0900, Until Discontinued, Routine, when the patient is ready for discharge contact pharmacy 0900 (Order Check Addressed - Provider: Carlos Banuelos RN) 0900 (Order Check Addressed - Provider: Cj Borja, LIEN) 0900 (Order Check Addressed - Provider: Carlos Banuelos RN) prazosin (Minipress) cap 2 mg 2 mg, Oral, QHS, First dose on Wed08/11/23 at 2200, Until Discontinued, Hold for SBP below 100 and notify service if dose is held 2031 (Given - Provider: Moriah Hernandez RN) 2036 (Given - Provider: Capri Rutherford RN) PRN Medication Order 08/11/2023 08/12/2023 08/13/2023 Acetaminophen (Tylenol) tab 325 mg(Linked Group 1) 325 mg, Oral, Q4H PRN Pain, Mild, Starting on Wed08/10/23 at 2328, Until Wed08/13/23 at 1709, Maximum of 4 grams (4000 mg) per day. 0029 (See Alternative - Provider: Denise Cabello RN) 1716 (See Alternative - Provider: Charleen Pennington, LIEN) Acetaminophen (Tylenol) tab 650 mg(Linked Group 1) 650 mg, Oral, Q6H PRN Pain, Moderate, Fever >38C(100.5F), Starting on Wed08/10/23 at 2328, Until Wed08/13/23 at 1709, Maximum of 4 grams (4000 mg) per day. 002 (See Alternative - Provider: Denise Cabello RN) 1716 (Given - Provider: Charleen Pennington, RN) Acetaminophen (Tylenol) tab 975 mg(Linked Group 1) 975 mg, Oral, Q6H PRN Pain, Severe, Starting on Wed08/10/23 at 2328, Until Wed08/13/23 at 1709, Maximum of 4 grams (4000 mg) per day. 0029 (Given - Provider: Denise Cabello, RN) 1717 (See Alternative - Provider: Charleen Pennington, LIEN) Haloperidol (Haldol) tab 5 mg(Linked Group 2) 5 mg, Oral, Q6H PRN Other, Psychosis, Starting on Wed08/10/23 at 2328, Until Wed08/13/23 at 1709 Haloperidol Lactate (Haldol) 5 MG/ML inj 5 mg(Linked Group 2) 5 mg, Intramuscular, Q6H PRN Other, Psychosis, unable to take PO, Starting on Wed08/10/23 at 2328, Until Wed08/13/23 at 1709 house antacid (Mi-Acid II) oral susp 15 mL 15 mL, Oral, Q4H PRN Indigestion, Nausea, Starting on Wed08/10/23 at 2326, Until Wed08/13/23 at 1709, SHAKE WELL 1117 (Given - Provider: Cj Borja RN) hydrOXYzine HCl tab 25 mg 25 mg, Oral, TID PRN Anxiety, Starting on Wed08/11/23 at 0948, Until Wed08/13/23 at 1709 1433 (Given - Provider: Carlos Banuelos, LIEN)2033 (Given - Provider: Moriah Hernandez RN) LORazepam (Ativan) tab 1 mg(Linked Group 3) 1 mg, Oral, Q6H PRN Agitation, Starting on Wed08/10/23 at 2328, Until Wed08/13/23 at 1709 LORAzepam (Ativan) tab 2 mg(Linked Group 3) 2 mg, Oral, Q6H PRN Agitation, Starting on Wed08/10/23 at 2328, Until Wed08/13/23 at 1709 milk of magnesia (Mom) oral susp 30 mL 30 mL, Oral, DAILY PRN Constipation, Starting on Wed08/10/23 at 2326, Until Wed08/13/23 at 1709 traZODone (Desyrel) tab 50 mg 50 mg, Oral, QHS PRN MRX1 Insomnia, Starting on Wed08/10/23 at 2329, Until Wed08/13/23 at 1709, May repeat one dose if not effective within 60 minutes Linked Groups Order Group 1: Acetaminophen (Tylenol) tab 325 mgJump to med 325 mg, Oral, Q4H PRN Pain, Mild, Starting on Wed08/10/23 at 2328, Until Wed08/13/23 at 1709, Maximum of 4 grams (4000 mg) per day. Or Acetaminophen (Tylenol) tab 650 mgJump to med 650 mg, Oral, Q6H PRN Pain, Moderate, Fever >38C(100.5F), Starting on Wed08/10/23 at 2328, Until Wed08/13/23 at 1709, Maximum of 4 grams (4000 mg) per day. Or Acetaminophen (Tylenol) tab 975 mgJump to med 975 mg, Oral, Q6H PRN Pain, Severe, Starting on Wed08/10/23 at 2328, Until Wed08/13/23 at 1709, Maximum of 4 grams (4000 mg) per day. Group 2: Haloperidol (Haldol) tab 5 mgJump to med 5 mg, Oral, Q6H PRN Other, Psychosis, Starting on Wed08/10/23 at 2328, Until Wed08/13/23 at 1709 Or Haloperidol Lactate (Haldol) 5 MG/ML inj 5 mgJump to med 5 mg, Intramuscular, Q6H PRN Other, Psychosis, unable to take PO, Starting on Wed08/10/23 at 2328, Until Wed08/13/23 at 1709 Group 3: LORazepam (Ativan) tab 1 mgJump to med 1 mg, Oral, Q6H PRN Agitation, Starting on Wed08/10/23 at 2328, Until Wed08/13/23 at 1709 Or LORAzepam (Ativan) tab 2 mgJump to med 2 mg, Oral, Q6H PRN Agitation, Starting on Wed08/10/23 at 2328, Until Wed08/13/23 at 1709 documented in this encounter Advance Directives Latest [...] the patient have Health Care Power of Radial Drill Press Operator? No Code Status History Code Status Date Activated Date Inactivated Comments Full Code 06/04/2022 12:26 AM 06/17/2022 2:39 PM Th is order reflects the patients wishes and were consensually agreed upon. Question Answer Comments Discussion of Advance Directives occurred with: Patient Does the patient have a Living Will? No Does the patient have Health Care Power of Radial Drill Press Operator? No Full Code 05/02/2022 11:32 PM 05/09/2022 1:15 PM This order reflects the patients wishes and were consensually agreed upon. Question Answer Comments Discussion of Advance Directives occurred with: Patient Does the patient have a Living Will? No Does the patient have Health Care Power of Radial Drill Press Operator? No Full Code 03/05/2022 5:38 AM 03/09/2022 4:16 PM This order reflects the patients wishes and were consensually agreed upon. Question Answer Comments Discussion of Advance Directives occurred with: Patient Does the patient have a Living Will? No Does the patient have Health Care Power of Radial Drill Press Operator? No Full Code 01/23/2022 1:50 AM 02/03/2022 5:03 PM This o rder reflects the patients wishes and were consensually agreed upon. Question Answer Comments Discussion of Advance Directives occurred with: Patient Does the patient have a Living Will? No Does the patient have Health Care Power of Radial Drill Press Operator? No Care Teams University Partnership Rep Relationship Specialty Start Date End Date Olinda Wang DO [address] [facility] [place] [address] PCP - General Family Medicine 08/09/23 documented as of this encounter
--- OUTSIDE RECORDS SUMMARY | 2023-10-08 11:55 | External Medical Summary ---
Author Name Unknown Address Unknown Organization K1F:[facility] - [address] [facility] [address] Laboratory Report Ordering Provider Test Date Status SIMADORON 09/09/2023 22:10:00 Final hCG can serve as a screening [...] +Beta subunit [Units/volume] in Serum or Plasma 09/09/2023 22:10:00 <0.1 <=1.0 (mIU/mL) Final Performing Location [facility] [address] [facility] [address]
--- OUTSIDE RECORDS SUMMARY | 2023-10-08 11:55 | External Medical Summary | Summary of Care ---
Author Name Unknown Organization [facility] Address [address] [address] Phone [phone] Care Team Providers Care Cancer Center Director Name Role Phone Olinda Wang DO Primary Care Provider + Reason for Visit * Reason Onset Date Comments Encounter Created in Error 09/02/2023 Encounter Details Date Type Department Care Team (Late st Contact Info) Description 09/02/2023 Telephone Podiatry, [facility] [address] [facility] [place] [id number] Rosemarie Hall DPM [address] [facility] [place] [address] Encounter Created in Error Allergies Active Allergy Reactions Criticality Noted Date Comments Aspirin Hives 11/18/2018 Apparently her mother told her she is allergic to it documented as of this encounter (statuses as of 09/02/2023) Medications Medication Sig Dispensed Refills Start Date [...] as of this encounter (statuses as of 09/02/2023) Active Problems Problem Noted Date Diagnosed Date [...] wi thout status migrainosus, not intractable 09/12/2019 JAAM (nonalcoholic steatohepatitis) 04/13/2019 Hepatic steatosis 03/06/2019 Tobacco use disorder 01/04/2019 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 No Code Status History Code Status Date Activated Date Inactivated Comments Full Code 06/04/2022 12:26 AM 06/17/2022 2:39 PM Th is order reflects the patients wishes and were consensually agreed upon. Question Answer Comments Discussion of Advance Directives occurred with: Patient Does the patient have a Living Will? No Does the patient have Health Care Power of Head Mva Reactor Operator? No Full Code 05/02/2022 11:32 PM 05/09/2022 1:15 PM This order reflects the patients wishes and were consensually agreed upon. Question Answer Comments Discussion of Advance Directives occurred with: Patient Does the patient have a Living Will? No Does the patient have Health Care Power of Head Mva Reactor Operator? No Full Code 03/05/2022 5:38 AM 03/09/2022 4:16 PM This order reflects the patients wishes and were consensually agreed upon. Question Answer Comments Discussion of Advance Directives occurred with: Patient Does the patient have a Living Will? No Does the patient have Health Care Power of Head Mva Reactor Operator? No Full Code 01/23/2022 1:50 AM 02/03/2022 5:03 PM This o rder reflects the patients wishes and were consensually agreed upon. Question Answer Comments Discussion of Advance Directives occurred with: Patient Does the patient have a Living Will? No Does the patient have Health Care Power of Head Mva Reactor Operator? No Care Teams Cancer Center Director Relationship Specialty Start Date End Date Olinda Wang DO [address] [place], [place] [phone] PCP - General Family Medicine 08/09/23 documented as of this encounter
--- OUTSIDE RECORDS SUMMARY | 2023-10-08 11:55 | External Medical Summary ---
Author Name Unknown Address Unknown Organization K1F:[facility] - [address] [place] [address] [facility] [address] Laboratory Report Ordering Provider Test Date Status DORON GAO 09/09/2023 22:18:55 Final Cutoff Concentrations:
Drug Level
Amphetamines 500 [...] Reference (Units ) Status Amphetamines, Urine screen 09/09/2023 22:18:55 Negative Negative Final Benzodiazepines, Urine screen 09/09/2023 22:18:55 Negative Negative Final Cannabinoids, Urine screen 09/09/2023 22:18:55 Negative Negative Final Cocaine Metabolite, Urine screen 09/09/2023 22:18:55 Negative Negative Final fentaNYL [Presence] in Urine by Screen method 09/09/2023 22:18:55 Negative Negative Final HYDROcodone [Presence] in Urine by Screen method 09/09/2023 22:18:55 Negative Negative Final 0-Ulauhmanju-4,5-Dimeth yl-3,3-Diphenylpyrrolid ine (EDDP) [Presence] in Urine 09/09/2023 22:18:55 Negative Negative Final Opiates, Urine screen 09/09/2023 22:18:55 Negative Negative Final oxyCODONE [Presence] in Urine by Screen method 09/09/2023 22:18:55 Negative Negative Final Performing Location [facility] - [address] [place] [address]
--- OUTSIDE RECORDS SUMMARY | 2023-10-08 11:55 | External Medical Summary | Summary of Care ---
Author Name Unknown Organization [facility] Address [address] [place] [address] Phone [phone] Care Team Providers Care Pca Name Role Phone Olinda Wang DO Primary Care Provider + Reason for Visit * Reason Comments Vomiting * Auth/Cert Specialty Diagnoses / Procedures Referred By Jordyn cueva Referred To Contact Referral ID Status Reason Start Date Expiration Date Visits Re quested Visits Authorized [id number] Encounter Details Date Type Department Care Team ([facility] st Contact Info) Description 09/07/2023 6:36 PM EST - 09/07/2023 6:37 PM EST Emergency [facility] ([facility]) [address] [place] [address] Discharge Disposition: Left ED Without Being Seen Allergies Active Allergy Reactions Criticality Noted Date Comments Aspirin Hives 11/18/2018 Apparently her mother told her she is allergic to it documented as of this encounter (statuses as of 09/08/2023) Medications Medication Sig Dispensed Refills Start Date [...] as of this encounter (statuses as of 09/08/2023) Active Problems Problem Noted Date Diagnosed Date [...] as of this encounter (statuses as of 09/08/2023) Resolved Problems Problem Noted Date Diagnosed Date [...] as of this encounter (statuses as of 09/08/2023) Immunizations Name Administration Dates Next Due HPV [...] Sign Reading Time Taken Comments Blood Pressure 132/85 09/07/2023 5:43 PM EST Pulse 113 09/07/2023 5:43 PM EST Temperature 36.7 C (98.1 F) 09/07/2023 5:43 PM ES T Respiratory Rate 20 09/07/2023 5:43 PM EST Oxygen Saturation 96% 09/07/2023 5:43 PM EST Inhaled Oxygen Concentration - - Weight 127.6 kg (281 lb 3.2 oz) 09/07/2023 5:43 PM EST Height 160 cm (5' 3") 09/07/2023 5:43 PM EST Body Mass Index 49.81 09/07/2023 5:43 PM EST documented in this encounter Functional [...] No 10/28/2020 documented as of this encounter ED Notes * Jame Mckeon DO - 09/07/2023 6:37 PM EST Pt LWBS No signs UTI, tachy I have reviewed the clinical lab, radiology, and other medical tests that were ordered during this encounter (see all). * Paulette Hatch RN - 09/07/2023 5:43 PM EST Pt states that she has had diarrhea and vomiting yesterday. Pt denies fever/chills. Pt reports thatshe feels lightheaded. documented in this encounter Miscellaneous Notes * ED Communications Technologist Note - Anna Armstrong RN - 09/07/2023 6:35 PM EST Informed by ED heater engineer helper that pt was leaving from the waiting room documented in this encounter Plan of Treatment [...] Procedure Name Priority Date/Time Associated Diagnosis Comments MICROSCOPIC EXAM, URINE STAT 09/07/2023 6:18 PM EST URINALYSIS, REFLEX TO MICROSCOPIC STAT 09/07/2023 6:18 PM EST documented in this encounter Results * (ABNORMAL) MICROSCOPIC EXAM, URINE (09/07/2023 6:18 PM EST) RBC, Urine 10-19(A) 0 - 2 /HPF 09/07/2023 6:59 PM EST [facility] WBC, Urine 0-2 0 - 2 /HPF 09/07/2023 6:59 PM EST [facility] Bacteria, Urine 51-100(A) 0 - 25 /HPF 09/07/2023 6:59 PM EST [facility] Urine Urine specimen obtained by clean catch procedure / Unknown Non-blood Collection / Unknown 09/07/2023 6:18 PM EST 09/07/2023 6:22 PM EST Jame Mckeon DO LAB [facility] [address] [address] * (ABNORMAL) URINALYSIS, REFLEX TO MICROSCOPIC (09/07/2023 6:18 PM EST) Color, Urine Yellow Light Yellow, Yellow, Dark Yellow 09/07/2023 6:42 PM EST [facility] Clarity, Urine Clear Clear 09/07/2023 6:42 PM EST [facility] Glucose, Urine Negative Negative mg/dL 09/07/2023 6:42 PM EST [facility] Bilirubin, Urine Negative Negative 09/07/2023 6:42 PM EST [facility] Ketone, Urine Negative Negative mg/dL 09/07/2023 6:42 PM EST [facility] Specific [place], Urine 1.024 1.003 - 1.030 09/07/2023 6:42 PM EST [facility] Blood, Urine Large(A) Negative 09/07/2023 6:42 PM EST [facility] pH, Urine 5.5 5.0 - 7.5 Units 09/07/2023 6:42 PM EST [facility] Protein, Urine Negative Negative mg/dL 09/07/2023 6:42 PM EST [facility] Urobilinogen, Urine 0.2 0.2, 1.0 mg/dL 09/07/2023 6:42 PM EST [facility] Nitrite, Urine Negative Negative 09/07/2023 6:42 PM EST [facility] Esterase, Urine Negative Negative 09/07/2023 6:42 PM EST [facility] Urine Urine specimen obtained by clean catch procedure / Unknown Non-blood Collection / Unknown 09/07/2023 6:18 PM EST 09/07/2023 6:22 PM EST Jame Mckeon DO LAB URINE [facility] Organization Address City/State/[facility] Co de Phone Number LABORATORY [address] [phone] documented in this encounter Advance Directives Latest [...] the patient have Health Care Power of Rice Cleaning Machine Tender? No Code Status History Code Status Date Activated Date Inactivated Comments Full Code 06/04/2022 12:26 AM 06/17/2022 2:39 PM Th is order reflects the patients wishes and were consensually agreed upon. Question Answer Comments Discussion of Advance Directives occurred with: Patient Does the patient have a Living Will? No Does the patient have Health Care Power of Rice Cleaning Machine Tender? No Full Code 05/02/2022 11:32 PM 05/09/2022 1:15 PM This order reflects the patients wishes and were consensually agreed upon. Question Answer Comments Discussion of Advance Directives occurred with: Patient Does the patient have a Living Will? No Does the patient have Health Care Power of Rice Cleaning Machine Tender? No Full Code 03/05/2022 5:38 AM 03/09/2022 4:16 PM This order reflects the patients wishes and were consensually agreed upon. Question Answer Comments Discussion of Advance Directives occurred with: Patient Does the patient have a Living Will? No Does the patient have Health Care Power of Rice Cleaning Machine Tender? No Full Code 01/23/2022 1:50 AM 02/03/2022 5:03 PM This o rder reflects the patients wishes and were consensually agreed upon. Question Answer Comments Discussion of Advance Directives occurred with: Patient Does the patient have a Living Will? No Does the patient have Health Care Power of Rice Cleaning Machine Tender? No Care Teams Pca Relationship Specialty Start Date End Date Olinda Wang DO [address] [place] [address] PCP - General Family Medicine 08/09/23 documented as of this encounter
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
--- OUTSIDE RECORDS SUMMARY | 2023-10-08 11:55 | External Medical Summary ---
Author Name Unknown Address Unknown Organization K1F:LABORATORY [address] [address] Laboratory Report Ordering Provider Test Date Status DORON GAO 09/09/2023 22:18:55 Final RAPID SURVEILLANCE Observation Date Value Abnormality Reference (Units ) Status SARS Coronavirus 2 09/09/2023 22:18:55 Negative N egative Final No SARS-CoV2 Coronavirus RNA detected by PCR (amplified probe).
This express test was developed and its performance characteristics determined by [facility]. It has not been cleared or approved [...] was developed and performance characteristics determined by [facility]. The validation of alternate specimen types has not been cleared or approved by the U.S. Food and Drug Administration (FDA). It has been determined that such clearance is not necessary. Influenza virus A RNA [Prese nce] in Specimen by NIKKO with probe detection 09/09/2023 22:18:55 Negative Negative Final No Influenza A RNA detected by PCR (amplified probe) Influenza virus B RNA [Prese nce] in Specimen by NIKKO with probe detection 09/09/2023 22:18:55 Negative Negative Final No Influenza B RNA detected by PCR (amplified probe) Respiratory syncytial virus RNA [Identifier] in Specimen by NIKKO with probe detection 09/09/2023 22:18:55 Negative Negative Final No Respiratory Syncytial Vir us RNA detected by PCR (amplified probe) Performing Location [facility]AT[facility] [address] [place] [address]
--- OUTSIDE RECORDS SUMMARY | 2023-10-08 11:55 | External Medical Summary ---
Author Name Unknown Address Unknown Organization K1F:LAB[facility]ATORY [facility] - [address] [place] [address] Laboratory Report Ordering Provider Test Date Status DORON GAO 09/09/2023 22:10:00 Final Observation Date Value Abnormality Reference (Units ) Status WBC, Total 09/09/2023 22:10:00 8.66 4.00-10.80 (K/uL) Final RBC 09/09/2023 22:10:00 4.89 3.85-5.15 (M/uL) Final Hemoglobin 09/09/2023 22:10:00 14.6 12.0-15.3 (g/dL) Final HCT 09/09/2023 22:10:00 45.3 Above high normal 36.0-45.2 (%) Final MCV 09/09/2023 22:10:00 92.6 81.5-97.5 (fL) Final MCH 09/09/2023 22:10:00 29.9 27.0-34.0 (pg) Final MCHC 09/09/2023 22:10:00 32.2 32.0-36.0 (g/dL) Final RDW 09/09/2023 22:10:00 12.9 11.5-15.5 (%) Final Platelets 09/09/2023 22:10:00 275 140-400 (K/uL) Final MPV 09/09/2023 22:10:00 9.0 6.6-11.1 (fL) Final Nucleated erythrocytes/100 leukocytes [Ratio] in Blood by Automated count 09/09/2023 22:10:00 0 <=0 (/100 WBCs) Final Performing Location [facility] - [address] [place] [id number]
--- OUTSIDE RECORDS SUMMARY | 2023-10-08 11:55 | External Medical Summary ---
Author Name Unknown Address Unknown Organization K1F:LABORATORY [facility] - [address] [place] [address] Laboratory Report Ordering Provider Test Date Status DORON GAO 09/09/2023 22:10:00 Final Observation Date Value Abnormality Reference (Units ) Status Salicylates 09/09/2023 22:10:00 <0.3 Below low normal 5 .0-30.0 (mg/dL) Final Performing Location [facility] - [address] [place] [address]
--- OUTSIDE RECORDS SUMMARY | 2023-10-08 11:55 | External Medical Summary ---
Author Name Unknown Address Unknown Organization K01:LABORATORY [facility] - [address] [place], [place] [address] Laboratory Report Ordering Provider Test Date Status KHARI MARTÍNEZ 08/11/2023 11:45:00 Final Observation Date Value Abnormality Reference (Units ) Status Albumin 08/11/2023 11:45:00 3.9 3.8-5.0 (g/dL) Final AST (Aspartate aminotransferase) 08/11/2023 11:45:00 92 Above high normal 10-35 (U/L) Final Result may be falsely elevat ed due to hemolysis. Alk Phos 08/11/2023 11:45:00 157 Above high normal 35 -130 (U/L) Final ALT (Alanine aminotransferase) 08/11/2023 11:45:00 141 Above high normal 10-35 (U/L) Final Bilirubin, Total 08/11/2023 11:45:00 0.4 <=1 .2 (mg/dL) Final Bilirubin, Direct 08/11/2023 11:45:00 <0.2 0. 0-0.3 (mg/dL) Final Result may be falsely decrea sed due to hemolysis. Protein 08/11/2023 11:45:00 7.2 6.0-8.3 (g /dL) Final Performing Location LABORATORY [facility] - [address] [place] [address]
--- OUTSIDE RECORDS SUMMARY | 2023-10-08 11:55 | External Medical Summary ---
Author Name Unknown Address Unknown Organization K1F:[facility] - [address] [place] [address] Laboratory Report Ordering Provider Test Date Status KHRIS LEDBETTER 08/10/2023 22:01:02 Final Observation Date Value Abnormality Reference (Units ) Status Color of Urine by Auto 08/10/2023 22:01:02 Yellow Light Yellow, Yellow, Dark Yellow Final Clarity, Urine 08/10/2023 22:01:02 Clear Clear Final Glucose [Mass/volume] in Urine by Automated test strip 08/10/2023 22:01:02 Negative Negative (mg/dL) Final Bilirubin.total [Presence] in Urine by Automated test strip 08/10/2023 22:01:02 Negative Negative Final Ketones [Mass/volume] in Urine by Automated test strip 08/10/2023 22:01:02 Negative Negative (mg/dL) Final Specific gravity, Urine 08/10/2023 22:01:02 1.024 1.003-1.030 Final Hemoglobin [Presence] in Urine by Automated test strip 08/10/2023 22:01:02 Negative Negative Final pH, Urine 08/10/2023 22:01:02 6.0 5.0-7.5 (Units) Final Protein [Mass/volume] in Urine by Automated test strip 08/10/2023 22:01:02 Negative Negative (mg/dL) Final Urobilinogen [Mass/volume] in Urine by Automated test strip 08/10/2023 22:01:02 0.2 0.2, 1.0 (mg/dL) Final Nitrite [Presence] in Urine by Automated test strip 08/10/2023 22:01:02 Negative Negative Final Leukocyte esterase [Presence] in Urine by Automated test strip 08/10/2023 22:01:02 Negative Negative Final Annotation Comment 08/10/2023 22:01:02 Final Screen negative - Microscopi c not performed. Performing Location [facility] - [address] [place] [address]
--- OUTSIDE RECORDS SUMMARY | 2023-10-08 11:55 | External Medical Summary ---
Author Name Unknown Address Unknown Organization [id number]:LABORATORY [facility] - [address] [facility] [place] [address] Laboratory Report Ordering Provider Test Date Status DORON GAO 09/07/2023 18:18:06 Final Observation Date Value Abnormality Reference (Units ) Status Color of Urine by Auto 09/07/2023 18:18:06 Yellow Light Yellow, Yellow, Dark Yellow Final Clarity, Urine 09/07/2023 18:18:06 Clear Clear Final Glucose [Mass/volume] in Urine by Automated test strip 09/07/2023 18:18:06 Negative Negative (mg/dL) Final Bilirubin.total [Presence] in Urine by Automated test strip 09/07/2023 18:18:06 Negative Negative Final Ketones [Mass/volume] in Urine by Automated test strip 09/07/2023 18:18:06 Negative Negative (mg/dL) Final Specific gravity, Urine 09/07/2023 18:18:06 1.024 1.003-1.030 Final Hemoglobin [Presence] in Urine by Automated test strip 09/07/2023 18:18:06 Large Abnormal Negative Final pH, Urine 09/07/2023 18:18:06 5.5 5.0-7.5 (Units) Final Protein [Mass/volume] in Urine by Automated test strip 09/07/2023 18:18:06 Negative Negative (mg/dL) Final Urobilinogen [Mass/volume] in Urine by Automated test strip 09/07/2023 18:18:06 0.2 0.2, 1.0 (mg/dL) Final Nitrite [Presence] in Urine by Automated test strip 09/07/2023 18:18:06 Negative Negative Final Leukocyte esterase [Presence] in Urine by Automated test strip 09/07/2023 18:18:06 Negative Negative Final Performing Location LABORATORY [facility] - [address] [place] [address]
--- OUTSIDE RECORDS SUMMARY | 2023-10-08 11:55 | External Medical Summary ---
Author Name Unknown Address Unknown Organization [id number]:LABORATORY [facility] [place] - [address] [facility] [address] Laboratory Report Ordering Provider Test Date Status KHRIS LEDBETTER 08/10/2023 21:57:00 Final Observation Date Value Abnormality Reference (Units ) Status HbA1C 08/10/2023 21:57:00 5.7 Above high normal 4. 0-5.6 (%) Final The use of HbA1c to monitor glycemic status is based on normal hemoglobin and HbA composition. This test should not be used in patients with abnormal hemoglobin that affects the half life of the red blood cell or the in vivo glycation rates. Glucose, estimated average 08/10/2023 21:57:00 117 <126 (mg/dL) Final Performing Location LABORATORY [facility] [place] - [address] [facility] [address]
--- OUTSIDE RECORDS SUMMARY | 2023-10-08 11:55 | External Medical Summary ---
Author Name Unknown Address Unknown Organization [id number]:[place] [facility] [address] [place] [address] Laboratory Report Ordering Provider Test Date Status DAGOCECILIA 08/10/2023 21:57:00 Final Observation Date Value Abnormality Reference (Units ) Status Albumin 08/10/2023 21:57:00 4.3 3.8-5.0 (g/dL) Final AST (Aspartate aminotransferase) 08/10/2023 21:57:00 91 Above high normal 10-35 (U/L) Final Alk Phos 08/10/2023 21:57:00 158 Above high normal 35-130 (U/L) Final ALT (Alanine aminotransferase) 08/10/2023 21:57:00 156 Above high normal 10-35 (U/L) Final Bilirubin, Total 08/10/2023 21:57:00 0.3 <=1.2 (mg/dL) Final Bilirubin, Direct 08/10/2023 21:57:00 <0.2 0.0-0.3 (mg/dL) Final Protein 08/10/2023 21:57:00 7.9 6.0-8.3 (g/dL) Final Performing Location [place] [facility] [address] [place] [address]
--- OUTSIDE RECORDS SUMMARY | 2023-10-08 11:56 | External Medical Summary ---
Author Name Unknown Address Unknown Organization [id number]:LABORATORY [facility] - [address] [place] [address] Laboratory Report Ordering Provider Test Date Status DORON GAO 08/10/2023 21:57:00 Final Observation Date Value Abnormality Reference (Units ) Status Acetaminophen 08/10/2023 21:57:00 <5.0 Below low normal 10.0-30.0 (ug/mL) Final Performing Location LABORATORY [facility] - [address] [place] [address]
--- OUTSIDE RECORDS SUMMARY | 2023-10-08 11:56 | External Medical Summary ---
Author Name Unknown Address Unknown Organization [id number]:LABORATORY [facility] - [address] [place] [address] Laboratory Report Ordering Provider Test Date Status DORON GAO 08/10/2023 21:57:00 Final Observation Date Value Abnormality Reference (Units ) Status WBC, Total 08/10/2023 21:57:00 11.49 Above high normal 4.00-10.80 (K/uL) Final RBC 08/10/2023 21:57:00 4.79 3.85-5.15 (M/uL) Final Hemoglobin 08/10/2023 21:57:00 14.0 12.0-15.3 (g/dL) Final HCT 08/10/2023 21:57:00 43.6 36.0-45.2 (%) Final MCV 08/10/2023 21:57:00 91.0 81.5-97.5 (fL) Final MCH 08/10/2023 21:57:00 29.2 27.0-34.0 (pg) Final MCHC 08/10/2023 21:57:00 32.1 32.0-36.0 (g/dL) Final RDW 08/10/2023 21:57:00 13.4 11.5-15.5 (%) Final Platelets 08/10/2023 21:57:00 289 140-400 (K/uL) Final MPV 08/10/2023 21:57:00 8.7 6.6-11.1 (fL) Final Nucleated erythrocytes/100 leukocytes [Ratio] in Blood by Automated count 08/10/2023 21:57:00 0 <=0 (/100 WBCs) Final Performing Location LABORATORY [facility] - [address] [place] [address]
--- OUTSIDE RECORDS SUMMARY | 2023-10-08 11:56 | External Medical Summary ---
Author Name Unknown Address Unknown Organization K1F:LABORATORY [facility] - [address] [facility] [place] [address] Laboratory Report Ordering Provider Test Date Status DORON GAO 08/10/2023 21:57:00 Final Observation Date Value Abnormality Reference (Units ) Status BUN 08/10/2023 21:57:00 12 6-20 (mg/dL) Final Creatinine 08/10/2023 21:57:00 0.6 0.5-1.0 (mg/dL) Final Glomerular filtration rate/1.73 sq M.predicted [Volume Rate/Area] in Serum, Plasma or Blood by Creatinine-based formula (CKD-EPI) 08/10/2023 21:57:00 >90 >=60 (mL/min) Final eGFR is calculated based on the CKD-EPI 2020 equation SODIUM 08/10/2023 21:57:00 136 135-146 (m mol/L) Final Potassium 08/10/2023 21:57:00 4.0 3.5-5.1 (m mol/L) Final Cl 08/10/2023 21:57:00 100 98-107 (mm ol/L) Final CO2 08/10/2023 21:57:00 27 22-32 (mmo l/L) Final Anion gap 08/10/2023 21:57:00 9 7-15 (mmol /L) Final Glucose 08/10/2023 21:57:00 105 70-120 (mg /dL) Final Albumin 08/10/2023 21:57:00 4.1 3.8-5.0 (g /dL) Final AST (Aspartate aminotransferase) 08/10/2023 21:57:00 85 Above high normal 10-35 (U/L) Final Alk Phos 08/10/2023 21:57:00 169 Above high normal 35 -130 (U/L) Final Bilirubin, Total 08/10/2023 21:57:00 0.3 <=1 .2 (mg/dL) Final Calcium 08/10/2023 21:57:00 9.0 8.4-10.2 ( mg/dL) Final Protein 08/10/2023 21:57:00 7.9 6.0-8.3 (g /dL) Final ALT (Alanine aminotransferase) 08/10/2023 21:57:00 144 Above high normal 10-35 (U/L) Final Performing Location LABORATORY [facility] - [facility] [address] [place] [address]
--- OUTSIDE RECORDS SUMMARY | 2023-10-08 11:56 | External Medical Summary | Summary of Care ---
Author Name Unknown Organization [facility] Address [address] [place] [address] Phone [phone] Care Team Providers Care Isotope Technologist Name Role Phone Olinda Wang DO Primary Care Provider + Reason for Visit * Reason Comments Outpatient Testing Encounter Details Date Type Department Care Team Description 05/14/2023 Laboratory Laboratory, [place] [address] [place] [address] [facility] [address] [place] [id number] Bipolar I disorder, most recent episode depressed, severe w psychosis (HCC); Anxiety state Allergies Active Allergy Reactions Severity Noted Date Comments Aspirin Hives 11/18/2018 Apparently her mother told her she is allergic to it documented as of this encounter (statuses as of 05/14/2023) Medications Medication Sig Dispensed Refills Start Date End Date Status Albuterol Sulfate HFA 108 (90 Base) MCG/ACT Inhalation Aerosol Solution INHALE 2 PUFFS BY MOUTH 4 TIMES A DAY 18 g 1 03/12/2021 Active Melatonin 3 MG Oral Tablet Take 2 Tablets by mouth at bedtime. 0 Active ARIPiprazole 5 MG Oral Tablet Take 1 Tablet by mouth at bedtime. 0 06/04/2022 Active Prazosin HCl 2 MG Oral Capsule (Minipress) Take 1 Capsule by mouth at bedtime. 0 Active traZODone HCl 100 MG Oral Tablet (Desyrel) Take 1 Tablet by mouth at bedtime. 0 Active Venlafaxine HCl ER 150 MG Oral Capsule Extended Release 24 Hour (Effexor XR) TAKE ONE CAPSULE BY MOUTH EVERY MORNING - DO NOT START BEFORE JUNE 18, 2022 5 Capsule 0 06/17/2022 06/17/2023 Active Mupirocin 2 % External Ointment (Bactroban) Small amount to affected area three times daily for 10 days 22 g 0 11/21/2022 Active Prochlorperazine Maleate 5 MG Oral Tablet (Compazine) Take 1 Tablet by mouth every 6 hours as needed for Nausea. 20 Tablet 0 12/23/2022 Active Ondansetron 4 MG Oral Tablet Disintegrating (Zofran) Place 1 Tablet on tongue every 8 hours as needed for Nausea. dissolve on tongue. 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 Fever 05/06/2022 URI (upper respiratory infection) 2021 Tachycardia 05/06/2022 Body mass index (BMI) of 40.0 to 44.9 in adult 11/19/2021 Unspecified psychosis not du e to a substance or known physiological condition 11/19/2021 Lack of adequate food and safe drinking water 11/19/2021 Body mass index (BMI) of 45.0 to 49.9 in adult 06/02/2021 Overview: Per Obesity protocol - ICD-10 update of inactive term Bipolar I disorder, most recent episode depressed 05/31/2021 Flashbacks 05/19/2021 Noncompliance with treatment 01/08/2021 Bipolar I disorder, most recent episode mixed 09/27/2020 UTI (urinary tract infection) 11/03/2019 Bipolar disorder, curr episode mixed, se jayjay, with psychotic features 10/20/2019 Cannabis abuse 10/20/2019 Severe episode of recurrent major depressive disorder, with psychotic features 09/12/2019 Migraine without aura and without status migrainosus, not intractable 09/12/2019 JAMA (nonalcoholic steatohepatitis) 03/24 Hepatic steatosis 03/06/2019 Tobacco use disorder 01/04/2019 Mild intellectual disability 12/16/2018 Major depression, recurrent 11/24/2018 PTSD (post-traumatic stress disorder) Learning disorder 11/24/2018 documented as of this encounter (statuses as of 05/14/2023) Resolved Problems Problem Noted Date Resolved Date Food insecurity 03/31/2021 12/04/2021 Overview: Per [facility] Protocol Adenotonsillitis, acute 10/28/2020 11/20/19 Tonsillar abscess 10/28/2020 11/19/2021 Nonintractable epilepsy without status epileptic us 12/20/2018 11/19/2021 Body mass index (BMI) of 40.0 to 44.9 in adult 0 12/19/2018 06/05/2021 Overview: Per Obesity protocol - ICD-10 update of inactive term Obesity, BMI not known 11/24/2018 9 documented as of this encounter (statuses as of 05/14/2023) Immunizations Name Administration Dates Next Due HPV Vaccine, 9-Valent 11/19/2021,10/04/2019,03/24 Hepatitis B Immune Globulin (HBIG) 03/20/2022 Hepatitis B, 20+ yrs 03/20/2022 PPD 06/04/2022(Deferred: Patient Refused),11/19/2021 Pneumococcal Polysaccharide PPV23 (Pneumovax) 11/12/2018 Seasonal Influenza Virus Vac cine, Unspecified Formulation 11/12/2018 Seasonal Influenza, PF, 6 mo ns & Above, IM , (Flulaval) 06/17/2022(Deferred: Patient Refused),11/19/2021,11/06/2021(),06/04(Deferred: - patient not feeling well- requests to take another day),10/28/2020,05/10/2019 Seasonal Influenza, Split, I IV3, No Preserve, Inj 11/12/2018 TDAP (age 10 and older)(Boostrix) 03/01/2022 TDAP (age 11 and older)(Adacel) 11/08/2018 documented as of this encounter Social History Tobacco Use Types Packs/Day Years Used Date Smoking Tobacco: Every Day Cigarettes 0.5 Started: 2009 Smokeless Tobacco: Never Comments:rare cigarettes Alcohol Use Standard Drinks/Week Comments Not Currently 0 (1 standard drink = 0.6 oz pur e alcohol) occasional Alcohol Habits Answer Date Recorded How often do you have a drink containing alcohol ? Never 11/19/2018 How many drinks containing a lcohol do you have on a typical day when you are drinking? Not asked How often do you have six or more drinks on one occasion? Not asked Food Insecurity Answer Date Recorded Within the past 12 months, y ou worried that your food would run out before you got money to buy more. Often true 03/14/2020 Within the past 12 months, t he food you bought just didn't last and you didn't have money to get more. Often true 03/14/2020 Sex Assigned at Date Recorded Female 12/09/2018 11:32 AM EDT Job Start Date Occupation Industry [...] or making decisions? (5 years old or older No 10/28/2020 documented as of this encounter Plan of Treatment Pending Results Name Type Priority Associated Diagnoses Date /Time HEMOGLOBIN A1C Lab Routine Bipolar I disorder, most recent episode depressed, severe w psychosis (HCC) Anxiety state 05/14/2023 11:05 AM EDT LIPID PANEL WITH DIRECT LDL IF TG IS HIGH Lab Routine Bipolar I disorder, most recent episode depressed, severe w psychosis (HCC) Anxiety state 05/14/2023 11:05 AM EDT VITAMIN B12 Lab Routine Bipolar I disorder, most recent episode depressed, severe w psychosis (HCC) Anxiety state 05/14/2023 11:05 AM EDT 25-HYDROXY VITAMIN D Lab Routine Bipolar I disorder, most recent episode depressed, severe w psychosis (HCC) Anxiety state 05/14/2023 11:05 AM EDT COMPREHENSIVE METABOLIC PANEL Lab Routine Bipolar I disorder, most recent episode depressed, severe w psychosis (HCC) Anxiety state 05/14/2023 11:05 AM EDT FOLIC ACID Lab Routine Bipolar I disorder, most recent episode depressed, severe w psychosis (HCC) Anxiety state 05/14/2023 11:05 AM EDT Scheduled Procedures Name Priority Associated Diagnoses Date/Ti [...] 10/28/2020, 05/10/2019, Additional history exists Depression Screening 06/17/2023 06/17/2022 DTaP,Tdap,and Td Vaccines (3 - Td or Tdap) 03/01/2032 03/01/2022, 11/08/2018 Gonorrhea / Chlamydia Screen Discontinued 02/28/2021, 03/14/2020, 02/25/2020, Additional history exists GARDASIL-HPV IMMUNIZATION SERIES Completed 11/19/2021, 10/04/2019, 04/13/2019 Hepatitis C Screening Completed 03/19/2022 , 03/19/2022, 03/19/2022, Additional history exists MENINGOCOCCAL (MENACTRA/MENVEO) Aged Out No longer eligible based on patient's age to complete this topic documented as of this encounter Medical Devices Not on filedocumented as of this encounter Visit Diagnoses Diagnosis Bipolar I disorder, most recent episode depressed, severe w psychosis (HCC) Bipolar I disorder, most recent episode (or current) depressed, severe, specified as with psychotic behavior Anxiety state Anxiety state, unspecified documented in this encounter Advance Directives Latest [...] the patient have Health Care Power of Fibre Composite Technician? No Code Status History Code Status Date Activated Date Inactivated Comments Full Code 05/02/2022 11:32 PM 05/09/2022 1:15 PM This order reflects the patients wishes and were consensually agreed upon. Question Answer Comments Discussion of Advance Directives occurred with: Patient Does the patient have a Living Will? No Does the patient have Health Care Power of Fibre Composite Technician? No Full Code 03/05/2022 5:38 AM 03/09/2022 4:16 PM This order reflects the patients wishes and were consensually agreed upon. Question Answer Comments Discussion of Advance Directives occurred with: Patient Does the patient have a Living Will? No Does the patient have Health Care Power of Fibre Composite Technician? No Full Code 01/23/2022 1:50 AM 02/03/2022 5:03 PM This o rder reflects the patients wishes and were consensually agreed upon. Question Answer Comments Discussion of Advance Directives occurred with: Patient Does the patient have a Living Will? No Does the patient have Health Care Power of Fibre Composite Technician? No Full Code 01/12/2022 12:00 AM 01/19/2022 2:51 PM This order reflects the patients wishes and were consensually agreed upon. Care Teams Isotope Technologist Relationship Specialty Start Date End Date Olinda Wang, DO [address] [place] [address] PCP - General Family Medicine 01/03/23 documented as of this encounter
--- OUTSIDE RECORDS SUMMARY | 2023-10-08 11:56 | External Medical Summary ---
Author Name Unknown Address Unknown Organization K01:LABORATORY [facility] [place] - [address] [place] [address] Laboratory Report Ordering Provider Test Date Status SARANYA BAJWA 05/14/2023 11:05:52 Final Deficient: <20 ng/mL
Ins ufficient: 20-29 ng/mL
Recommended/Optimum:30-50 ng/mL

Vitamin D intoxication is rare. If suspicious of Vitamin D toxicity, evaluation of serum Calcium and PTH is recommended. Observation Date Value Abnormality Reference (Units ) Status 25-OH Vitamin D total 05/14/2023 11:05:52 19 Below low normal >19 (ng/mL) Final Performing Location LABORATORY [facility] - [address] [place] [address]
--- OUTSIDE RECORDS SUMMARY | 2023-10-08 11:56 | External Medical Summary ---
Author Name Unknown Address Unknown Organization K01:LABORATORY [facility] [place] - [address] [place] [address] Laboratory Report Ordering Provider Test Date Status SARANYA BAJWA 05/14/2023 11:05:52 Final Observation Date Value Abnormality Reference (Units ) Status Vitamin B12 05/14/2023 11:05:52 [phone] (pg/mL) Final Performing Location LABORATORY [facility] - [address] [place] [address]
--- OUTSIDE RECORDS SUMMARY | 2023-10-08 11:56 | External Medical Summary ---
Author Name Unknown Address Unknown Organization K1F:LABORATORY [facility] - [address] [place] [address] Laboratory Report Ordering Provider Test Date Status DORON GAO 08/10/2023 21:57:00 Final Observation Date Value Abnormality Reference (Units ) Status Ethanol 08/10/2023 21:57:00 Negative Negative Final Performing Location LABORATORY [facility] - [address] [place] [address]
--- OUTSIDE RECORDS SUMMARY | 2023-10-08 11:56 | External Medical Summary | Summary of Care ---
Author Name Unknown Organization [facility] Address [address] [place] [address] Phone [phone] Care Team Providers Care Jacquard Card Lacer Name Role Phone Olinda Wang DO Primary Care Provider + Reason for Referral * Evaluate & Treat - Unlimited Visits (Within 10 days (routine)) - Authorized Specialty Diagnoses / Procedures Referred By Jordyn cueva Referred To Contact Podiatry Diagnoses Bilateral ankle pain, unspecified chronicity Denis Pablo MD [address] [place] [address] Referral ID Status Reason Start Date Expiration Date Visits Requested Visits Authorized [id number] Authorized Specialty Services Required 07/01/2023 999 999 Question Answer Referral Priority Within 10 days (routine) Where should this appointment be scheduled? [facility] Which condition are you referring this patient for? General Foot Pain Comments Discharge Order Reason for Visit * Reason Comments Pain * Auth/Cert Specialty Diagnoses / Procedures Referred By Jordyn cueva Referred To Contact Referral ID Status Reason Start Date Expiration Date Visits Re quested Visits Authorized [id number] Encounter Details Date Type Department Care Team (Late st Contact Info) Description 07/01/2023 12:52 PM EST - 07/01/2023 2:48 PM EST Emergency [facility] Emergency Department (H) [address], [place] [id number] Denis Pablo MD [address] [place] [address] Bilateral ankle pain, unspecified chronicity (Primary Dx) Discharge Disposition: Home - Self Care Allergies Active Allergy Reactions Criticality Noted Date Comments Aspirin Hives 11/18/2018 Apparently her mother told her she is allergic to it documented as of this encounter (statuses as of 07/02/2023) Medications Medication Sig Dispensed Refills Start Date [...] Tablet by mouth at bedtime. 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 Fever 05/06/2022 URI [...] as of this encounter (statuses as of 07/02/2023) Resolved Problems Problem Noted Date Diagnosed Date Resolved Date Food insecurity 03/31/2021 12/04/2021 [...] as of this encounter (statuses as of 07/02/2023) Immunizations Name Administration Dates Next Due HPV Vaccine, 9-Valent 11/19/2021,10/04/2019,03/24 Hepatitis B Immune Globulin (HBIG) 03/20/2022 Hepatitis B, 20+ yrs 03/20/2022 PPD 06/04/2022(Deferred: Patient Refused),11/19/2021 Pneumococcal Polysaccharide PPV23 (Pneumovax) 11/12/2018 SEASONAL INFLUENZA, PF, 6 M & Above, IM , (FLULAVAL or FLUZONE) 06/17/2022(Deferred: Patient Refused),11/19/2021,11/06/2021(),06/04(Deferred: - patient not feeling well- requests to take another day),10/28/2020,05/10/2019 Seasonal Influenza Virus Vac cine, Unspecified Formulation 11/12/2018 Seasonal Influenza, Split, I IV3, No Preserve, [...] Date Recorded PHQ Adult Total Score 0 06/17/2022 Hunger Vital Sign Answer Date Recorded Worried [...] Sign Reading Time Taken Comments Blood Pressure 126/85 07/01/2023 2:17 PM EST Pulse 103 07/01/2023 2:17 PM EST Temperature 36.8 C (98.2 F) 07/01/2023 12:[address] Respiratory Rate 20 07/01/2023 2:17 PM EST Oxygen Saturation 96% 07/01/2023 12:50 PM EST Inhaled Oxygen Concentration - - Weight 113.4 kg (250 lb) 07/01/2023 12:50 PM EST Height 160 cm (5' 3") 07/01/2023 12:50 PM EST Body Mass Index 44.29 07/01/2023 12:50 PM EST documented in this encounter Functional [...] this encounter Discharge Instructions * Discharge Instructions* Denis Pablo MD - 07/01/2023 2:34 PM EST Please wear your ankle brace as previously instructed. Please follow-up with the Podiatry. Your x-rays were negative for any fracture here. You may take Tylenol and ibuprofen for pain Please return to this Emergency Department or seek emergent care if your symptoms change, worsen significantly, or concern you in any way. Concerning symptoms that would require re-evaluation include, but are not necessarily limited to: - Fevers or shaking chills - Chest pain or difficulty breathing - Severe headache, numbness or tingling, or confusion - Persistent vomiting, severe abdominal pain, abdominal bloating, or bloody bowel movements - Inability to urinate or if your urine is significantly decreased Let us know if you have any questions regarding these instructions or the care you received here before leaving the Emergency Department. Please read the attached pamphlet for more information about your diagnosis and treatment. documented in this encounter ED Notes * Jose Elias Gardner RN - 07/01/2023 12:47 PM EST Pt c/o bilateral ankle pain and swelling that started a month ago. Pt did take ibuprofen at 0800 and had a little relief. documented in this encounter Miscellaneous Notes * ED Pathology Technologist Note - Linda Frank RN - 07/01/2023 2:46 PM EST [id number] pt sitting in wheelchair with no apparent distress. Resp unlabored. Pt given d/c instruc and aware of referral. Pt d/c'd with visitor. Ambulated from ED. * ED Pathology Technologist Note - Amelia Hu RN - 07/01/2023 1:38 PM EST Pt presents to ED for evaluation of bilateral ankle pain that has been ongoing for the last month. Pt denies any known trauma or injury. Reports she has had pain and swelling that has been worsening.States she has difficulty walking d/t the pain. States that she feels as though "my ankles could just give out sometimes". Pt reports taking ibuprofen this morning with some relief. +PMS of BLE. Denies any other complaints at this time. Call mendez in reach. documented in this encounter Plan of Treatment Scheduled Procedures Name Priority Associated Diagnoses Date/Ti me COLONOSCOPY FLEXIBLE PROXIMA L DIAGNOSTIC Recall Hemorrhage of rectum and anus Hemorrhoids Other constipation Scheduled Referrals Name Type Priority Associated Diagnoses Orde r Schedule PODIATRY REFERRAL OP Referral Within 10 days (routine) Bilateral ankle pain, unspecified chronicity Ordered: 07/01/2023 Health Maintenance Due Date Last Done Comments [...] Procedure Name Priority Date/Time Associated Diagnosis Comments XR FOOT 3 OR MORE VIEWS STAT 07/01/2023 1:55 PM EST XR ANKLE 3 OR MORE VIEWS STAT 07/01/2023 1:55 PM EST documented in this encounter Results * XR FOOT 3 OR MORE VIEWS (07/01/2023 1:55 PM EST) Anatomical Region Laterality Modality Foot, Lower Extremity Digital Ra diography 07/01/2023 1:42 PM EST Impressions 07/01/2023 2:20 PM EST IMPRESSION: No acute findings. PROCEDURE INFORMATION: Exam: XR Left Foot Exam date and time: 07/01/2023 1:42 PM Age: 28 years old Clinical indication: Other: Bilateral ankle/foot swelling and pain x 1 month, no injury TECHNIQUE: Imaging protocol: Radiologic exam of the left foot. Views: 3 or more views. COMPARISON: DX XR FOOT 3 OR MORE VIEWS 02/16/2023 3:25 PM FINDINGS: Bones/joints: No acute fracture or dislocation. Joint spaces maintained. Soft tissues: Unremarkable. IMPRESSION: No acute findings. THIS DOCUMENT HAS BEEN ELECTRONICALLY SIGNED BY PHILIP BURNETT MD Narrative 07/01/2023 2:20 PM EST PROCEDURE INFORMATION: Exam: XR Right Foot Exam date and time: 07/01/2023 1:42 PM Age: 28 years old Clinical indication: Other: Bilateral ankle/foot swelling and pain x 1 month, no injury TECHNIQUE: Imaging protocol: Radiologic exam of the right foot. Views: 3 or more views. COMPARISON: DX XR FOOT 3 OR MORE VIEWS 02/16/2023 3:25 PM FINDINGS: Bones/joints: No acute fracture or dislocation. Mild hallux valgus. Joint spaces maintained. Soft tissues: Unremarkable. Procedure Note Philip Burnett MD - 07/01/2023 PROCEDURE INFORMATION: Exam: XR Right Foot Exam date and time: 07/01/2023 1:42 PM Age: 28 years old Clinical indication: Other: Bilateral ankle/foot swelling and pain x 1month, no injury TECHNIQUE: Imaging protocol: Radiologic exam of the right foot. Views: 3 or more views. COMPARISON: DX XR FOOT 3 OR MORE VIEWS 02/16/2023 3:25 PM FINDINGS: Bones/joints: No acute fracture or dislocation. Mild hallux valgus. Joint spaces maintained. Soft tissues: Unremarkable. IMPRESSION IMPRESSION: No acute findings. PROCEDURE INFORMATION: Exam: XR Left Foot Exam date and time: 07/01/2023 1:42 PM Age: 28 years old Clinical indication: Other: Bilateral ankle/foot swelling and pain x 1month, no injury TECHNIQUE: Imaging protocol: Radiologic exam of the left foot. Views: 3 or more views. COMPARISON: DX XR FOOT 3 OR MORE VIEWS 02/16/2023 3:25 PM FINDINGS: Bones/joints: No acute fracture or dislocation. Joint spaces maintained. Soft tissues: Unremarkable. IMPRESSION: No acute findings. THIS DOCUMENT HAS BEEN ELECTRONICALLY SIGNED BY PHILIP BURNETT MD Denis Pablo MD RADIOLOGY (RAD G ENERAL) * XR ANKLE 3 OR MORE VIEWS (07/01/2023 1:55 PM EST) Anatomical Region Laterality Modality Ankle, Lower Extremity Digital R adiography 07/01/2023 1:42 PM EST Impressions 07/01/2023 2:21 PM EST IMPRESSION: Ankle swelling with no acute osseous abnormality. PROCEDURE INFORMATION: Exam: XR Left Ankle Exam date and time: 07/01/2023 1:42 PM Age: 28 years old Clinical indication: Other: Bilateral ankle/foot swelling and pain x 1 month, no injury TECHNIQUE: Imaging protocol: Radiologic exam of the left ankle. Views: 3 or more views. COMPARISON: DX XR FOOT 3 OR MORE VIEWS 07/01/2023 1:42 PM FINDINGS: Bones/joints: No acute fracture or dislocation. Ankle mortise is congruent. Joint spaces maintained. Soft tissues: Ankle swelling. IMPRESSION: Ankle swelling with no acute osseous abnormality. THIS DOCUMENT HAS BEEN ELECTRONICALLY SIGNED BY PHILIP BURNETT MD Narrative 07/01/2023 2:21 PM EST PROCEDURE INFORMATION: Exam: XR Right Ankle Exam date and time: 07/01/2023 1:42 PM Age: 28 years old Clinical indication: Other: Bilateral ankle/foot swelling and pain x 1 month, no injury TECHNIQUE: Imaging protocol: Radiologic exam of the right ankle. Views: 3 or more views. COMPARISON: DX XR FOOT 3 OR MORE VIEWS 07/01/2023 1:42 PM FINDINGS: Bones/joints: No acute fracture or dislocation. Ankle mortise is congruent. Joint spaces maintained. Soft tissues: Ankle swelling. Procedure Note Philip Burnett MD - 07/01/2023 PROCEDURE INFORMATION: Exam: XR Right Ankle Exam date and time: 07/01/2023 1:42 PM Age: 28 years old Clinical indication: Other: Bilateral ankle/foot swelling and pain x 1month, no injury TECHNIQUE: Imaging protocol: Radiologic exam of the right ankle. Views: 3 or more views. COMPARISON: DX XR FOOT 3 OR MORE VIEWS 07/01/2023 1:42 PM FINDINGS: Bones/joints: No acute fracture or dislocation. Ankle mortise iscongruent. Joint spaces maintained. Soft tissues: Ankle swelling. IMPRESSION IMPRESSION: Ankle swelling with no acute osseous abnormality. PROCEDURE INFORMATION: Exam: XR Left Ankle Exam date and time: 07/01/2023 1:42 PM Age: 28 years old Clinical indication: Other: Bilateral ankle/foot swelling and pain x 1month, no injury TECHNIQUE: Imaging protocol: Radiologic exam of the left ankle. Views: 3 or more views. COMPARISON: DX XR FOOT 3 OR MORE VIEWS 07/01/2023 1:42 PM FINDINGS: Bones/joints: No acute fracture or dislocation. Ankle mortise iscongruent. Joint spaces maintained. Soft tissues: Ankle swelling. IMPRESSION: Ankle swelling with no acute osseous abnormality. THIS DOCUMENT HAS BEEN ELECTRONICALLY SIGNED BY PHILIP BURNETT MD Denis Pablo MD RADIOLOGY (RAD G ENERAL) documented in this encounter Visit Diagnoses Diagnosis Bilateral ankle pain, unspecified chronicity- Primary documented in this encounter Administered Medications Inactive Administered Medications - up to 3 most recent administrations Medication Order MAR Action Action Date Dose Rate Site Acetaminophen (Tylenol) tab 975 mg 975 mg, Oral, ONCE, On Lin 07/01/23 at 1400, For 1 dose, Maximum of 4 grams (4000 mg) per day. Given 07/01/2023 1:34 PM EST 975 mg documented in this encounter Active and Recently Administered Medications Times are shown in EST. Scheduled Medication Order 06/29/2023 06/30/2023 07/01/2023 Acetaminophen (Tylenol) tab 975 mg (COMPLETED) 975 mg, Oral, ONCE, On Lin 07/01/23 at 1400, For 1 dose, Maximum of 4 grams (4000 mg) per day. 1334 (Given - Provid er: Amelia Hu RN) documented in this encounter Advance Directives [...] the patient have Health Care Power of Manager Assembly? No Code Status History Code Status Date Activated Date Inactivated Comments Full Code 05/02/2022 11:32 PM 05/09/2022 1:15 PM This order reflects the patients wishes and were consensually agreed upon. Question Answer Comments Discussion of Advance Directives occurred with: Patient Does the patient have a Living Will? No Does the patient have Health Care Power of Manager Assembly? No Full Code 03/05/2022 5:38 AM 03/09/2022 4:16 PM This order reflects the patients wishes and were consensually agreed upon. Question Answer Comments Discussion of Advance Directives occurred with: Patient Does the patient have a Living Will? No Does the patient have Health Care Power of Manager Assembly? No Full Code 01/23/2022 1:50 AM 02/03/2022 5:03 PM This o rder reflects the patients wishes and were consensually agreed upon. Question Answer Comments Discussion of Advance Directives occurred with: Patient Does the patient have a Living Will? No Does the patient have Health Care Power of Manager Assembly? No Full Code 01/12/2022 12:00 AM 01/19/2022 2:51 PM This order reflects the patients wishes and were consensually agreed upon. Care Teams Jacquard Card Lacer Relationship Specialty Start Date End Date Olinda Wang DO [address] [place] [address] PCP - General Family Medicine 01/03/23 documented as of this encounter
--- OUTSIDE RECORDS SUMMARY | 2023-10-08 11:56 | External Medical Summary ---
Author Name Unknown Address Unknown Organization [id number]:LABORATORY [facility] - [address] [place] [address] Laboratory Report Ordering Provider Test Date Status DORON GAO 08/10/2023 21:57:00 Final Observation Date Value Abnormality Reference (Units ) Status Salicylates 08/10/2023 21:57:00 <0.3 Below low normal 5 .0-30.0 (mg/dL) Final Performing Location LABORATORY [facility] - [address] [place] [address]
--- OUTSIDE RECORDS SUMMARY | 2023-10-08 11:56 | External Medical Summary ---
Author Name Unknown Address Unknown Organization [id number]:LABORATORY [facility] [place] - [address] [facility] [address] Laboratory Report Ordering Provider Test Date Status DORON GAO 08/10/2023 21:57:00 Final hCG can serve as a screening [...] +Beta subunit [Units/volume] in Serum or Plasma 08/10/2023 21:57:00 <0.1 <=1.0 (mIU/mL) Final Performing Location LABORATORY [facility] - [address] [facility] [address]
--- OUTSIDE RECORDS SUMMARY | 2023-10-08 11:56 | External Medical Summary ---
Author Name Unknown Address Unknown Organization [id number]:LABORATORY [facility] [place] - [address] [facility] [address] Laboratory Report Ordering Provider Test Date Status KHRIS LEDBETTER 08/10/2023 21:57:00 Final Observation Date Value Abnormality Reference (Units ) Status Triglyceride 08/10/2023 21:57:00 235 Above high normal <=174 (mg/dL) Final Triglyceride Reference Range s (mg/dL):
<150 Acceptable
150-174 Borderline high
175-499 High
>=500 Very high Cholesterol 08/10/2023 21:57:00 206 Above high normal <200 (mg/dL) Final Total Cholesterol Reference Ranges (mg/dL):
<200 Desirable
200-239 Borderline high
>=240 High HDL 08/10/2023 21:57:00 36 Below low normal >49 (mg/dL) Final HDL Cholesterol Reference Ra nges (mg/dL):
>=60 High (Desirable)
<50 Low (Undesirable) For Females
<40 Low (Undesirable) For Males NON-HDL CHOLESTEROL 08/10/2023 21:57:00 170 Above high normal <=159 (mg/dL) Final Non-HDL Cholesterol Referenc e Range (mg/dL):
<100 Target level for high risk ASCVD patient
<130 Optimal for general population
130-159 Near optimal for general population
160-189 Borderline High
190-219 High
>=220 Very High LDL, (calculated) 08/10/2023 21:57:00 123 <= 129 (mg/dL) Final LDL Cholesterol Reference Ra nges (mg/dL):
<70 Target level for high risk ASCVD patient
<100 Optimal for general population
100-129 Near optimal for general population
130-159 Borderline high
160-189 High
>=190 Very high Performing Location LABORATORY [facility] - [address] [facility] [address]
--- OUTSIDE RECORDS SUMMARY | 2023-10-08 11:57 | External Medical Summary ---
Author Name Unknown Address Unknown Organization [id number][place] [place] [address] [facility] [address] Laboratory Report Ordering Provider Test Date Status SARANYA BAJWA 05/14/2023 11:05:52 Final Observation Date Value Abnormality Reference (Units ) Status Triglyceride 05/14/2023 11:05:52 166 <=174 ( mg/dL) Final Triglyceride Reference Range s (mg/dL):
<150 Acceptable
150-174 Borderline high
175-499 High
>=500 Very high Cholesterol 05/14/2023 11:05:52 172 <200 (mg /dL) Final Total Cholesterol Reference Ranges (mg/dL):
<200 Desirable
200-239 Borderline high
>=240 High HDL 05/14/2023 11:05:52 32 Below low normal >49 (mg/dL) Final HDL Cholesterol Reference Ra nges (mg/dL):
>=60 High (Desirable)
<50 Low (Undesirable) For Females
<40 Low (Undesirable) For Males NON-HDL CHOLESTEROL 05/14/2023 11:05:52 140 <=159 (mg/dL) Final Non-HDL Cholesterol Referenc e Range (mg/dL):
<100 Target level for high risk ASCVD patient
<130 Optimal for general population
130-159 Near optimal for general population
160-189 Borderline High
190-219 High
>=220 Very High LDL, (calculated) 05/14/2023 11:05:52 107 <= 129 (mg/dL) Final LDL Cholesterol Reference Ra nges (mg/dL):
<70 Target level for high risk ASCVD patient
<100 Optimal for general population
100-129 Near optimal for general population
130-159 Borderline high
160-189 High
>=190 Very high Performing Location [facility] [place] [address] [facility] [address]
--- OUTSIDE RECORDS SUMMARY | 2023-10-08 11:57 | External Medical Summary | Summary of Care ---
Author Name Unknown Organization [facility] Address [address] [place] [address] Phone [phone] Care Team Providers Care Slate Roofer Name Role Phone Olinda Wang DO Primary Care Provider + Reason for Referral * Evaluate & Treat - Unlimited Visits (Within 10 days (routine)) - Authorized Specialty Diagnoses / Procedures Referred By Jordyn cueva Referred To Contact Physical Therapy / Physical Medicine And Rehab Diagnoses Chronic pain of both ankles Rosemarie Hall DPM [address] [place] [address] Referral ID Status Reason Start Date Expiration Date Visits Requested Visits Authorized [id number] Authorized Specialty Services Required 05/12/2023 999 999 Question Answer Referral Priority Within 10 days (routine) Comments Please evaluate and treat Reason for Visit * Reason Comments NEW PATIENT Encounter Details Date Type Department Care Team Description 05/12/2023 Office Visit Podiatry, [address] [place] [id number] Rosemarie Hall DPM [address] [place] [address] Chronic pain of both ankles*; Pes planovalgus, acquired, left; Pes planovalgus, acquired, right; Equinus deformity of foot; Peroneal tendinitis of right lower extremity; Peroneal tendinitis of left lower extremity Allergies Active Allergy Reactions Severity Noted Date Comments Aspirin Hives 11/18/2018 Apparently her mother told her she is allergic to it documented as of this encounter (statuses as of 05/12/2023) Medications Medication Sig Dispensed Refills Start Date [...] as of this encounter (statuses as of 05/12/2023) Active Problems Problem Noted Date Amphetamine abuse [...] as of this encounter (statuses as of 05/12/2023) Resolved Problems Problem Noted Date Resolved Date Food insecurity 03/31/2021 12/04/2021 Overview: Per [facility] Protocol Adenotonsillitis, acute 10/28/2020 11/20/19 22 Tonsillar abscess 10/28/2020 11/19/2021 Nonintractable epilepsy without status epileptic us 12/20/2018 11/19/2021 Body mass index (BMI) of 40.0 to 44.9 in adult 0 12/19/2018 06/05/2021 Overview: Per Obesity protocol - ICD-10 update of inactive term Obesity, BMI not known 11/24/2018 9 documented as of this encounter (statuses as of 05/12/2023) Immunizations Name Administration Dates Next Due HPV [...] No 10/28/2020 documented as of this encounter Progress Notes * Kevin Dewey, DPM - 05/12/2023 11:44 AM EDT PODIATRY CLINIC NOTE Name: Alicia Jones Date: 05/12/2023 Time: 11:44 AM Subjective PRESENTING PROBLEM: Bilateral ankle pain HPI: Alicia Jones is a 28 year old female with PMH outlined below who presents to clinic as a new patient for initial evaluation of bilateral ankle pain. Patient informs that she developed bilateral ankle pain that started few months ago without trauma or injury. She informs that shehas pain on both inner and outer side of both ankle that is constant, but worse with activity. She has been experiencing sharp and achy pain that mildly improved with rest. She rates pain 8/10 upon perform activity and tried [id number] brace at this week, but she has not been experiencing much pain relief. Patient Active Problem List Diagnosis Code Major depression, recurrent (HCC) F33.9 PTSD (post-traumatic stress disorder) F43.10 Learning disorder F81.9 Mild intellectual disability F70 Tobacco use disorder F17.200 Hepatic steatosis K76.0 JAMA (nonalcoholic steatohepatitis) K75.81 Severe episode of recurrent major depressive disorder, with psychotic features (HCC) F33.3 Migraine without aura and without status migrainosus, not intractable G43.009 Bipolar disorder, curr episode mixed, severe, with psychotic features (HCC) F31.64 Cannabis abuse F12.10 UTI (urinary tract infection) N39.0 Bipolar I disorder, most recent episode mixed (HCC) F31.60 Noncompliance with treatment Z91.199 Flashbacks (HCC) F16.283 Bipolar I disorder, most recent episode depressed (HCC) F31.30 Body mass index (BMI) of 45.0 to 49.9 in adult ([facility]) Z68.42 Body mass index (BMI) of 40.0 to 44.9 in adult ([facility]) Z68.41 Unspecified psychosis not due to a substance or known physiological condition ([facility]) F29 Lack of adequate food and safe drinking water Z59.48, Z58.6 Fever R50.9 URI (upper respiratory infection) J06.9 Tachycardia R00.0 Amphetamine abuse ([facility]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 PAST MEDICAL HISTORY: Past Medical History: Diagnosis Date Adenotonsillitis, acute 10/28/2020 Bipolar 1 disorder ([facility]) Bipolar 2 disorder ([facility]) Body mass index (BMI) 40.0-44.9, adult 12/19/2018 Epilepsy, unspecified, not intractable, without status epilepticus ([facility]) 12/20/2018 Learning disorder 11/24/2018 Major depression, recurrent ([facility]) 11/24/2018 Mild intellectual disability 12/16/2018 PTSD (post-traumatic stress disorder) 11/24/2018 Tobacco use disorder Tonsillar abscess 10/28/2020 PAST SURGICAL HISTORY: Past Surgical History: Procedure Laterality Date NONE FAMILY HISTORY: Family History Problem Relation Age of Onset Heart attack Mother SOCIAL HISTORY: Social History Tobacco Use Smoking status: Every Day Packs/day: 0.50 Types: Cigarettes Start date: 2009 Smokeless tobacco: Never Tobacco comments: rare cigarettes Vaping Use Vaping Use: Some days Substances: Nicotine, Flavoring Passive vaping exposure: Yes Substance Use Topics Alcohol use: Not Currently Comment: occasional Drug use: Yes Types: Marijuana Comment: daily for marijuana CURRENT MEDICATIONS: Note that discontinued continue to display for 24 hours. Ordered medications to be given in the future also display. Current Outpatient Medications Medication Sig Dispense Refill Albuterol Sulfate HFA 108 (90 Base) MCG/ACT Inhalation Aerosol Solution INHALE 2 PUFFS BY MOUTH 4 TIMES A DAY 18 g 1 Melatonin 3 MG Oral Tablet Take 2 Tablets by mouth at bedtime. ARIPiprazole 5 MG Oral Tablet Take 1 Tablet by mouth at bedtime. Prazosin HCl 2 MG Oral Capsule (Minipress) Take 1 Capsule by mouth at bedtime. traZODone HCl 100 MG Oral Tablet (Desyrel) Take 1 Tablet by mouth at bedtime. Venlafaxine HCl ER 150 MG Oral Capsule Extended Release 24 Hour (Effexor XR) TAKE ONE CAPSULE BY MOUTH EVERY MORNING - DO NOT START BEFORE JUNE 18, 2022 5 Capsule 0 Mupirocin 2 % External Ointment (Bactroban) Small amount to affected area three times daily for 10 days 22 g 0 Prochlorperazine Maleate 5 MG Oral Tablet (Compazine) Take 1 Tablet by mouth every 6 hours as needed for Nausea. 20 Tablet 0 Ondansetron 4 MG Oral Tablet Disintegrating (Zofran) Place 1 Tablet on tongue every 8 hours as needed for Nausea. dissolve on tongue. 2 Tablet 0 No current facility-administered medications for this visit. ALLERGIES: Aspirin REVIEW OF SYSTEMS: A complete review of systems was negative unless otherwise stated in the HPI. Objective PHYSICAL EXAMINATION: Most Recent Vital Signs: There were no vitals taken for this visit. LOWER EXTREMITY PHYSICAL EXAM: VASC: DP pulses 2/4 to lower extremities. PT pulses 2/4 to BL extremities. SIGNAL INTEGRITY ENGINEER is brisk to all digits of lower extremities. Chronic non-pitting edema diffusely across the bilateral ankle. Pedalhair is present to lower extremities. Temperature gradient is warm to warm from proximal tibia to foot of lower extremities. There is no signs of peripheral artery disease, which are rubor dependent position or pallor upon elevation. (-) varicosities to lower extremities. (-) Telangiectasias to lower extremities. NEURO: Moderate tenderness appreciated upon palpation of bilateral medial and lateral malleolus, ATFL and CFL and superficial and deltoid ligaments. Moderate tenderness appreciated upon palpation of course of bilateral peroneal tendons and bilateral navicular tuberosity. Moderate pain elicited uponadduction and abduction and dorsiflexion of bilateral foot aginst the resistance. Light touch sensation is intact to lower extremities. Protective sensation is intact to lower extremities. Proprioception intact to lower extremities. ORTHO: Gross motor function is intact to lower extremities. Muscle strength is 5/5 in all planesof lower extremities. Rigid pes planovalgus deformity bilaterally. Reducible rearfoot valgus andno forefoot varus deformity. Decrease range of motions bilateral ankle joint. Positive double heel raise test with static and dynamic medial column collapse. DERM: Skin color, turgor, and texture are unremarkable. Nails x 10 normotrophic in appearance.Interdigital space without maceration. -) open lesions to lower extremities. (-) signs of infection, including purulence, bogginess, malodor, or fluctuance to BL lower extremities. (-) skin lesions present toBL lower extremities. LABS/MICRODATA: Labs reviewed as indicated below: n/a IMAGING/STUDIES: Reviewed. See comments below. No orders to display (M25.571, G89.29, M25.572) Chronic pain of both ankles (primary encounter diagnosis) Plan: PHYSICAL THERAPY REFERRAL OP (M21.42) Pes planovalgus, acquired, left (M21.41) Pes planovalgus, acquired, right (M21.6X9) Equinus deformity of foot (M76.71) Peroneal tendinitis of right lower extremity (M76.72) Peroneal tendinitis of left lower extremity IMPRESSION and PLAN: Alicia Jones is a 28 year old female who presents to clinic for initial evaluation of medial and lateral bilateral ankle pain along with peroneal tendinitis and stage II PTTD and the bilateral ankle instability secondary to pes planovalgus and equinus contracture. In order to increase the stability of ankle, dispensed lace-up ankle brace. Informed patient to perform stretching exercise in order to decrease the eqinus contracture. Prescribed of oral Medrol Dosepak in order to decrease the inflammations at the ankle joint. Order physical therapy. F/U as needed Pt was evaluated and treated by Dr. Hall with all questions and concerns addressed. Clinical exam performed, as above. Vitals, labs, and imaging reviewed, as above. Patient will follow up in clinic as needed. Kevin Dewey DPM, PGY3 This note was completed using the dictation program Fluency Direct. As such, there may be misspellings, word substitutions, or other variations that should not change the essence of the clinical content of this encounter note. Necessary attempts were made to correct dictation errors. If there is need for further clarification, please direct questions to the author. I have discussed the patient's management with the medical trainee and agree with the note. Please refer to the documented findings and plan of care. This patient's visit today consisted of an evaluation. I was present and confirmed the findings of the history and exam. Rosemarie Hall DPM documented in this encounter Nursing Notes * Beryl Humphries LPN - 05/12/2023 11:22 AM EDT Pt here for bilateral ankle pain. She states the pain started a few months ago. Her ankles give outon her and she falls documented in this encounter Miscellaneous Notes * Addendum Note - Beryl Humphries LPN - 05/12/2023 3:13 PM EDTAddended by: BERYL HUMPHRIES on: 05/12/2023 03:13 PM Modules accepted: Orders documented in this encounter Plan of Treatment Scheduled Procedures Name Priority Associated Diagnoses Date/Ti me COLONOSCOPY FLEXIBLE PROXIMA L DIAGNOSTIC Recall Hemorrhage of rectum and anus Hemorrhoids Other constipation Scheduled Referrals Name Type Priority Associated Diagnoses Orde r Schedule PHYSICAL THERAPY REFERRAL OP Referral Within 10 days (routine) Chronic pain of both ankles Ordered: 05/12/2023 Health Maintenance Due Date Last Done Comments [...] as of this encounter Visit Diagnoses Diagnosis Chronic pain of both ankles- Primary Pes planovalgus, acquired, left Pes planovalgus, acquired, right Equinus deformity of foot Other congenital deformity of feet Peroneal tendinitis of right lower extremity Other enthesopathy of ankle and tarsus Peroneal tendinitis of left lower extremity Other enthesopathy of ankle and tarsus documented in this encounter Advance Directives Latest [...] the patient have Health Care Power of Strategy Lead? No Code Status History Code Status Date Activated Date Inactivated Comments Full Code 05/02/2022 11:32 PM 05/09/2022 1:15 PM This order reflects the patients wishes and were consensually agreed upon. Question Answer Comments Discussion of Advance Directives occurred with: Patient Does the patient have a Living Will? No Does the patient have Health Care Power of Strategy Lead? No Full Code 03/05/2022 5:38 AM 03/09/2022 4:16 PM This order reflects the patients wishes and were consensually agreed upon. Question Answer Comments Discussion of Advance Directives occurred with: Patient Does the patient have a Living Will? No Does the patient have Health Care Power of Strategy Lead? No Full Code 01/23/2022 1:50 AM 02/03/2022 5:03 PM This o rder reflects the patients wishes and were consensually agreed upon. Question Answer Comments Discussion of Advance Directives occurred with: Patient Does the patient have a Living Will? No Does the patient have Health Care Power of Strategy Lead? No Full Code 01/12/2022 12:00 AM 01/19/2022 2:51 PM This order reflects the patients wishes and were consensually agreed upon. Care Teams Slate Roofer Relationship Specialty Start Date End Date Olinda Wang, DO [address] [facility] [address] P[facility] - General Family Medicine 01/03/23 documented as of this encounter
--- OUTSIDE RECORDS SUMMARY | 2023-10-08 11:57 | External Medical Summary | Summary of Care ---
Author Name Unknown Organization [facility] Address [address] [place] [address] Phone [phone] Care Team Providers Care Tongue And Groove Machine Setter Name Role Phone Olinda Wang DO Primary Care Provider + Reason for Referral * Evaluate & Treat - Unlimited Visits (Within 10 days (routine)) - Authorized Specialty Diagnoses / Procedures Referred By Jordyn cueva Referred To Contact Physical Therapy / Physical Medicine And Rehab Diagnoses Chronic pain of both ankles Rosemarie Hall DPM [address] [place] [address] Referral ID Status Reason Start Date Expiration Date Visits Requested Visits Authorized [id number] Authorized Specialty Services Required 05/12/2023 999 999 Question Answer Referral Priority Within 10 days (routine) Comments Please evaluate and treat Reason for Visit * Reason Comments NEW PATIENT Encounter Details Date Type Department Care Team Description 05/12/2023 Office Visit Podiatry, [address] [place] [id number] Rosemarie Hall DPM [address] [place] [address] Chronic pain of both ankles*; Pes planovalgus, [...] pain 8/10 upon perform activity and tried [id number]-zeecesz brace at this week, but she has [...] (BMI) of 45.0 to 49.9 in adult ([facility]) Z68.42 Body mass index (BMI) of 40.0 to 44.9 in adult ([facility]) Z68.41 Unspecified psychosis not due to a substance or known physiological condition ([facility]) F29 Lack of adequate food and safe drinking water Z59.48, Z58.6 Fever R50.9 URI (upper respiratory infection) J06.9 Tachycardia R00.0 Amphetamine abuse ([facility]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 PT pulses 2/4 to BL extremities. APPEALS EXAMINER is brisk to all digits of lower [...] in this encounter Nursing Notes * Beryl Arias LPN - 05/12/2023 11:22 AM EDT Pt here for bilateral ankle pain. She states the pain started a few months ago. Her ankles give outon her and she falls documented in this encounter Plan of Treatment [...] the patient have Health Care Power of Replenishment Merchandising Associate? No Code Status History Code Status Date Activated Date Inactivated Comments Full Code 05/02/2022 11:32 PM 05/09/2022 1:15 PM This order reflects the patients wishes and were consensually agreed upon. Question Answer Comments Discussion of Advance Directives occurred with: Patient Does the patient have a Living Will? No Does the patient have Health Care Power of Replenishment Merchandising Associate? No Full Code 03/05/2022 5:38 AM 03/09/2022 4:16 PM This order reflects the patients wishes and were consensually agreed upon. Question Answer Comments Discussion of Advance Directives occurred with: Patient Does the patient have a Living Will? No Does the patient have Health Care Power of Replenishment Merchandising Associate? No Full Code 01/23/2022 1:50 AM 02/03/2022 5:03 PM This o rder reflects the patients wishes and were consensually agreed upon. Question Answer Comments Discussion of Advance Directives occurred with: Patient Does the patient have a Living Will? No Does the patient have Health Care Power of Replenishment Merchandising Associate? No Full Code 01/12/2022 12:00 AM 01/19/2022 2:51 PM This order reflects the patients wishes and were consensually agreed upon. Care Teams Tongue And Groove Machine Setter Relationship Specialty Start Date End Date Olinda Wang, DO [address] [facility] [address] PCP - General Family Medicine 01/03/23 documented as of this encounter
--- OUTSIDE RECORDS SUMMARY | 2023-10-08 11:57 | External Medical Summary ---
Author Name Unknown Address Unknown Organization [id number]:[facility] - [address] [place] [address] Laboratory Report Ordering Provider Test Date Status SARANYA BAJWA 05/14/2023 11:05:52 Final Observation Date Value Abnormality Reference (Units ) Status Folic Acid 05/14/2023 11:05:52 6.3 >4.5 (ng/ mL) Final Performing Location LABORATORY [facility] - [address] [place] [address]
--- OUTSIDE RECORDS SUMMARY | 2023-10-08 11:57 | External Medical Summary ---
Author Name Unknown Address Unknown Organization K01:[facility] [place] [address] [facility] [address] Laboratory Report Ordering Provider Test Date Status SARANYA BAJWA 05/14/2023 11:05:52 Final Observation Date Value Abnormality Reference (Units ) Status BUN 05/14/2023 11:05:52 11 6-20 (mg/dL) Final Creatinine 05/14/2023 11:05:52 0.6 0.5-1.0 (mg/dL) Final Glomerular filtration rate/1.73 sq M.predicted [Volume Rate/Area] in Serum, Plasma or Blood by Creatinine-based formula (CKD-EPI) 05/14/2023 11:05:52 >90 >=60 (mL/min) Final eGFR is calculated based on the CKD-EPI 2020 equation SODIUM 05/14/2023 11:05:52 138 135-146 (m mol/L) Final Potassium 05/14/2023 11:05:52 4.2 3.5-5.1 (m mol/L) Final Cl 05/14/2023 11:05:52 102 98-107 (mm ol/L) Final CO2 05/14/2023 11:05:52 23 22-32 (mmo l/L) Final Anion gap 05/14/2023 11:05:52 13 7-15 (mmol /L) Final Glucose 05/14/2023 11:05:52 108 70-120 (mg /dL) Final Albumin 05/14/2023 11:05:52 4.0 3.8-5.0 (g /dL) Final AST (Aspartate aminotransferase) 05/14/2023 11:05:52 35 10-35 (U/L) Fin al Alk Phos 05/14/2023 11:05:52 149 Above high normal 35 -130 (U/L) Final Bilirubin, Total 05/14/2023 11:05:52 0.3 <=1 .2 (mg/dL) Final Calcium 05/14/2023 11:05:52 8.9 8.4-10.2 ( mg/dL) Final Protein 05/14/2023 11:05:52 7.2 6.0-8.3 (g /dL) Final ALT (Alanine aminotransferase) 05/14/2023 11:05:52 59 Above high normal 10-35 (U/L) Final Performing Location [facility] [address] [facility] [address]
[2023-10-08] MEDS ORDERED: PIPERACILLIN/TAZOBACTAM 4.5 GM in DEXTROSE 5% MINI-B 100 ML IV SCH (12:00)
--- NOTE | 2023-10-08 12:13 | Electrocardiogram Report ---
Test Reason : Blood Pressure : / mmHG Vent. Rate : 109 BPM Atrial Rate : 109 BPM P-R Int : 144 ms QRS Dur : 086 ms QT Int : 368 ms P-R-T Axes : 039 029 039 degrees QTc Int : 495 ms Poor data quality, interpretation may be adversely affected Sinus tachycardia Septal infarct , age undetermined Abnormal ECG When compared with ECG of 08-OCT-2023 04:44, (unconfirmed) No significant change was found Confirmed by Cj Martines ([id number]) on 10/08/2023 12:12:35 PM Referred By: REFERRED SELF Confirmed By:Cj Martines
[2023-10-08] MEDS: UNASYN 3000MG / NS q6h IV SCH (12:24)
[2023-10-08] MEDS: ICU Protocol for HYPERglycemia SCH (12:26)
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
[2023-10-08 13:26] LABS: iSTAT Allen Test Pass; iSTAT Art Bld Gas pCO2 Correct 38 mmHg (35-46); iSTAT Art Bld Gas pH Corrected 7.387 (7.35-7.45); iSTAT Arterial Blood Gas HCO3 23 meg/L (19-24); iSTAT Arterial Blood Gas pCO2 36 mmHg (35-46); iSTAT Arterial Blood Gas pO2 70 mmHg (80-95); iSTAT Arterial Blood Gas pO2 C 76; iSTAT Carbon Dioxide 24 mmol/L (24-31); iSTAT FiO2 30 %; iSTAT Hematocrit 39 % (37-47); iSTAT Hemoglobin 13.3 g/dl (12.0-16.0); iSTAT Potassium 4.1 mmol/L (3.3-5.0); iSTAT Site L Radial; iSTAT Sodium 137 mmol/L (135-144)
--- NOTE | 2023-10-08 14:23 | Electrocardiogram Report ---
Test Reason : Blood Pressure : / mmHG Vent. Rate : 091 BPM Atrial Rate : 091 BPM P-R Int : 142 ms QRS Dur : 084 ms QT Int : 380 ms P-R-T Axes : 035 025 036 degrees QTc Int : 467 ms Normal sinus rhythm Normal ECG When compared with ECG of 08-OCT-2023 09:38, No significant change was found Confirmed by Cj Martines ([id number]) on 10/08/2023 2:22:41 PM Referred By: REFERRED SELF Confirmed By:Cj Martines
[2023-10-08] MEDS: ACETAMINOPHEN 1,000 MG/100 ML VIAL IV PRN (14:54)
[2023-10-08] MEDS: FAMOTIDINE 20 MG in SYRINGE 3 ML IV SCH (20:11)
[2023-10-08] MEDS ORDERED: ETOMIDATE 2 MG/ML 20 ML VIAL IV ONE (21:23)
[2023-10-08] MEDS ORDERED: SUCCINYLCHOLINE CHLORIDE 20 MG/ML 10 ML VIAL IV ONE (21:23)
[2023-10-08 22:04] LABS: Anion Gap 9 (3-11); BUN Creatinine Ratio 17.6 (10-20); Blood Urea Nitrogen 6 mg/dl (6-23); Calcium 7.3 mg/dl (8.6-10.3); Carbon Dioxide 19 mmol/L (21-32); Chloride 106 mmol/L (98-107); Creatinine Clr Calc Pharmacy 347.3 ml/min; Est GFR (African American) > 150.0 ml/min; Est GFR (Non-African American) > 150.0 ml/min; Glucose 80 mg/dl (70-99(Fasting)); Potassium 3.9 mmol/L (3.5-5.1); Sodium 134 mmol/L (136-145)
[2023-10-08] MEDS: fentaNYL citrate PF 100 MCG/2 ML VIAL IV PRN (22:57)
[2023-10-09 05:32] LABS: Basophils # (auto) 0.04 K/uL (0.00-0.20); Basophils % (auto) 0.5 %; Eosinophils % (auto) 1.1 %; Hematocrit (blood only) 36.3 % (37.0-47.0); Hemoglobin 12.1 g/dl (12.0-16.0); Immature Granulocytes # (auto) 0.03 K/uL (0.01-0.20); Immature Granulocytes % (auto) 0.3 %; Lymphocytes # (auto) 1.59 K/uL (1.20-3.40); Mean Corpuscular Hemoglobin 29.4 pg (25.0-34.0); Mean Corpuscular Hgb Conc 33.3 g/dL (32.0-36.0); Mean Corpuscular Volume 88.3 fL (80.0-100.0); Mean Platelet Volume 9.3 fL (9.4-12.4); Monocytes # (auto) 0.78 K/uL (0.11-0.59); Monocytes % (auto) 8.9 %; Neutrophils # (auto) 6.27 K/uL (1.40-6.50); Neutrophils % (auto) 71.2 %; Platelet Count 226 K/uL (130-400); RDW Coefficient of Variation 13.2 % (11.5-14.5); Red Blood Count 4.11 M/uL (4.20-5.40); White Blood Count 8.81 K/ul (4.8-10.8)
[2023-10-09 05:38] LABS: BUN Creatinine Ratio 15.5 (10-20); Calcium 8.1 mg/dl (8.6-10.3); Creatinine Clr Calc Pharmacy 203.6 ml/min; Est GFR (African American) 147.4 ml/min; Est GFR (Non-African American) 127.2 ml/min; Magnesium 2.1 mg/dl (1.7-2.4); Potassium 3.8 mmol/L (3.5-5.1)
--- NOTE | 2023-10-09 08:06 | Critical Care Progress Note ---
Date of Service October 09, 2023 Assessment & Plan (1) Intentional overdose: (2) Bipolar 1 disorder: (3) Mood disorder: (4) Learning disability: (5) PTSD (post-traumatic stress disorder): (6) Suicidal ideation: Plan Reason Critically Ill: 28 YOF with reported ingestion of Hydroxyzine- unable to confirm actual ingestion agent, amount, or time. Intubated in the EMD for increasing sedation and obtundation. Neuro - Intentional ingestion, Sedation for mechanical ventilation, hx of suicidal ideations, bipolar I, PTSD hx CAM ICU: [facility]AD[facility]INE On propofol - Continue with seizure precautions as well as frequent neurological evaluations - Pych consultation Cardiac - Tachycardia, Prolonged QT - Likely secondary to ingestion - Continue with magnesium replacement Keep potassium greater than 4, magnesium greater than 2 and phosphorus greater than 3 - EKG q4 hours follow Qtc Respiratory - Mechanically ventilated and intubated - Secondary to toxic encephalopathy resulting in obtundation -- Aspiration pneumonia Continue with antibiotic GI - HX GERD, Elevated LFTS - Continue PPI --Transaminitis Mildly elevated AST ALT and alk phos Right upper quadrant ultrasound did not show any acute findings on 10/08/2023 RENAL/LYTES - Monitor BUNs/creatinine Avoid nephrotoxic medication - No acute needs - Continue Abrams catheter while intubated and sedated- remove once extubated ENDO - Hyperglycemia without diagnosis of DM, Hypothyroidism - Continue Synthroid - ICU hyperglycemia protocol HEME - No acute needs ID - -- Aspiration pneumonia Continue with antibiotic Nasal MRSA negative SARS-CoV-2 negative --Prophylaxis VTE: Lovenox GI: Pepcid Lines: Peripheral Diet: N.p.o. Plan: In/out: +1.9 L, urine output 700 mL Continue with antibiotics for total of 5 days. Potassium being replaced. Last QTc was 490 9 PM on 10/08/2023. Repeat EKG today Trial of extubation today. Patient will be one-to-one observation following that. Psych consultation to follow. I have personally spent 36 minutes of critical care time in the direct management of this patient. This is a life/limb threatening event. This includes time spent evaluating patient, direct bedside care, chart review, placing orders, interpretation of diagnostic studies, discussion with consultants, patient, and family members, as well as other required patient management activities. This time is exclusive of all separately billable procedures, and teaching time and separate from and in addition to any other critical care service time. Thank you for allowing us to participate in the care of this patient. Please refer to my attending physician's documentation for any further recommendations. Admission and Anticipated Discharge Date Admission Date: October 07, 2023 Subjective Patient seen and examined at bedside. No acute distress, notable since overnight She was RASS -1 on low-dose of propofol Answering all the questions appropriately. Denied any headache, no chest pain, no shortness of breath No abdominal pain. Was asking to take the tube out Review of Systems 2 Review of Systems: All systems reviewed & are unremarkable except as noted in Subjective Physical Exam 2 Physical Exam: Constitutional: No acute distress HEENT: PERRLA Respiratory system: Good air entry bilaterally, no wheeze, rhonchi, mild crackles bilateral lower lobes CVS: S1-S2 positive, no murmurs or gallops Abdomen: Soft, nontender, nondistended, positive bowel sounds x4, obese Extremities: +2 pulses bilaterally radialis/ dorsalis pedis, no cyanosis, no edema Neuro: Breathing over the vent, RASS -1, answering all the questions appropriately Psych: Normal mood and affect G/U: Positive Abrams Skin: no rashes, warm and dry Lymphatic: no cervical or axillary lymphadenopathy Results & Data Results & Data Vital Signs (Past 12 Hours) Vital Signs Temp Pulse Resp BP Pulse Ox O2 Del Method FiO2 10/09/23 07:48 88 19 97 30 10/09/23 05:45 37.6 C H 97 H 21 94 10/09/23 05:40 30 10/09/23 05:30 37.5 C 86 18 95 10/09/23 05:30 111/89 10/09/23 05:00 106/74 10/09/23 05:00 37.5 C 81 18 95 10/09/23 04:30 101/65 10/09/23 04:30 37.4 C 83 18 95 10/09/23 04:00 98/67 L 10/09/23 04:00 37.4 C 84 18 94 10/09/23 03:43 82 18 96 30 10/09/23 03:31 101/68 10/09/23 03:31 37.4 C 87 20 95 10/09/23 03:00 106/65 10/09/23 03:00 37.4 C 88 18 95 02/17/24 02:30 100/64 10/09/23 02:30 37.5 C 84 18 96 10/09/23 02:00 108/64 10/09/23 02:00 37.7 C H 86 18 95 10/09/23 01:49 90 10/09/23 01:33 Mechanical Vent 30 10/09/23 01:32 110 H 10/09/23 01:15 38.1 C H 96 H 20 95 10/09/23 01:00 38.0 C H 84 26 H 95 10/09/23 01:00 107/74 10/09/23 00:45 38.0 C H 84 18 95 10/09/23 00:30 114/78 10/09/23 00:30 38.0 C H 84 18 95 10/09/23 00:15 37.9 C H 87 18 95 10/09/23 00:00 107/72 10/09/23 00:00 37.9 C H 93 H 18 94 10/09/23 00:00 30 10/08/23 23:49 93 H 10/08/23 23:45 37.9 C H 89 18 94 10/08/23 23:30 111/71 10/08/23 23:30 38.0 C H 92 H 18 94 10/08/23 23:00 108/70 10/08/23 23:00 38.3 C H 94 H 20 100 10/08/23 22:44 97 H 24 95 30 10/08/23 22:00 38.3 C H 94 H 22 98 10/08/23 22:00 125/84 10/08/23 21:00 115/81 10/08/23 21:00 38.1 C H 88 19 97 10/08/23 20:41 108 H 19 95 30 Laboratory Results 10/09/23 05:04 10/09/23 05:04 Coding Level of Care Code 36143 CRITICAL CARE 1ST 30-74M Diagnoses Intentional overdose T50.902A Bipolar 1 disorder F31.9 Mood disorder F39 Learning disability F81.9 PTSD (post-traumatic stress disorder) F43.10 Suicidal ideation R45.851
--- NOTE | 2023-10-09 13:41 | Hospitalist Progress Note ---
Date of Service October 09, 2023 Assessment & Plan (1) Intentional overdose: Plan: 28yo female presenting after intentional overdose - presumably took 10-15 tablets of hydroxyzine at 20:30. Patient intubated for airway protection in the ER as she had progressive decline of her mental status -Currently intubated, but sedation has been turned off. Patient is awake and alert For trial of extubation today- -Vent management per electrical wiring lineman, pressure recommendations -Seizure precautions -Psychiatry to see postextubation -Continue one-to-one sitter and suicide observation -Currently on 302 -Mild QT prolongation on EKG, continue to monitor (2) Bipolar 1 disorder: Plan: Chronic with severe depression -Hold home medications for now. Pharmacy to reconcile medication Psychiatry on consult (3) Asthma: Plan: Chronic. No wheezing appreciated on exam -Albuterol PRN Plan Continue to monitor in the hospital, awaiting full psychiatric evaluation Admission and Anticipated Discharge Date Admission Date: October 07, 2023 Subjective Patient seen and examined, was intubated but not sedated, awake and alert and answering questions. For trial of extubation today Review of Systems Review of Systems: All systems reviewed are negative, apart from the ones contained in the history. Physical Exam Physical Exam: The patient is awake, alert and oriented 3, well developed and well nourished, normocephalic and atraumatic, lying in bed and in no acute distress. HEENT--PERRL, EOMI, mucous membranes and oropharynx mildly dry Neck--supple. No JVD. No bruits. Thyroid normal, trachea midline, no adenopathy. Heart--normal S1 and S2. No murmurs, rubs or gallops. Lungs--clear bilaterally, no respiratory distress, no accessory muscle use. Abdomen--normal bowel sounds and soft. Mild epigastric and left sided abdominal pain Extremities--no cyanosis or clubbing. No edema. Dermatologic--normal skin turgor, normal color, no abnormal lymph nodes, no rash. Neurologic--cranial nerves II through XII grossly intact. Rheumatologic--normal range of motion. Psychiatric--normal affect. Results & Data Results & Data Vital Signs (Past 12 Hours) Vital Signs Temp Pulse Resp BP Pulse Ox FiO2 10/09/23 11:00 100.0 F H 92 H 21 116/80 95 02/17/24 10:00 99.9 F H 91 H 21 121/73 96 10/09/23 09:00 99.7 F H 78 19 108/76 93 10/09/23 08:00 99.3 F 86 18 113/75 96 10/09/23 08:00 88 10/09/23 07:48 88 19 97 30 10/09/23 07:00 99.5 F 87 22 105/75 96 10/09/23 05:45 99.7 F H 97 H 21 94 10/09/23 05:40 30 10/09/23 05:30 99.5 F 86 18 95 10/09/23 05:30 111/89 10/09/23 05:00 106/74 10/09/23 05:00 99.5 F 81 18 95 10/09/23 04:30 101/65 10/09/23 04:30 99.3 F 83 18 95 10/09/23 04:00 98/67 L 10/09/23 04:00 99.3 F 84 18 94 10/09/23 03:43 82 18 96 30 10/09/23 03:31 101/68 10/09/23 03:31 99.3 F 87 20 95 10/09/23 03:00 106/65 10/09/23 03:00 99.3 F 88 18 95 10/09/23 02:30 100/64 10/09/23 02:30 99.5 F 84 18 96 10/09/23 02:00 108/64 10/09/23 02:00 99.9 F H 86 18 95 10/09/23 01:49 90 PG Care Time/CCT Total # of Minutes Spent Total Time Spent with Patient: Total time spent is greater than 50% in coordination of care (as documented) at patient's floor/unit and/or counseling patient: Coding Level of Care Code 92240 SUB INP/OBS CARE 2/35MIN Diagnoses Intentional overdose T50.902A Bipolar 1 disorder F31.9 Asthma J45.909 Time Spent (min) 35
--- NOTE | 2023-10-09 16:31 | Electrocardiogram Report ---
Test Reason : Blood Pressure : / mmHG Vent. Rate : 084 BPM Atrial Rate : 084 BPM P-R Int : 148 ms QRS Dur : 076 ms QT Int : 386 ms P-R-T Axes : 037 022 036 degrees QTc Int : 456 ms Normal sinus rhythm Normal ECG When compared with ECG of 08-OCT-2023 13:21, No significant change was found Confirmed by Jessu Ricardo ([id number]) on 10/09/2023 4:31:07 PM Referred By: REFERRED SELF Confirmed By:Jesus Ricardo
--- NOTE | 2023-10-09 18:07 | Electrocardiogram Report ---
Test Reason : Blood Pressure : / mmHG Vent. Rate : 094 BPM Atrial Rate : 094 BPM P-R Int : 148 ms QRS Dur : 080 ms QT Int : 360 ms P-R-T Axes : 041 020 039 degrees QTc Int : 451 ms Normal sinus rhythm Normal ECG When compared with ECG of 08-OCT-2023 13:21, No significant change was found Confirmed by Jesus Ricardo ([id number]) on 10/09/2023 6:07:14 PM Referred By: REFERRED SELF Confirmed By:Jesus Ricardo
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
--- NOTE | 2023-10-09 18:11 | Electrocardiogram Report ---
Test Reason : Blood Pressure : / mmHG Vent. Rate : 095 BPM Atrial Rate : 095 BPM P-R Int : 142 ms QRS Dur : 076 ms QT Int : 360 ms P-R-T Axes : 049 029 036 degrees QTc Int : 453 ms Normal sinus rhythm Normal ECG When compared with ECG of 08-OCT-2023 21:40, (unconfirmed) No significant change was found Confirmed by Jesus Ricardo ([id number]) on 10/09/2023 6:10:48 PM Referred By: REFERRED SELF Confirmed By:Jesus Ricardo
--- NOTE | 2023-10-09 18:14 | Electrocardiogram Report ---
Test Reason : Blood Pressure : / mmHG Vent. Rate : 087 BPM Atrial Rate : 087 BPM P-R Int : 150 ms QRS Dur : 072 ms QT Int : 396 ms P-R-T Axes : 040 025 024 degrees QTc Int : 476 ms Normal sinus rhythm Normal ECG When compared with ECG of 09-OCT-2023 00:56, (unconfirmed) No significant change was found Confirmed by Jesus Ricardo ([id number]) on 10/09/2023 6:13:55 PM Referred By: REFERRED SELF Confirmed By:Jesus Ricardo
[2023-10-10 07:22] LABS: Marijuana Quant, GCMS Urine 104 ng/mL (<5)
[2023-10-10 08:46] LABS: Basophils # (auto) 0.03 K/uL (0.00-0.20); Basophils % (auto) 0.4 %; Eosinophils # (auto) 0.14 K/uL (0.00-0.50); Eosinophils % (auto) 1.7 %; Hematocrit (blood only) 43.3 % (37.0-47.0); Hemoglobin 13.9 g/dl (12.0-16.0); Immature Granulocytes # (auto) 0.06 K/uL (0.01-0.20); Immature Granulocytes % (auto) 0.7 %; Lymphocytes # (auto) 1.46 K/uL (1.20-3.40); Lymphocytes % (auto) 18.1 %; Mean Corpuscular Hemoglobin 29.1 pg (25.0-34.0); Mean Corpuscular Hgb Conc 32.1 g/dL (32.0-36.0); Mean Corpuscular Volume 90.8 fL (80.0-100.0); Mean Platelet Volume 8.9 fL (9.4-12.4); Monocytes # (auto) 0.44 K/uL (0.11-0.59); Monocytes % (auto) 5.5 %; Neutrophils # (auto) 5.94 K/uL (1.40-6.50); Neutrophils % (auto) 73.6 %; Platelet Count 264 K/uL (130-400); RDW Standard Deviation 43.7 fL (36.4-46.3); Red Blood Count 4.77 M/uL (4.20-5.40); White Blood Count 8.07 K/ul (4.8-10.8)
[2023-10-10 08:53] LABS: BUN Creatinine Ratio 12.5 (10-20); Creatinine Clr Calc Pharmacy 183.6 ml/min; Est GFR (African American) 142.7 ml/min; Est GFR (Non-African American) 123.2 ml/min; Magnesium 2.1 mg/dl (1.7-2.4); Potassium 4.2 mmol/L (3.5-5.1)
--- NOTE | 2023-10-10 11:05 | Hospitalist Progress Note ---
Date of Service October 10, 2023 Assessment & Plan (1) Intentional overdose: Plan: 28yo female presenting after intentional overdose - presumably took 10-15 tablets of hydroxyzine at 20:30. Patient intubated for airway protection in the ER as she had progressive decline of her mental status -Currently intubated, but sedation has been turned off. Patient is awake and alert For trial of extubation today- -Vent management per health information technologist, pressure recommendations -Seizure precautions -Psychiatry has evaluated, thanks for the detailed evaluation -Continue one-to-one sitter and suicide observation -Currently on 302 -Patient is medically cleared and medically stable for inpatient psych admission (2) Bipolar 1 disorder: Plan: Chronic with severe depression -Hold home medications for now. Pharmacy to reconcile medication Psychiatry on consult (3) Asthma: Plan: Chronic. No wheezing appreciated on exam -Albuterol PRN Plan Patient is medically cleared and medically stable for inpatient psych admission. Admission and Anticipated Discharge Date Admission Date: October 07, 2023 Subjective Patient seen and examined, now awake and alert and oriented, tolerating breakfast Review of Systems Review of Systems: All systems reviewed are negative, apart from the ones contained in the history. Physical Exam Physical Exam: The patient is awake, alert and oriented 3, well developed and well nourished, normocephalic and atraumatic, lying in bed and in no acute distress. HEENT--PERRL, EOMI, mucous membranes and oropharynx mildly dry Neck--supple. No JVD. No bruits. Thyroid normal, trachea midline, no adenopathy. Heart--normal S1 and S2. No murmurs, rubs or gallops. Lungs--clear bilaterally, no respiratory distress, no accessory muscle use. Abdomen--normal bowel sounds and soft. Mild epigastric and left sided abdominal pain Extremities--no cyanosis or clubbing. No edema. Dermatologic--normal skin turgor, normal color, no abnormal lymph nodes, no rash. Neurologic--cranial nerves II through XII grossly intact. Rheumatologic--normal range of motion. Psychiatric--normal affect. Results & Data Results & Data Vital Signs (Past 12 Hours) Vital Signs Temp Pulse Pulse Resp BP BP Pulse Ox 10/10/23 08:06 98.4 F 93 H 17 118/80 94 10/10/23 07:35 02/18/24 04:22 98.2 F 93 H 18 101/75 97 10/10/23 00:00 98 H 10/09/23 23:12 98.8 F 104 H 18 113/76 96 O2 Del Method O2 Flow Rate 10/10/23 08:06 Room Air 10/10/23 07:35 Room Air 10/10/23 04:22 Nasal Cannula 3 10/10/23 00:00 10/09/23 23:12 Nasal Cannula 3 PG Care Time/CCT Total # of Minutes Spent Total Time Spent with Patient: Total time spent is greater than 50% in coordination of care (as documented) at patient's floor/unit and/or counseling patient: Coding Level of Care Code 13399 SUB INP/OBS CARE 2/35MIN Diagnoses Intentional overdose T50.902A Bipolar 1 disorder F31.9 Asthma J45.909 Time Spent (min) 35
--- NOTE | 2023-10-10 20:17 | Discharge Summary ---
Date of Service October 10, 2023 Admission HPI Per Admitting Provider Alicia Jones is a 28yo female with history of Asthma, PTSD, Anxiety/Depression and Bipolar I presenting from [facility] after an intentional overdose of presumably Hydroxyzine. Patient intubated at time of encounter - history obtained through discussion with ER staff and chart review. At 20:30 patient notified staff member that she took 10-15 tablets of hydroxyzine because "it was too much". Upon arrival to the ER patient with GSC of 9. She was being managed conservatively but her mental state declined and she became less arousable. She was ultimately intubated for airway protection. Poison Control contacted by ER staff - recommend Magnesium for the QTc prolongation with repeat EKG testing and Ativan as needed for seizure activity. ER Course: NSS x 2L Mg x 2gm Propofol KCL 10mEq Admission Exam Per Admitting Provider General: patient intubated and sedated Skin: warm, dry, intact, no rashes or lesions HEENT: NC/AT, PERRL, anicteric sclera, conjunctiva without injection, external ear normal to inspection and nontender, nares patent, moist mucus membranes, ETT in place, neck supple, trachea midline, no LAD, no thyromegaly, no JVD Heart: +S1/S2, regular, no m/r/g Lungs: equal air entry bilaterally, coarse breath sounds left lung Abd: +BS, soft, ND, no masses/organomegaly/ascites Ext: warm, 2+ pulses in UE/LE bilaterally, no clubbing/cyanosis or edema Neuro: moving all extremities prior to intubation. withdraws from noxious stimuli Principal Diagnosis Intentional overdose Discharge Exam Constitutional: well-appearing, no acute distress HEENT: NCAT, no conjunctival injection CV: regular rhythm, no murmur appreciated, extremities well-perfused, no LE edema Resp: CTABL, no wheezes/rales/rhonchi appreciated, no increased work of breathing GI: soft, nondistended, nontender, BS normoactive MSK: no gross deformities appreciated Skin: warm, dry, no rash appreciated Neuro: alert, oriented, no focal neurologic deficit appreciated Discharge Data Allergies Allergy/AdvReac Type Severity Reaction Status Date / Time aspirin Allergy Intermediate hives Verified 01/29/23 13:58 Consultations 10/07/23 23:34 ED Decision to Admit Stat 10/08/23 01:18 Consult Construction Scheduler Routine Consult Psychiatry Routine Ordered Studies Head CT 10/07/23 21:33 Exam(s): CT HEAD Without Contrast EXAM: CT Head Without Intravenous Contrast CLINICAL HISTORY: Reason for exam: ams. TECHNIQUE: Axial computed tomography images of the head/brain without intravenous contrast. CTDI is 79 mGy and DLP is 3073 mGy-cm. Automated exposure control was utilized for the study. A dose lowering technique was utilized adhering to the principles of ALARA. COMPARISON: No relevant prior studies available. FINDINGS: Limitations: Motion artifact. Brain: Unremarkable. No hemorrhage. No significant white matter disease. No edema. Cifuentes-white matter differentiation maintained. Ventricles: Unremarkable. No hydrocephalus. Bones/joints: Unremarkable. No acute fracture. Soft tissues: Unremarkable. Sinuses: Unremarkable as visualized. No acute sinusitis. Mastoid air cells: Unremarkable as visualized. No mastoid effusion. IMPRESSION: Degraded by motion. No acute intracranial process as visualized. Electronically signed by: Jeanne Davidson M.D. 10/07/23 22:40 PM Chest X-Ray 10/07/23 23:23 SINGLE VIEW CHEST CLINICAL HISTORY: Respiratory failure. Intubation. FINDINGS: An AP, portable, supine chest radiograph is obtained. No prior studies are available for comparison at the time of dictation. An enteric tube has been placed. The tip projects below the diaphragm over the stomach. An endotracheal tube has been placed. The tip projects over the right mainstem bronchus. The cardiomediastinal silhouette is obscured. There is consolidation throughout the left lung, as well as airspace opacities in the right upper lung, likely represent atelectasis secondary to endotracheal tube positioning. No large pleural effusion or pneumothorax is seen. The bony thorax is grossly intact. IMPRESSION: 1. Endotracheal and enteric tubes have been placed as above. 2. The endotracheal tube projects over the right mainstem bronchus. This has been repositioned on subsequent films. 3. Consolidation throughout the left lung as well as developing airspace consolidation in the right upper lobe likely represents atelectasis secondary to endotracheal tube positioning. Attention at follow-up is recommended. ACT 112: Negative or not required by law. Electronically signed by: Raghu Sanchez M.D. 10/08/2023 7:51 AM Chest X-Ray 10/07/23 23:29 SUPINE PORTABLE AP CHEST RADIOGRAPH CLINICAL HISTORY: ett placement COMPARISON STUDY: Chest radiograph October 07, 2023 at 11:25 PM FINDINGS: The endotracheal tube has been partially withdrawn. The tip is 1.5 cm above the jose. Tip of nasogastric tube is at least within the distal body of the stomach. Left lung aeration has significantly improved. There are persistent bilateral airspace opacities, greater within the left lung. Enlargement of the cardiac silhouette and mediastinal widening are probably technical. No pneumothorax or pleural effusion is identified on supine exam. IMPRESSION: 1. Tip of endotracheal tube 1.5 cm above the jose. 2. Interval improvement in left lung aeration. Persistent bilateral airspace opacities, greater within the left lung. ACT 112: Negative or not required by law. Electronically signed by: Jomar Corona M.D. 10/08/2023 7:01 AM Liver Ultrasound 10/08/23 05:20 ULTRASOUND RIGHT UPPER QUADRANT ABDOMEN CLINICAL HISTORY: Elevated hepatic transaminases. Fever.. COMPARISON STUDY: Abdominal CT dated 12/09/2022. TECHNIQUE: Real-time, grayscale, and color flow sonography of the right upper quadrant of the abdomen was performed. Images are reviewed in the transverse and longitudinal planes. FINDINGS: Liver: The liver is enlarged and demonstrates heterogeneously increased echotexture indicating steatosis. There is no intrahepatic biliary ductal dilatation. The main portal vein is patent. Gallbladder: The gallbladder is normal in appearance. No gallstones are identified. There is no gallbladder wall thickening or pericholecystic fluid. A sonographic Tineo's sign could not be assessed due to patient condition. The common bile duct measures up to 0.3 cm in diameter. Pancreas: Visualized portions of the pancreatic head and body are normal in appearance. The splenic vein is patent. Right kidney: Survey images of the right kidney demonstrate normal size and echotexture. There is no hydronephrosis. Ascites: None. IMPRESSION: 1. No acute sonographic abnormality is identified in the right upper quadrant. No gallstones are seen. 2. Hepatomegaly and hepatic steatosis. ACT 112: Negative or not required by law. Electronically signed by: Raghu Sanchez M.D. 10/08/2023 8:00 AM Chest X-Ray 10/08/23 05:30 XR chest 1V portable CLINICAL HISTORY: eval ETT, OGT, and lung marie COMPARISON STUDY: Chest radiograph October 07, 2023 at 11:29 PM. FINDINGS: Tip of endotracheal tube is 2.6 cm above the jose. Tip of nasogastric tube is difficult to visualize on this exam but at least within the stomach. No pneumothorax or pleural effusion is identified. Cardiac size is at upper limits of normal. Bibasilar opacities are present. IMPRESSION: 1. Tip of endotracheal tube 3.6 cm above the jose. 2. Bibasilar consolidation. This could reflect pneumonia, aspiration pneumonitis or atelectasis. ACT 112: Negative or not required by law. Electronically signed by: Jomar Corona M.D. 10/08/2023 7:43 AM 10/07/23 21:33 CT head/brain wo con Stat 10/08/23 05:20 US liver Routine Hospital Course (1) Intentional overdose: (2) Suicidal ideation: (3) Asthma: (4) Learning disability: (5) Mood disorder: (6) Bipolar 1 disorder: (7) Aspiration pneumonia: Plan Intentional overdose: 28yo female presenting after intentional overdose - presumably took 10-15 tablets of hydroxyzine at 20:30. Patient intubated for airway protection in the ER as she had progressive decline of her mental status -Currently intubated, but sedation has been turned off. Patient is awake and alert For trial of extubation today- -Vent management per safe and vault mechanic, pressure recommendations -Seizure precautions -Psychiatry has evaluated, thanks for the detailed evaluation -Continue one-to-one sitter and suicide observation -Currently on 302 -Patient is medically cleared and medically stable for inpatient psych admission aspiration pneumonia -Continue on Augmentin 875 bid for 10-14 days. Bipolar 1 disorder: Chronic with severe depression -Hold home medications for now. Pharmacy to reconcile medication Psychiatry on consult Asthma Chronic. No wheezing appreciated on exam -Albuterol PRN Plan Patient is medically cleared and medically stable for inpatient psych admission. Total Time Total Time Spent Total Time Spent (In Minutes): 30 Discharge Plan Discharge Items Patient Disposition: Transfer [facility] Reason For Visit: INTENTIONAL OVERDOSE Discharge Diagnosis: Intentional overdose Activity: Resume your previous activity Non-emergency contact: Primary Care Provider Call non-emergency contact if: you have any medication questions Follow-up/Referrals: PCP,NO [Primary Care Provider] - Diet: Regular Addtl Attending Provider Instructions: Intentional overdose: 28yo female presenting after intentional overdose - presumably took 10-15 tablets of hydroxyzine at 20:30. Patient intubated for airway protection in the ER as she had progressive decline of her mental status -Currently intubated, but sedation has been turned off. Patient is awake and alert For trial of extubation today- -Vent management per safe and vault mechanic, pressure recommendations -Seizure precautions -Psychiatry has evaluated, thanks for the detailed evaluation -Continue one-to-one sitter and suicide observation -Currently on 302 -Patient is medically cleared and medically stable for inpatient psych admission aspiration pneumonia -Continue on Augmentin 875 bid for 10-14 days. Bipolar 1 disorder: Chronic with severe depression -Hold home medications for now. Pharmacy to reconcile medication Psychiatry on consult Asthma Chronic. No wheezing appreciated on exam -Albuterol PRN Plan Patient is medically cleared and medically stable for inpatient psych admission. Pending Studies at Discharge: No Stand-Alone Forms: My [facility] 99Bill, Suicide Prevention Resources Medications and DC Order Prescriptions: New amoxicillin-pot clavulanate 875-125 mg Tablet 1 tab PO BIDM 14 Days Qty: 28 0RF Continued levothyroxine 25 mcg tablet 25 mcg PO DAILY Qty: 30 2RF famotidine 20 mg tablet 20 mg PO HS Qty: 90 3RF drospirenone-ethinyl estradiol [ALFA (28)] 3-0.02 mg tablet 1 tab PO DAILY Qty: 84 1RF cetirizine 10 mg tablet 10 mg PO DAILY Qty: 30 0RF fluticasone propionate [Allergy Relief (fluticasone)] 50 mcg/actuation spray,suspension 2 spray intranasal DAILY Qty: 16 0RF Rx Instructions: administer into each nostril fluticasone propionate [Allergy Relief (fluticasone)] 50 mcg/actuation spray,suspension See Rx Instructions .Route .COMPLEX Qty: 9.9 2RF Rx Instructions: administer into each nostril 2 sprays BID x 3 days then 2 sprays each nostril at Bedtime thereafter prednisone 20 mg tablet 40 mg PO DAILY 5 Days Qty: 10 0RF fexofenadine [Guerda Allergy] 180 mg tablet 180 mg PO DAILY Qty: 30 0RF aripiprazole 5 mg tablet 5 mg PO DAILY melatonin 3 mg tablet 6 mg PO HS PRN (Reason: Sleep) albuterol sulfate 90 mcg/actuation HFA aerosol inhaler 2 puff inhalation QID doxepin 50 mg capsule 50 mg PO DAILY sennosides-docusate sodium [Senna with Docusate Sodium] 8.6-50 mg tablet 1 tab-cap PO BID prazosin 2 mg capsule 4 mg PO QPM Vraylar 3 mg capsule 3 mg PO DAILY Discontinued amoxicillin 500 mg capsule 500 mg PO TID doxycycline monohydrate 100 mg tablet 100 mg PO BID Qty: 20 0RF Discharge Orders: Discharge Order (Routine); Ordered 10/10/23 Ordered By: Raghu Yanes Admission Data Admit Date/Time: 10/07/23 23:41 Attending Provider: Alexandra Cartagnea Admit Provider: Rachel Leigh Primary Care Provider: PCP,NO Other Providers: Rachel Leigh; Alisa Mercado; Alyson Wilder; Martha Thompson; Denis Davila; Alex Sheldon; Judah Mooney Jr
--- NOTE | 2023-10-10 22:19 | Electrocardiogram Report ---
Test Reason : Blood Pressure : / mmHG Vent. Rate : 110 BPM Atrial Rate : 110 BPM P-R Int : 148 ms QRS Dur : 078 ms QT Int : 346 ms P-R-T Axes : 044 028 037 degrees QTc Int : 468 ms Sinus tachycardia Otherwise normal ECG When compared with ECG of 09-OCT-2023 05:29, (unconfirmed) No significant change was found Confirmed by Jesus Ricardo ([id number]) on 10/10/2023 10:19:34 PM Referred By: REFERRED SELF Confirmed By:Jesus Ricardo
--- NOTE | 2023-10-11 06:41 | Electrocardiogram Report ---
Test Reason : Blood Pressure : / mmHG Vent. Rate : 092 BPM Atrial Rate : 092 BPM P-R Int : 148 ms QRS Dur : 076 ms QT Int : 378 ms P-R-T Axes : 041 040 036 degrees QTc Int : 467 ms Normal sinus rhythm Normal ECG When compared with ECG of 09-OCT-2023 12:32, (unconfirmed) No significant change was found Confirmed by Jesus Ricardo ([id number]) on 10/11/2023 6:41:11 AM Referred By: REFERRED SELF Confirmed By:Jesus Ricardo
[2023-10-11] MEDS ORDERED: AMOXICILLIN/CLAVULANATE 875 MG TAB PO SCH (08:00)
--- NOTE | 2023-10-12 07:23 | Discharge Summary ---
Date of Service October 10, 2023 Admission HPI Per Admitting Provider Alicia Jones is a 28yo female with history of Asthma, PTSD, Anxiety/Depression and Bipolar I presenting from [facility] after an intentional overdose of presumably Hydroxyzine. Patient intubated at time of encounter - history obtained through discussion with ER staff and chart review. At 20:30 patient notified staff member that she took 10-15 tablets of hydroxyzine because "it was too much". Upon arrival to the ER patient with GSC of 9. She was being managed conservatively but her mental state declined and she became less arousable. She was ultimately intubated for airway protection. Poison Control contacted by ER staff - recommend Magnesium for the QTc prolongation with repeat EKG testing and Ativan as needed for seizure activity. ER Course: NSS x 2L Mg x 2gm Propofol KCL 10mEq Principal Diagnosis overdose Discharge Exam The patient is awake, alert and oriented 3, well developed and well nourished, normocephalic and atraumatic, lying in bed and in no acute distress. HEENT--PERRL, EOMI, mucous membranes and oropharynx mildly dry Neck--supple. No JVD. No bruits. Thyroid normal, trachea midline, no adenopathy. Heart--normal S1 and S2. No murmurs, rubs or gallops. Lungs--clear bilaterally, no respiratory distress, no accessory muscle use. Abdomen--normal bowel sounds and soft. Mild epigastric and left sided abdominal pain Extremities--no cyanosis or clubbing. No edema. Dermatologic--normal skin turgor, normal color, no abnormal lymph nodes, no rash. Neurologic--cranial nerves II through XII grossly intact. Rheumatologic--normal range of motion. Psychiatric--normal affect. Discharge Data Allergies Allergy/AdvReac Type Severity Reaction Status Date / Time aspirin Allergy Intermediate hives Verified 01/29/23 13:58 Consultations 10/07/23 23:34 ED Decision to Admit Stat 10/08/23 01:18 Consult Enterprise Application Architect Routine Consult Psychiatry Routine Ordered Studies 10/07/23 21:33 CT head/brain wo con Stat 10/08/23 05:20 US liver Routine Hospital Course (1) Intentional overdose: 28yo female presenting after intentional overdose - presumably took 10-15 tablets of hydroxyzine at 20:30. Patient intubated for airway protection in the ER as she had progressive decline of her mental status -Currently intubated, but sedation has been turned off. Patient is awake and alert For trial of extubation today- -Vent management per technology solutions architect, pressure recommendations -Seizure precautions -Psychiatry has evaluated, thanks for the detailed evaluation -Continue one-to-one sitter and suicide observation -Currently on 302 -Patient is medically cleared and medically stable for inpatient psych admission (2) Bipolar 1 disorder: Chronic with severe depression -Hold home medications for now. Pharmacy to reconcile medication Psychiatry on consult (3) Asthma: Chronic. No wheezing appreciated on exam -Albuterol PRN Plan Patient is medically cleared and medically stable for inpatient psych admission. Total Time Total Time Spent Total Time Spent (In Minutes): 35 Discharge Plan Discharge Items Patient Disposition: Transfer Behavioral Health Fac Reason For Visit: INTENTIONAL OVERDOSE Discharge Diagnosis: Intentional overdose Activity: Resume your previous activity Non-emergency contact: Primary Care Provider Call non-emergency contact if: you have any medication questions Follow-up/Referrals: PCP,NO [Primary Care Provider] - Diet: Regular Addtl Attending Provider Instructions: Intentional overdose: 28yo female presenting after intentional overdose - presumably took 10-15 tablets of hydroxyzine at 20:30. Patient intubated for airway protection in the ER as she had progressive decline of her mental status -Currently intubated, but sedation has been turned off. Patient is awake and alert For trial of extubation today- -Vent management per technology solutions architect, pressure recommendations -Seizure precautions -Psychiatry has evaluated, thanks for the detailed evaluation -Continue one-to-one sitter and suicide observation -Currently on 302 -Patient is medically cleared and medically stable for inpatient psych admission aspiration pneumonia -Continue on Augmentin 875 bid for 10-14 days. Bipolar 1 disorder: Chronic with severe depression -Hold home medications for now. Pharmacy to reconcile medication Psychiatry on consult Asthma Chronic. No wheezing appreciated on exam -Albuterol PRN Plan Patient is medically cleared and medically stable for inpatient psych admission. Pending Studies at Discharge: No Stand-Alone Forms: My [facility], Suicide Prevention Resources Medications and DC Order Prescriptions: New amoxicillin-pot clavulanate 875-125 mg Tablet 1 tab PO BIDM 14 Days Qty: 28 0RF Discontinued amoxicillin 500 mg capsule 500 mg PO TID doxycycline monohydrate 100 mg tablet 100 mg PO BID Qty: 20 0RF No Action Abilify Maintena 300 mg suspension,extended rel syring 300 mg IM MONTHLY Discharge Orders: Discharge Order (Routine); Ordered 10/10/23 Ordered By: Raghu Yanes Admission Data Admit Date/Time: 10/07/23 23:41 Attending Provider: Alexandra Cartagena Admit Provider: Rachel Leigh Primary Care Provider: PCP,NO Other Providers: Rachel Leigh; Alisa Mercado; Alyson Wilder; Martha Thompson; Denis Davila; Alex Sheldon; Judah Mooney Jr Other Interventions: Discharge Summary Assessment (RN) Last Done: 10/10/23 20:33 Coding Level of Care Code 61894 INP/OBS DISCH >30 MIN Diagnoses Intentional overdose T50.902A Bipolar 1 disorder F31.9 Asthma J45.909 Time Spent (min) 35
== END 2023-10-10 21:24 | DRG 917 ==
LOC: ED 21:11 → SUATTDRO 23:41 → 1E 23:41 → 2S 10-09 16:14
DX: R45.851 Suicidal ideations; F17.210 Nicotine dependence, cigarettes, uncomplicated; Z88.6 Allergy status to analgesic agent; J45.909 Unspecified asthma, uncomplicated; Z79.899 Other long term (current) drug therapy; F81.9 Developmental disorder of scholastic skills, unspecified; R73.9 Hyperglycemia, unspecified; F43.10 Post-traumatic stress disorder, unspecified; G92.9 Unspecified toxic encephalopathy; F31.9 Bipolar disorder, unspecified; K21.9 Gastro-esophageal reflux disease without esophagitis; Z79.890 Hormone replacement therapy; J69.0 Pneumonitis due to inhalation of food and vomit; T50.902A Poisoning by unspecified drugs, medicaments and biological substances, intentional self-harm, initial encounter; F32.A Depression, unspecified; F41.9 Anxiety disorder, unspecified; E03.9 Hypothyroidism, unspecified

== ENCOUNTER 2023-10-10 18:51 | Inpatient (IN) ==
[2023-10-10] MEDS ORDERED: SODIUM CHLORIDE 0.65% NA SOLN 45 ML (OCEAN) PRN (19:30)
[2023-10-10] MEDS ORDERED: hydrOXYzine HCl 25 MG TAB PO PRN ×2 (19:30)
[2023-10-10] MEDS ORDERED: MAGNESIUM HYDROXIDE SUSP 30 ML UDC PO PRN (19:30)
[2023-10-10] MEDS ORDERED: ALUMINUM/MAGNESIUM SUSP 30 ML UDC PO PRN (19:30)
[2023-10-10] MEDS ORDERED: BISMUTH SUBSALICYLATE LIQD 236 ML PO PRN (19:30)
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
[2023-10-11] MEDS: AMOXICILLIN/CLAVULANATE 875 MG TAB PO SCH (09:12)
[2023-10-11] MEDS: LEVOTHYROXINE SODIUM 25 MCG TABLET PO SCH (09:12)
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
[2023-10-11] MEDS: ACETAMINOPHEN 325 MG TAB PO PRN (19:14)
[2023-10-12] MEDS ORDERED: ALBUTEROL HFA 8 GM INHALER INH PRN (08:36)
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
[2023-10-20] MEDS ORDERED: ARIPiprazole 400 MG PRE-FILLED SYRINGE IM SCH (11:30)
== END 2023-10-12 11:45 | disposition home or self-care (01) | DRG 885 ==
LOC: 3S 19:30 → SUATTDRO 19:30
DX: Z59.01 Sheltered homelessness; R45.851 Suicidal ideations; F17.290 Nicotine dependence, other tobacco product, uncomplicated; F84.0 Autistic disorder; Z79.899 Other long term (current) drug therapy; F17.210 Nicotine dependence, cigarettes, uncomplicated; Z91.410 Personal history of adult physical and sexual abuse; Z91.51 Personal history of suicidal behavior; F70 Mild intellectual disabilities; Z88.6 Allergy status to analgesic agent; F39 Unspecified mood [affective] disorder